=== PATIENT | female | born 1950 | race Caucasian/White ===

== ENCOUNTER 2023-09-02 16:13 | Outpatient (RCR) | payer OTHER, MEDICARE, SELFPAY ==
[2023-09-02 13:39] LABS: Glucose - Point of Care 74 mg/dl (70-99)
[2023-09-02 13:59] LABS: Glucose - Point of Care 83 mg/dl (70-99)
[2023-09-02 14:33] LABS: Glucose - Point of Care 88 mg/dl (70-99)
== END 2023-09-02 23:59 | disposition home or self-care (01) ==
LOC: CRHB 16:13
PROVIDERS: ATTENDING PHYSICIAN Internal Medicine Cardiovascular Disease; FAMILY PHYSICIAN Internal Medicine
DX: Z95.2 Presence of prosthetic heart valve (principal)
CPT/HCPCS: 82962; 93798

== ENCOUNTER → 2023-09-18 10:14 | Outpatient (REF) | payer OTHER, SELFPAY | LOC: DHCBC HW 10:14 | PROVIDERS: ATTENDING PHYSICIAN Nurse Practitioner; FAMILY PHYSICIAN Internal Medicine | DX: I10 Essential (primary) hypertension (principal); Z95.2 Presence of prosthetic heart valve; I48.0 Paroxysmal atrial fibrillation; R60.0 Localized edema | CPT/HCPCS: 93306 ==

== ENCOUNTER 2023-10-02 09:37 | Outpatient (RCR) | payer OTHER, MEDICARE, SELFPAY ==
[2023-09-06 09:22] LABS: Glucose - Point of Care 95 mg/dl (70-99)
[2023-09-06 10:05] LABS: Glucose - Point of Care 111 mg/dl (70-99)
== END 2023-10-02 23:59 | disposition home or self-care (01) ==
LOC: CRHB 09:37
PROVIDERS: ATTENDING PHYSICIAN Internal Medicine Cardiovascular Disease; FAMILY PHYSICIAN Internal Medicine
DX: Z95.2 Presence of prosthetic heart valve (principal); I50.9 Heart failure, unspecified; I34.0 Nonrheumatic mitral (valve) insufficiency
CPT/HCPCS: 82962; 93797; 93798

== ENCOUNTER 2023-10-14 14:40 | Outpatient (RCR) | payer OTHER, MEDICARE, SELFPAY | END 2023-10-14 23:59 | disposition home or self-care (01) | LOC: CRHB 14:40 | PROVIDERS: ATTENDING PHYSICIAN Internal Medicine Cardiovascular Disease; FAMILY PHYSICIAN Internal Medicine | DX: Z95.2 Presence of prosthetic heart valve (principal); I48.91 Unspecified atrial fibrillation; I34.0 Nonrheumatic mitral (valve) insufficiency; I11.0 Hypertensive heart disease with heart failure; I50.9 Heart failure, unspecified; J96.90 Respiratory failure, unspecified, unspecified whether with hypoxia or hypercapnia; J90 Pleural effusion, not elsewhere classified | CPT/HCPCS: 93797; 93798 ==

== ENCOUNTER 2023-11-27 14:17 | Outpatient (RCR) | payer OTHER, MEDICARE, SELFPAY ==
[2023-11-13 13:49] VITALS: BP 117/54
[2023-11-13] MEDS: INJECTAFER 265 MG IV (14:01)
[2023-11-13 15:00] VITALS: BP 109/73
[2023-11-27 14:48] VITALS: BP 132/85
[2023-11-27] MEDS: INJECTAFER 265 MG IV (15:03)
[2023-11-27 16:26] VITALS: BP 111/75
== END 2023-11-28 14:01 | disposition home or self-care (01) ==
LOC: OID 14:17
PROVIDERS: ATTENDING PHYSICIAN Internal Medicine
DX: D64.9 Anemia, unspecified (principal); E61.1 Iron deficiency; R94.5 Abnormal results of liver function studies; Z95.2 Presence of prosthetic heart valve
CPT/HCPCS: 96365; J1439

== ENCOUNTER 2024-03-14 19:12 | Inpatient (IN) | payer OTHER, MEDICARE, SELFPAY ==
[2024-03-14] VITALS (17 sets, daily range): BP systolic 103–124; BP diastolic 63–82; BMI 22.2; BMI 21.8
[2024-03-14] MEDS: PROTONIX IV 40 MG IV (17:37)
[2024-03-14] MEDS: NSS 1000 IV (17:40)
[2024-03-14 18:01] LABS: % Basophils 0.6 % (0-2); % Immature Granulocytes 0.4 % (0-0.5); % Lymphocytes 19.8 % (20.5-51.1); % Monocytes 10.3 % (1.7-9.3); % Neutrophils 66.9 % (42.2-75.2); Absolute Eosinophils 0.1 10^3/uL (0-0.7); Absolute Lymphocytes 1.1 10^3/uL (1.2-3.4); Absolute Monocytes 0.6 10^3/uL (0.1-0.6); Absolute Neutrophils 3.7 10^3/uL (1.4-6.5); Hematocrit 18.2 % (37.0-47.0); Hemoglobin 5.6 g/dL (12.0-16.0); Mean Corp Hgb Conc. 30.8 g/dL (33.0-37.0); Mean Corpuscular Hgb 27.5 pg (27.0-31.0); Mean Corpuscular Volume 89.2 fL (81.0-99.0); Mean Platelet Volume 10.1 fL (7.4-10.4); Nucleated Red Blood Cells % 0 %; Platelet Count 366 10^3/uL (130-400); Red Blood Cell Count 2.04 10^6/uL (4.20-5.40); Red Cell Dist. Width 15.6 % (11.5-14.5); White Blood Cell Count 5.5 10^3/uL (4.8-10.8)
[2024-03-14 18:09] LABS: ALT (SGPT) 25 U/L (0-35); AST (SGOT) 34 U/L (14-36); Albumin 2.4 g/dl (3.5-5.0); Alkaline Phosphatase 147 U/L (38-126); Blood Urea Nitrogen 18 mg/dl (7-17); Calcium 8.6 mg/dl (8.4-10.2); Carbon Dioxide 25 mmol/L (22-30); Chloride 107 mmol/L (98-107); Estimated Creatinine Clearance 46 ml/min; Glucose 120 mg/dl (70-99); Potassium 4.2 mmol/L (3.5-5.1); Sodium 135 mmol/L (135-145); Total Bilirubin < 0.1 mg/dl (0.2-1.3); Total Protein 4.2 g/dl (6.3-8.2); eGFR > 60.00
--- NOTE | 2024-03-14 18:18 | HPS.HSE ---
Family Physician
-
Family Physician:
Chief Complaint
-
bleeding
History of Present Illness
Ms. Lana Ambrocio is a 73 yo woman with hx mitral valve insufficiency with flail mitral valve leaflet s/p urgent bioprosthetic mitral valve replacement 07/22/23, paroxysmal afib, essential HTN, PUD with ulcer resulting in obstruction s/p
gastrojejunostomy bypass 2002, presents to the ER with melena.
Patient states she had some cramping since (2 days ago). She had decreased appetite and this morning noticed black stool. She had two episodes, last one being earlier today. No chest pain. Mild lightheadedness, currently feels okay.
No recent fevers/chills. No JOSEPH. No nausea/vomiting. No LE swelling.
Medical History
Past Medical History
Past Medical History: Reports Other
Additional Past Medical History:
Hypothyroidism
Mitral valve prolapse
DDD (degenerative disc disease), lumbar
Heart murmur
Melena
Vitamin D deficiency
Anastomotic ulcer�
Essential (primary) hypertension
History of colon polyps
H/O bypass gastrojejunostomy �
Past Surgical History: Reports Cardiac (bioprosthetic mitral valve repair 2022)
Additional Past Surgical History:
See above
Social History
Tobacco: Non-smoker
Alcohol: None
Drug: None
Personal:
Living: With Family
Employment: Retired
Family History
Family History: Not pertinent
Allergies / Home Medications
Allergies reflects when Allergies were last updated in [facility].
Home Medications with original date entered in [facility]
Allergy/Medication List:
Allergies
Allergy/AdvReac Type Severity Reaction Status Date / Time
No Known Allergies Allergy Unverified 03/14/24 17:00
Home Medications
levothyroxine 100 mcg tablet 100 mcg PO DAILY Thyroid 10/21/21
acetaminophen 325 mg tablet 650 mg (2 x 325 mg) PO Q4HPRN PRN mild pain,headache,temp >101F #0 tabs 07/28/23
apixaban 5 mg tablet (Eliquis) 5 mg PO BID Blood clot prevention/tx #60 tabs 07/28/23
aspirin 81 mg chewable tablet (Children's Aspirin) 81 mg PO DAILY Blood clot prevention/tx #30 tabs 07/28/23
empagliflozin 10 mg tablet (Jardiance) 10 mg PO DAILY Heart Failure #30 tabs 07/28/23
pantoprazole 40 mg tablet,delayed release 40 mg PO DAILY GI prophylaxis #30 tabs 07/28/23
calcium carbonate 600 mg-vitamin D3 10 mcg (400 unit) tablet (Calcium 600 + D(3)) 2 tab PO DAILY 11/13/23
cetirizine 10 mg tablet (Zyrtec) 10 mg PO DAILY PRN seasonal allergy 11/13/23
cholecalciferol (vitamin D3) 50 mcg (2,000 unit) tablet (Vitamin D3) 3 unit PO DAILY 11/13/23
furosemide 40 mg tablet 20 mg PO Q48H Fluid retention/Swelling 11/13/23
multivitamin 1 cap PO DAILY 11/13/23
albuterol 90 mcg/actuation aerosol inhaler 90 mcg inhalation PRN PRN shortness of breath/wheeze 11/27/23
iron 65 mg PO DAILY 03/14/24
metoprolol tartrate 25 mg tablet 12.5 mg PO Q12 Heart disease/condition 03/14/24
potassium chloride 20 mEq tablet,extended release(part/cryst) 20 meq PO Q48H Electrolyte Repletion 03/14/24
Review of Systems
-
History Source: Patient
A 12 point ROS was completed and negative except as noted: Yes
Physical Exam
Vital Signs
Vital Signs
Temp Pulse Resp BP Pulse Ox
98.1 F 100 17 120/82 99
03/14/24 16:59 03/14/24 17:45 03/14/24 17:45 03/14/24 17:19 03/14/24 17:45
Physical Exam
General: No Apparent Distress
HEENT: PERRLA and Other (pale conjunctiva )
Respiratory: Clear; No Wheezes
GI: Soft and Non Tender
Musculoskeletal: No Edema
Skin: Warm and Dry; No Rash
Neuro: AO x 3
Psych: Calm
Laboratory Results
-
03/14/24 17:42
03/14/24 17:42
Laboratory Results
Total Bilirubin < 0.1 mg/dl (0.2-1.3) L 03/14/24 17:42
AST 34 U/L (14-36) 03/14/24 17:42
ALT 25 U/L (0-35) 03/14/24 17:42
Alkaline Phosphatase 147 U/L (38-126) H 03/14/24 17:42
Data Reviewed
-
Diagnostic Radiology: Report Reviewed by me
Lab Data: Labs Reviewed by me
Impression/Plan
-
Ms. Lana Ambrocio is a 73 yo woman with hx mitral valve insufficiency with flail mitral valve leaflet s/p urgent bioprosthetic mitral valve replacement 07/22/23, paroxysmal afib, essential HTN, PUD with ulcer resulting in obstruction s/p
gastrojejunostomy bypass 2002, presents to the ER with melena.
Triage VS: P 114, BP 120/82, SpO2 100% RA
LABS: WBC 5.5, Hg 5.6, PLT 366, Na 135, K+ 4.2, Cl 107, BUN 18, Cr 0.9, Glucose 120, AST 34, ALT 25, Alk Phos 147
ordered for 2 units PRBC and Protonix gtt,f luids
Melena
Acute Gastrointestinal Bleed
Acute Blood Loss Anemia
Hx Peptic Ulcer Disease resulting in obstruction requiring bypass
-admit to IMU
-IV Protonix gtt
-trend Hg
-hold Eliquis
Hx mitral valve insufficiency with flail mitral valve leaflet s/p urgent bioprosthetic mitral valve replacement 07/22/23
-TTE 09/18/23 - EF 50-55%; normal functioning valve replacement
-patient is on Lasix 20q 48 hours at home and Jardiance daily - hold
-monitor volume status closely
Paroxysmal Atrial Fibrillation
-hold Eliquis
Hypothyroidism
-[employer] Synthroid
DVT PPx SCD
FULL CODE
76 minutes spent on patient interaction
--- NOTE | 2024-03-14 18:29 | ED.GENMED ---
History of Present Illness
General
Chief Complaint: Rectal Bleeding
Source: patient
Exam Limitations: none
Time Seen by Provider: 03/14/24 17:20
Nursing documentation reviewed up to this point in time: agreed with
History of Present Illness
History of Present Illness:
Patient reports upset stomach [place] PM. Describes 'feeling off' this weekend. Today passed black stool and has been feeling weak since. Hx of bleeding gastric ulcer in 2021. She states she feels that the symptoms are the same. Brought to ED by
spouse for eval. On eliquis for valve surgery this past spring. States she has not taken any medcation today. Last eliquis dose was last PM.
Past History
Past History
ED Past Medical History: CHF, HTN, Hypothyroidism and Other (Stomach ulcer)
ED Past Surgical History: Cardiac (mitral valve)
Social History
Tobacco: Non-smoker
Alcohol: None
Drug: None
Personal:
Living: with family
Review of Systems
Review of Systems
Allergies reviewed?: Yes
All Other Systems: ROS reviewed and negative except as documented in HPI and ROS
Constitutional: Reports no symptoms
EENT: Reports no symptoms
Respiratory: Reports no symptoms
Cardiac: Reports no symptoms
ABD/GI: Reports black stools
: Reports no symptoms
Musculoskeletal: Reports no symptoms
Skin: Reports no symptoms
Neurological: Reports weakness
Psychiatric: Reports no symptoms
Phy Exam
General Physical Exam
General Presentation: moderate distress
General age: appears stated age
General Skin: warm and dry
General Habitus: normal
General Mental: alert
Cardiovascular Exam
Cardiovascular Exam: regular rate/rhythm and no edema
Pulmonary Exam
Pulmonary Exam: lungs clear and no respiratory distress
Gastrointestinal Exam
Gastrointestinal Exam: normal bowel sounds, non tender, soft, no organomegaly, non distended and no cva tenderness
Rectal Exam: normal sphincter tone, hemorrhoids and soft stool
Stool: black
Guaiac Status: positive
Musculoskeletal Exam
Musculoskeletal Exam: full ROM and neuro vasc intact
Skin Exam
Skin Exam: normal color, warm/dry and no rash
Psychiatric Exam
Psychiatric Exam: normal mood/affect
Course
Orders/Labs/Results
Orders:
Orders
03/14/24 Lunch
Clear Liquid
At Your Request: Full Participation
03/14/24 17:31
Pantoprazole [Protonix IV] 40 mg IV NOW STA
03/14/24 17:32
0.9% Sodium Chloride 1000 ml [Nss] 1,000 ml IV BOLUS
03/14/24 17:42
Type+Screen Urgent
Complete Blood Count/With Diff Urgent
Comprehensive Metabolic Panel Urgent
03/14/24 18:03
Pantoprazole 80 mg/100 ml Nss [Protonix] 80 mg in 100 ml IV NOW
03/14/24 18:04
* Blood Bank Products Urgent
Blood Bank Products: *Packed RBC Leuko(PRBC's)
Quantity: 2
Transfuse Today: Yes
Reason: Bleeding
03/14/24 18:25
PTT Urgent
Prothrombin Time Urgent
03/14/24 18:36
Consult Gastroenterology [GASTROINTESTINAL CONSULT] Urgent
Consulting Provider: Gris Mendiola
Was physician already notified: Yes
03/14/24 18:50
Admit/Transfer Patient As Directed
Co-Sign Provider:
Level of Care: Inpatient admission
Assign to:: IMU- Intermediate Care
Physician / Group: Halley Almaraz
Diagnosis: Acute GI Bleed
Reason for Hospitalization: Acute GI Bleed
Expected length of stay greater than two midnights?: Yes
ELOS- Estimated Length of Stay in days: 3
I certify the patient meets the requirements for IP care: Yes
PRN Pain Medication Management As Directed
May give lesser potent ordered pain med per pt: Yes
preference::
Protocol:: Medication orders for pain may be administered in a
manner that supports deferring to patient preference
when the pt is:
- Requesting an ordered lesser potent pain medication.
Least to most potent pain medications are defined
as: acetaminophen < NSAID < tramadol < opioids
(morphine, oxycodone, hydromorphone).
- Requesting a lesser dose of the same medication IF
ORDERED.
- Requesting a less intrusive route of administration
if both routes are prescribed by the provider (PO <
IV).
03/14/24 18:51
Code Status As Directed
Resuscitation Status: Full Code
03/14/24 23:20
Acetaminophen [Tylenol] 650 mg PO Q4HPRN PRN
03/14/24 23:20
Activity As Directed
Activity Level: As Tolerated
INT (Intravenous Needle Therapy) As Directed
Comment: Place 2 IV catheters of the largest bore possible until stable
Orthostatic Vital Signs As Directed
Orthostatic VS Frequency: Now
Comment: then every four hours for twenty-four hours
Pneumatic Compression Sleeves As Directed
Type: Knee high
Vital Signs As Directed
Frequency: Per unit guidelines
DX Deep Vein Thrombosis Video Routine
03/14/24 23:25
Albuterol [ProAIR HFA INHALER] 90 puff INH R BIDPRN PRN
03/14/24 23:30
Metoprolol [Lopressor] 12.5 mg PO Q12
03/15/24 00:50
H&H Q6H
03/15/24 04:00
Pantoprazole 80 mg/100 ml Nss [Protonix] 80 mg in 100 ml IV Q10H
03/15/24 05:10
Basic Metabolic Panel IN AM
Complete Blood Count/No Diff IN AM
03/15/24 Breakfast
NPO
Allow oral meds: Yes
Allow clear liquids: No
Levothyroxine [Synthroid] 100 mcg PO DAILY@0600
Abnormal Lab Results
03/14/24 03/14/24
17:42 18:25
RBC 2.04 L 10^6/uL
(4.20-5.40)
Hgb 5.6 L* g/dL
(12.0-16.0)
Hct 18.2 L* %
(37.0-47.0)
MCHC 30.8 L g/dL
(33.0-37.0)
RDW 15.6 H %
(11.5-14.5)
Absolute Lymphs (auto) 1.1 L 10^3/uL
(1.2-3.4)
Lymphocytes % 19.8 L %
(20.5-51.1)
Monocytes % 10.3 H %
(1.7-9.3)
PT 15.3 H Sec
(11.4-14.6)
BUN 18 H mg/dl
(7-17)
Glucose 120 H mg/dl
(70-99)
Total Bilirubin < 0.1 L mg/dl
(0.2-1.3)
Alkaline Phosphatase 147 H U/L
(38-126)
Total Protein 4.2 L g/dl
(6.3-8.2)
Albumin 2.4 L g/dl
(3.5-5.0)
Crossmatch IS Only See Detail
03/14/24 17:42
03/14/24 17:42
Vital Signs
Initial and Last Documented VS:
Initial Vital Signs
Temp Pulse Resp BP Pulse Ox
98.1 F 116 20 123/78 100
03/14/24 16:59 03/14/24 16:59 03/14/24 16:59 03/14/24 16:59 03/14/24 16:59
Last Documented Vital Signs
Temp Pulse Resp BP Pulse Ox
97.9 F 86 16 138/82 96
03/15/24 19:30 03/15/24 20:21 03/15/24 19:30 03/15/24 20:21 03/15/24 19:30
*Critical Care Note
Total Time (30-74mins, 75-104mins- exclusive of procedures): Not Applicable
Update Note
Update Note:
Dr. Mendiola consulted. Hold Kcentra unless further bleeding occurs. Hgb 5.6. 2u PRBC's ordered. VSS
ED Attending Note
-
Portions of this chart may have been created with voice recognition software.� Occasional wrong word or��sound alike� substitutions may have occurred due to the inherent limitations of voice recognition software.
Discharge Plan
Departure
Patient Disposition: Admit
Date of Disposition: 03/14/24
Time of Disposition: 18:27
Presentation/result/management discussed w/ accepting MD/DO: Hospitalist
Condition: Fair
Covid-19: Not Applicable
Discharge Problem:
Acute GI bleeding
Interventions
Interventions:
*Risk Screen - Suicide Last Done: 03/14/24 17:49
*General Assessment Last Done: 03/14/24 17:49
*Neglect/Abuse Screening Last Done: 03/14/24 17:49
ED- Fall Risk Assessment Last Done: 03/14/24 17:49
*ED COVID-19 Vaccine History Last Done: 03/14/24 17:49
*Nursing Disposition Last Done: 03/14/24 23:19
UZ-Cwzuni-Otwcsekdxu Assessment Last Done: 03/14/24 17:50
ED- Cardiac Assessment Last Done: 03/14/24 17:50
ED- Pulmonary Assessment Last Done: 03/14/24 17:50
Discharge Date and Time
Discharge Date/Time: 03/14/24 23:19
[2024-03-14] MEDS: PROTONIX 100 IV (18:33)
[2024-03-14 18:39] LABS: INR 1.23; PT 15.3 Sec (11.4-14.6)
[2024-03-14 18:40] LABS: APTT 27.7 Sec (23.4-35.0)
[2024-03-14] MEDS: LOPRESSOR 12.5 MG PO (23:30)
--- NOTE | 2024-03-14 23:45 | PTCARENOTE ---
Pt received from ED via stretcher to [id number]. With min assist pt amb to bathroom to void. Denies dizziness/lightheadedness. VSS. Afebrile. SR on CM . POX RA 96%. Denies abd pain/discomfort. Skin pale. Protonix gtt infusing as ordered. 2 units PRBC
finished infusing in ED. Pt states she feels much better since infusions. Rest of assessment as documented. Oriented to room and surroundings. Call concepcion remains within reach. Will continue to monitor.
[2024-03-15] VITALS (13 sets, daily range): BP systolic 109–144; BP diastolic 70–83; PULSE 87–95; BMI 21.7
[2024-03-15 01:09] LABS: Hematocrit 26.5 % (37.0-47.0)
[2024-03-15] MEDS: PROTONIX 100 IV ×3 (03:52→23:52)
[2024-03-15] MEDS: SYNTHROID 100 MCG PO (05:04)
[2024-03-15 05:29] LABS: Hematocrit 25.2 % (37.0-47.0); Hemoglobin 8.5 g/dL (12.0-16.0); Mean Corp Hgb Conc. 33.7 g/dL (33.0-37.0); Mean Corpuscular Hgb 28.6 pg (27.0-31.0); Mean Corpuscular Volume 84.8 fL (81.0-99.0); Mean Platelet Volume 9.8 fL (7.4-10.4); Platelet Count 262 10^3/uL (130-400); Red Blood Cell Count 2.97 10^6/uL (4.20-5.40); Red Cell Dist. Width 15.8 % (11.5-14.5); White Blood Cell Count 5.1 10^3/uL (4.8-10.8)
[2024-03-15 05:43] LABS: Blood Urea Nitrogen 18 mg/dl (7-17); Calcium 7.9 mg/dl (8.4-10.2); Carbon Dioxide 26 mmol/L (22-30); Chloride 111 mmol/L (98-107); Estimated Creatinine Clearance 59 ml/min; Glucose 90 mg/dl (70-99); Potassium 4.2 mmol/L (3.5-5.1); Sodium 134 mmol/L (135-145); eGFR > 60.00
--- NOTE | 2024-03-15 08:32 | W.PN.HOSP.TC ---
Today's Communication/Plan
-
OK for transfer to tele
-repeat Hg this evening
Assessment / Plan
Assessment / Plan
Ms. Lana Ambrocio is a 73 yo woman with hx mitral valve insufficiency with flail mitral valve leaflet s/p urgent bioprosthetic mitral valve replacement 07/22/23, paroxysmal afib, essential HTN, PUD with ulcer resulting in obstruction s/p
gastrojejunostomy bypass 2002, presents to the ER with melena.
Melena
Acute Gastrointestinal Bleed
Acute Blood Loss Anemia
Hx Peptic Ulcer Disease resulting in obstruction requiring bypass
-admit to IMU
-IV Protonix gtt
-trend Hg
-hold Eliquis
-appreciate GI, plan for EGD tomorrow
Hx mitral valve insufficiency with flail mitral valve leaflet s/p urgent bioprosthetic mitral valve replacement 07/22/23
-TTE 09/18/23 - EF 50-55%; normal functioning valve replacement
-patient is on Lasix 20q 48 hours at home and Jardiance daily - hold
-monitor volume status closely
Paroxysmal Atrial Fibrillation
-hold Eliquis
Hypothyroidism
-[employer]OR[employer] Synthroid
DVT PPx SCD
FULL CODE
51 minutes spent on patient care
Anticipated Discharge: > 48 hours
Subjective/Interval History
-
Date of Service: March 15, 2024
feeling well
no chest pain or shortness of breath
Objective Data
-
Labs:
Laboratory Results
03/15/24 03/15/24 03/15/24
00:50 05:10 13:00
WBC 5.1
Hgb 9.0 L D 8.5 L Pending
Hct 26.5 L 25.2 L Pending
Plt Count 262 D
Sodium 134 L
Potassium 4.2
Chloride 111 H
Carbon Dioxide 26
BUN 18 H
Creatinine 0.7
Glucose 90
Calcium 7.9 L
03/15/24
19:00
WBC
Hgb Pending
Hct Pending
Plt Count
Sodium
Potassium
Chloride
Carbon Dioxide
BUN
Creatinine
Glucose
Calcium
Vital Signs:
Vital Signs
Temp Pulse Resp BP Pulse Ox
98.3 F 90 22 109/74 96
03/15/24 07:34 03/15/24 06:00 03/15/24 06:00 03/15/24 06:00 03/15/24 00:11
I&O
03/14/24 03/15/24 03/16/24
06:59 06:59 06:59
Intake Total 760 / 760
Balance 760 / 760
Review of Systems
-
History Source: Patient
All other systems: Reviewed and negative
Physical Exam
-
General: No Apparent Distress
HEENT: PERRLA
Respiratory: Clear to Auscultation; Negative Wheezes
Cardiac: Regular Rhythm and S1/S2
GI: Soft and Nontender
Musculoskeletal: No Edema
Skin: Warm and Dry; Negative Rash
Neuro: AO x 3
Psych: Calm
Data Reviewed
-
Diagnostic Radiology: Report Reviewed by me
Labs: Labs Reviewed by me
[2024-03-15] MEDS: LOPRESSOR 12.5 MG PO ×2 (08:57→20:21)
--- NOTE | 2024-03-15 11:09 | CON.GI ---
Consultation
-
Date/Time Consultation Requested: 03/14/24
Date/Time Consultation Performed: 03/15/24
Requesting Provider:
Performing Provider:
Reason for Consultation: GIB, acute blood loss anemia
Medical History
Chief Complaint / HPI
Chief Complaint: melena
History of Present Illness:
This is a 73-year-old female with past medical history of GERD, HTN, Hypothyroidism, complicated PUD (s/p exploratory laparotomy truncal vagotomy, hand sewn gastrojejunostomy, drainage of intra-abdominal abscess, and repair of perforated duodenal
ulcer with Tyson patch in 11/[address] Nascimento), gastroparesis, DDD, Osteoporosis, Hx mitral valve insufficiency with flail mitral valve leaflet s/p urgent bioprosthetic mitral valve replacement 07/22/23, A.fib on Eliquis with prior history of upper
GI bleed in 2021 on NSAIDs and Fosamax she did have 3 attempted endoscopies in October 2021 but unable to complete because of a large amount of food in her stomach and she was told to strictly avoid NSAIDs and was taken off Fosamax at that time.� She
also was noted to have a possible abscess at that time and was treated with antibiotics and had a surgical evaluation. It was thought that the gastroparesis was related to post vagotomy state and patent B2 with no obstruction noted. she was also
started on PPI and told to stay indefinitely she sees Dr. Barajas in the office.� She did have a repeat endoscopy in January 2022 which showed jejunal ulcers at the anastomosis nonbleeding.� She had a colonoscopy in April 2022 which showed colon
polyps and was recommended repeat in 2024.� She now presents with history of melena on Saturday and another episode yesterday and on admission was noted to have a hemoglobin of 5.6 and after she received 2 units of packed red blood cells her repeat is
8.5 and her Eliquis is being held. her hemoglobin on 07/27/2023 was 10.5.� She unfortunately had restarted taking Excedrin for the past couple of months almost daily but she says she has been compliant with her pantoprazole.� She denies any nausea
vomiting symptoms no hematemesis.� She also denies any diarrhea or constipation currently.� No recent weight loss no fevers or chills no chest pain dizziness or syncope
Past Medical History
Past Medical History: Other (GERD, HTN, Hypothyroidism, complicated PUD, gastroparesis, DDD, Osteoporosis, Hx mitral valve insufficiency with flail mitral valve leaflet s/p urgent bioprosthetic mitral valve replacement 07/22/23, Yeison on Eliquis)
Past Surgical History: Other (, complicated PUD s/p exploratory laparotomy truncal vagotomy, hand sewn gastrojejunostomy, drainage of intra-abdominal abscess, and repair of perforated duodenal ulcer with Tyson patch in 11/2002 by
Azam), s/p urgent bioprosthetic mitral valve replacement 07/22/23)
Social History
Tobacco: Non-Smoker
Alcohol: None
Drug: None
Living: With Family
Family History
Family History: Reviewed & Not Pertinent
Allergies / Home Medications
Allergy/AdvReac Type Severity Reaction Status Date / Time
No Known Allergies Allergy Unverified 03/14/24 17:00
�Medication �Instructions �Recorded
levothyroxine 100 mcg tablet 100 mcg PO DAILY Thyroid 10/21/21
acetaminophen 325 mg tablet 650 mg (2 x 325 mg) PO Q4HPRN PRN 07/28/23
mild pain,headache,temp >101F #0
tabs
apixaban 5 mg tablet (Eliquis) 5 mg PO BID Blood clot 07/28/23
prevention/tx #60 tabs
aspirin 81 mg chewable tablet 81 mg PO DAILY Blood clot 07/28/23
(Children's Aspirin) prevention/tx #30 tabs
empagliflozin 10 mg tablet 10 mg PO DAILY Heart Failure #30 07/28/23
(Jardiance) tabs
pantoprazole 40 mg tablet,delayed 40 mg PO DAILY GI prophylaxis #30 07/28/23
release tabs
calcium carbonate 600 mg-vitamin 2 tab PO DAILY Supplement 11/13/23
D3 10 mcg (400 unit) tablet
(Calcium 600 + D(3))
cetirizine 10 mg tablet (Zyrtec) 10 mg PO DAILY PRN seasonal allergy 11/13/23
cholecalciferol (vitamin D3) 50 3 unit PO DAILY Supplement 11/13/23
mcg (2,000 unit) tablet (Vitamin
D3)
furosemide 40 mg tablet 20 mg PO Q48H Fluid 11/13/23
retention/Swelling
multivitamin 1 cap PO DAILY Supplement 11/13/23
albuterol 90 mcg/actuation aerosol 90 mcg inhalation PRN PRN 11/27/23
inhaler shortness of breath/wheeze
iron 65 mg PO DAILY Supplement 03/14/24
metoprolol tartrate 25 mg tablet 12.5 mg PO Q12 Heart 03/14/24
disease/condition
potassium chloride 20 mEq 20 meq PO Q48H Electrolyte 03/14/24
tablet,extended release(part/cryst) Repletion
Review of Systems
-
All other systems: A 12 pt ROS was Negative except as stated above in HPI
Vital Signs
Temp Pulse Resp BP Pulse Ox
98.0 F 96 12 118/75 99
03/15/24 11:08 03/15/24 08:59 03/15/24 08:59 03/15/24 08:59 03/15/24 09:06
Physical Exam
Exam
General: No Apparent Distress
HEENT: Normocephalic
Respiratory: Clear
Cardiac: S1/S2
GI: Soft, Non Tender, Non Distended and Normal Bowel Sounds
Musculoskeletal: No Clubbing
Skin: Warm
Neuro: Awake, Alert and Oriented
Psych: Calm
Results
WBC 5.1 10^3/uL (4.8-10.8) 03/15/24 05:10
Hgb Cancelled 03/15/24 19:00
Hct Cancelled 03/15/24 19:00
MCV 84.8 fL (81.0-99.0) 03/15/24 05:10
Plt Count 262 10^3/uL (130-400) D 03/15/24 05:10
Absolute Neuts (auto) 3.7 10^3/uL (1.4-6.5) 03/14/24 17:42
PT 15.3 Sec (11.4-14.6) H 03/14/24 18:25
INR 1.23 03/14/24 18:25
APTT 27.7 Sec (23.4-35.0) 03/14/24 18:25
Sodium 134 mmol/L (135-145) L 03/15/24 05:10
Potassium 4.2 mmol/L (3.5-5.1) 03/15/24 05:10
Chloride 111 mmol/L (98-107) H 03/15/24 05:10
Carbon Dioxide 26 mmol/L (22-30) 03/15/24 05:10
BUN 18 mg/dl (7-17) H 03/15/24 05:10
Creatinine 0.7 mg/dL (0.6-1.0) 03/15/24 05:10
Calcium 7.9 mg/dl (8.4-10.2) L 03/15/24 05:10
Total Bilirubin < 0.1 mg/dl (0.2-1.3) L 03/14/24 17:42
AST 34 U/L (14-36) 03/14/24 17:42
ALT 25 U/L (0-35) 03/14/24 17:42
Alkaline Phosphatase 147 U/L (38-126) H 03/14/24 17:42
Diagnostic Image Results:
Prior GI Procedures:
04/20/2022 colonoscopy diverticulosis and multiple colon polyps and recommended repeat in 3 years
01/19/2022 EGD normal esophagus, moderate erythema stomach, medium amount of food in the stomach, few nonbleeding superficial ulcers in the jejunum at the anastomosis largest 2 mm in size. Jejunum more distal was normal. Exam limited due to food in
the stomach unable to do a full inspection. �
10/23/2021 EGD: Normal esophagus. A large amount of food (residue) in the stomach. No specimens collected.
10/22/21 EGD done. Aborted again in stomach due to food, green in color. Does not appear to be blood
10/21/2021 EGD done. Distal esophagitis. Large amount of food, dark green in color. No overt blood, but color of food bezoar was coffee/green. Aborted procedure in stomach
Assessment / Plan
-
1. Acute blood loss anemia with melena 2 episodes 1 on Saturday and one Saturday with hemoglobin of 5.6 which responded to 2 units of packed red blood cells repeat hemoglobin is 8.5 with no further active bleeding. Eliquis on hold last dose was 8/10
a.m. Most likely etiology is recurrent peptic ulcer disease from NSAIDs she does have prior history of complicated obstructing PUD in 2002 as described above is status post B2 and vagotomy and Tyson patch for perforated DU and also had recurrent
upper GI bleed secondary to NSAID use in 2021 and was noted to have anastomotic ulcers. Continue Protonix drip will schedule for endoscopy tomorrow told her to strictly avoid NSAIDs indefinitely and to stay on PPI indefinitely. She says she came
off of NSAIDs after the upper GI bleed in 2021 but restarted again a couple of months ago
2 as described above she had 3 aborted endoscopies in October 2021 for retained food in stomach when she presented with the upper GI bleed and finally was able to complete EGD in January 2022 as outpatient. Most likely has gastroparesis from post
vagotomy state but she has been tolerating meals without any symptoms of nausea vomiting or early satiety encouraged her to eat small frequent, low-fat, low residue meals.
3. History of multiple colon polyps due for repeat colonoscopy in 2024
Data Reviewed
-
Radiology: Report Reviewed by me
-
-
Thank you for consultation and allowing me to participate in the patient's care. Please call the nutrition aides teacher GI physician during the after hours with any questions or concerns.
--- NOTE | 2024-03-15 12:03 | TRANSFER ---
Pt was rec'd this am from operation shift supervisor, AOx3, feeling better. Orthos neg for tilt. +1 black BM this am-pt reported to MD. MONTERO, plan discussed with care team, pt stable to be downgraded to tele. Per Dr. Almaraz, next Hgb draw due at 16:00, please TT
result to her.
Report called to [facility], pt transported via stretcher with volunteer.
[2024-03-15 15:48] LABS: Hemoglobin 9.7 g/dL (12.0-16.0)
[2024-03-15] MEDS: TYLENOL 650 MG PO (20:23)
[2024-03-16] VITALS (7 sets, daily range): BP systolic 107–131; BP diastolic 1–85; PULSE 95–104
[2024-03-16] MEDS: SYNTHROID 100 MCG PO (05:13)
[2024-03-16] MEDS: LOPRESSOR 12.5 MG PO (08:20)
[2024-03-16] MEDS: TYLENOL 650 MG PO (08:28)
[2024-03-16 08:55] LABS: Hematocrit 26.5 % (37.0-47.0); Hemoglobin 8.8 g/dL (12.0-16.0); Mean Corp Hgb Conc. 33.2 g/dL (33.0-37.0); Mean Corpuscular Hgb 28.9 pg (27.0-31.0); Mean Corpuscular Volume 86.9 fL (81.0-99.0); Mean Platelet Volume 9.7 fL (7.4-10.4); Platelet Count 271 10^3/uL (130-400); Red Blood Cell Count 3.05 10^6/uL (4.20-5.40); Red Cell Dist. Width 15.9 % (11.5-14.5); White Blood Cell Count 4.2 10^3/uL (4.8-10.8)
[2024-03-16] MEDS: PROTONIX 100 IV ×2 (08:59→13:15)
[2024-03-16 09:41] LABS: Blood Urea Nitrogen 9 mg/dl (7-17); Calcium 7.7 mg/dl (8.4-10.2); Carbon Dioxide 23 mmol/L (22-30); Chloride 110 mmol/L (98-107); Estimated Creatinine Clearance 69 ml/min; Glucose 94 mg/dl (70-99); Potassium 3.8 mmol/L (3.5-5.1); Sodium 135 mmol/L (135-145); eGFR > 60.00
--- NOTE | 2024-03-16 12:33 | W.PN.HOSP.TC ---
Addendum entered and electronically signed by Tacos Thornton MD 03/16/24 18:09:
Acute gastrointestinal bleeding likely exacerbated with the use of NSAIDs and an aspirin Eliquis
Discussed with gastroenterology. Okay for discharge. Hold aspirin and Eliquis for 2 days.
Postprocedure patient tolerated diet.
More than 30 minutes spent in discharge including
Final examination of the patient
Summarizing hospital stay
Instructions for continuing care to all relevant caregivers
Preparation of discharge records, prescriptions, and referral forms
Total time spent (in minutes): 55
Original Note:
Today's Communication/Plan
-
await EGD
GI recs
restart eliquis pending Gi procedures/recs
Assessment / Plan
Assessment / Plan
Ms. Lana Ambrocio is a 73 yo woman with hx mitral valve insufficiency with flail mitral valve leaflet s/p urgent bioprosthetic mitral valve replacement 07/22/23, paroxysmal afib, essential HTN, PUD with ulcer resulting in obstruction s/p
gastrojejunostomy bypass 2002, presents to the ER with melena.
Melena
Acute Gastrointestinal Bleed
Acute Blood Loss Anemia
Hx Peptic Ulcer Disease resulting in obstruction requiring bypass
-IV Protonix gtt
-trend Hg. Hgb 8.8
-hold Eliquis
-appreciate GI, plan for EGD today
Hx mitral valve insufficiency with flail mitral valve leaflet s/p urgent bioprosthetic mitral valve replacement 07/22/23
-TTE 09/18/23 - EF 50-55%; normal functioning valve replacement
-patient is on Lasix 20q 48 hours at home and Jardiance daily - hold
-monitor volume status closely
Paroxysmal Atrial Fibrillation
-hold Eliquis
Hypothyroidism
-GLASS CURVATURE GAUGER Synthroid
DVT PPx SCD
FULL CODE
Anticipated Discharge: Within 24 hours
Subjective/Interval History
-
Date of Service: March 16, 2024
Abdominal pain nausea vomiting
Awaiting for EGD
Objective Data
-
Labs:
Laboratory Results
03/16/24
08:27
WBC 4.2 L
Hgb 8.8 L
Hct 26.5 L
Plt Count 271
Sodium 135
Potassium 3.8
Chloride 110 H
Carbon Dioxide 23
BUN 9
Creatinine 0.5 L
Glucose 94
Calcium 7.7 L
Vital Signs:
Vital Signs
Temp Pulse Resp BP Pulse Ox
97.9 F 91 14 117/73 98
03/16/24 11:00 03/16/24 11:00 03/16/24 11:00 03/16/24 11:00 03/16/24 11:00
I&O
03/15/24 03/16/24 03/17/24
06:59 06:59 06:59
Intake Total 760 / 760 960 / 960
Balance 760 / 760 960 / 960
Physical Exam
-
General: No Apparent Distress
HEENT: Normocephalic, Atraumatic and Moist Mucous Membranes
Respiratory: Clear to Auscultation; Negative Wheezes
Cardiac: Regular Rhythm and S1/S2
GI: Soft and Nontender
Musculoskeletal: No Edema
Skin: Warm and Dry; Negative Rash
Neuro: AO x 3
Psych: Calm
--- NOTE | 2024-03-16 14:21 | CM ---
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
Pharmacy: [facility]
PCP: Dr. Lara
--- NOTE | 2024-03-16 14:39 | PN.CDI ---
CDI
- -
CDI:
Physician Documentation Request
Admit Date: 03/14/24 19:12
Dear Doctor Norberto,
Patient admitted with melena.
03/16 PN, 'Acute Gastrointestinal Bleed...Acute Blood Loss Anemia...hold Eliquis.'
Please clarify the likely relationship between these conditions:
Yes, acute gastrointestinal bleed/ ABLA is associated with/ enhanced by Eliquis.
No, acute gastrointestinal bleed/ ABLA is not associated/ enhanced by Eliquis___ but it is due to ___. (Please specify)
Unable to determine
Use of terms such as suspected, likely, concern for, or probable (associated with a specific diagnosis that is being evaluated, monitored, or treated as if it exists) are acceptable and can be coded in the inpatient setting, when documented at the
time of discharge.
Thank you,
Moraima REED,RN,CCDS
CDI Specialist
Available via tiger text
Please use your independent medical judgment in providing your response.
--- NOTE | 2024-03-16 17:04 | W.DCSUMMARY ---
Discharge Summary
Discharge Data
Date of Admission: 03/14/24
Date of Discharge: 03/16/24
-
Pending Results: No
Hospital Course
73 yo woman with hx mitral valve insufficiency with flail mitral valve leaflet s/p urgent bioprosthetic mitral valve replacement 07/22/23, paroxysmal afib, essential HTN, PUD with ulcer resulting in obstruction s/p gastrojejunostomy bypass 2002,
presents to the ER with melena. Patient hemoglobin was trended with significant drop noted. Patient received units of PRBC. Patient was started on Protonix infusion. Patient was seen and evaluated by gastroenterology. Patient underwent
endoscopy which showed normal esophagus. Patent Billroth II gastrojejunostomy was found, characterized by erythema and ulceration. A medium amount of food (residue) in the stomach. Non-bleeding jejunal ulcers with no stigmata of bleeding. No
specimens collected. Postprocedure discussed with gastroenterology recommended to hold aspirin and Eliquis for 48 hours postprocedure. Patient tolerated diet postprocedure and will be discharged home with recommendation to follow-up outpatient
with primary doctor for repeat blood work. Also recommend to follow-up with the primary art dealer.
Discharge Plan
-
Patient Disposition: Home (Routine Discharge)
Discharge Diagnosis/Procedures: Acute gastrointestinal bleed likely exacerbated due to NSAID usage status post endoscopy
Anemia status post blood transfusion
Condition: Fair
Diet: As tolerated
Activity: With assistance and As tolerated
Driving Restrictions: No driving for 24 hours
Blood Work: CBC IN 1 WEEK with primary doctor.
Activity Restrictions/Additional Instructions:
- No ibuprofen, naproxen, or other non-steroidal anti-inflammatory drugs INDEFINITELY.
Referrals:
Cydney Barajas MD [Active] - None
Gordon Lara MD [Family Provider] -
Prescriptions:
Continued
levothyroxine 100 MCG tablet
100 mcg PO DAILY
Jardiance 10 mg Tablet
10 mg PO DAILY Qty: 30 3RF
acetaminophen 325 mg Tablet
650 mg PO Q4HPRN PRN (Reason: mild pain,headache,temp >101F ) Qty: 0 0RF
cetirizine [Zyrtec] 10 mg Tablet
10 mg PO DAILY PRN (Reason: seasonal allergy)
multivitamin Capsule
1 cap PO DAILY
calcium carbonate-vitamin D3 [Calcium 600 + D(3)] 600 mg-10 mcg (400 unit) Tablet
2 tab PO DAILY
cholecalciferol (vitamin D3) [Vitamin D3] 50 mcg (2,000 unit) Tablet
3 unit PO DAILY
furosemide 40 mg tablet
20 mg PO Q48H
albuterol 90 mcg/actuation Aerosol
90 mcg INHALATION PRN PRN (Reason: shortness of breath/wheeze)
iron
65 mg PO DAILY
potassium chloride 20 mEq tablet,ER particles/crystals
20 meq PO Q48H
metoprolol tartrate 25 mg tablet
12.5 mg PO Q12
Changed
pantoprazole 40 mg Tablet,Delayed Release (Dr/Ec)
40 mg PO BID Qty: 60 0RF
Held
Eliquis 5 mg Tablet
5 mg PO BID Qty: 60 3RF
Hold Instructions: Resume on 03/19/24.
aspirin [Children's Aspirin] 81 mg Tablet,Chewable
81 mg PO DAILY Qty: 30 2RF
Hold Instructions: Resume on 03/19/24.
Discharge Orders:
Discharge Patient (As Directed); Ordered 03/16/24
Ordered By: Tacos Thornton
Discharge Date and Time
Print Language: ALBANIAN
== END 2024-03-16 17:49 | disposition home or self-care (01) | DRG 813 ==
LOC: 4 WEST ACU 19:12
PROVIDERS: Nurse Practitioner; ADMITTING PHYSICIAN Student in an Organized Health Care Education/Training Program; ATTENDING PHYSICIAN Hospitalist; CONSULT PHYSICIAN Internal Medicine Gastroenterology; EMERGENCY PHYSICIAN Emergency Medicine; FAMILY PHYSICIAN Internal Medicine
PROC: 30233N1 Transfusion of Nonautologous Red Blood Cells into Peripheral Vein, Percutaneous Approach (ICD-10-PCS; 2024-03-14)
PROC: 0DJ08ZZ Inspection of Upper Intestinal Tract, Via Natural or Artificial Opening Endoscopic (ICD-10-PCS; 2024-03-16)
DX: D68.32 Hemorrhagic disorder due to extrinsic circulating anticoagulants (principal); K92.1 Melena; D62 Acute posthemorrhagic anemia; I11.0 Hypertensive heart disease with heart failure; I50.9 Heart failure, unspecified; E03.9 Hypothyroidism, unspecified; Z95.3 Presence of xenogenic heart valve; K28.9 Gastrojejunal ulcer, unspecified as acute or chronic, without hemorrhage or perforation; I48.0 Paroxysmal atrial fibrillation; T45.515A Adverse effect of anticoagulants, initial encounter; T39.015A Adverse effect of aspirin, initial encounter; T39.395A Adverse effect of other nonsteroidal anti-inflammatory drugs [NSAID], initial encounter; K21.9 Gastro-esophageal reflux disease without esophagitis; E55.9 Vitamin D deficiency, unspecified; M51.36 Other intervertebral disc degeneration, lumbar region; M81.0 Age-related osteoporosis without current pathological fracture; J30.2 Other seasonal allergic rhinitis; R06.02 Shortness of breath; R06.2 Wheezing; Z79.01 Long term (current) use of anticoagulants; Z79.82 Long term (current) use of aspirin; Z79.84 Long term (current) use of oral hypoglycemic drugs; Z79.890 Hormone replacement therapy; Z79.899 Other long term (current) drug therapy; Z98.0 Intestinal bypass and anastomosis status; Z87.11 Personal history of peptic ulcer disease; Z86.79 Personal history of other diseases of the circulatory system; Z87.19 Personal history of other diseases of the digestive system; Z86.010 Personal history of colon polyps
CPT/HCPCS: 36430; 80048; 80053; 85014; 85018; 85025; 85027; 85610; 85730; 86850; 86900; 86901; 86920; 96361; 96365; 96366; 99285; P9016

== ENCOUNTER → 2024-03-31 09:03 | Outpatient (REF) | payer OTHER, SELFPAY | LOC: HWRCS 09:03 | PROVIDERS: ATTENDING PHYSICIAN Thoracic Surgery (Cardiothoracic Vascular Surgery); FAMILY PHYSICIAN Internal Medicine | DX: Z98.890 Other specified postprocedural states (principal); Z95.2 Presence of prosthetic heart valve | CPT/HCPCS: 93306 ==

== ENCOUNTER → 2024-05-06 16:30 | Outpatient (REF) | payer OTHER, MEDICARE, SELFPAY | LOC: HWRAD 16:30 | PROVIDERS: ATTENDING PHYSICIAN Internal Medicine | DX: J18.9 Pneumonia, unspecified organism (principal) | CPT/HCPCS: 71046 ==

== ENCOUNTER → 2024-11-05 12:10 | Outpatient (REF) | payer OTHER, SELFPAY | LOC: RAD 12:10 | PROVIDERS: ATTENDING PHYSICIAN Physician Assistant | DX: R10.31 Right lower quadrant pain (principal) | CPT/HCPCS: 74177; Q9967 ==

== ENCOUNTER 2024-11-30 15:52 | Inpatient (IN) | payer OTHER, SELFPAY ==
[2024-11-30] VITALS (24 sets, daily range): BP systolic 88–118; BP diastolic 48–100; BMI 23.4; BMI 23.2
--- NOTE | 2024-11-30 11:37 | ED.GENMED ---
History of Present Illness
General
Chief Complaint: Breathing Problem
Time Seen by Provider: 11/30/24 11:37
History of Present Illness
History of Present Illness:
TIME OF INITIAL ENCOUNTER: 11:40 AM
HPI: The patient presents with onset of palpitations this morning. She has a history of atrial fibrillation. She normally does not sense the atrial fibrillation. She has been taking the Eliquis and did not miss any doses except did not take this
morning's dose of Eliquis yet. She was found to be in rapid A-fib with rates in the 170s to 210s upon arrival.
EXAM:
GENERAL: Well appearing in no distress
HEENT: Moist oral mucosa
CARDIOVASCULAR: No murmurs, tachycardic heart rate, irregular rhythm, No chest wall tenderness
PULMONARY: No respiratory distress, breath sounds are clear and equal
ABDOMEN: Soft with no peritoneal signs, no tenderness
NEUROLOGIC: Excellent strength all extremities, no coordination deficits
PSYCHIATRIC: Appropriate mental status, normal insight and judgement
EXTREMITIES: Nontender, no edema, moves all extremities equally
SKIN: No rash, no lesions
NUMBER AND COMPLEXITY OF PROBLEMS ADDRESSED AT THE ENCOUNTER
Pertinent past medical history: PUD with obstruction in the past status post GJ bypass in 2002, paroxysmal A-fib, flail mitral valve leaflet with bioprosthetic replacement in 2022
� Acute Exacerbation and/or Progression of Chronic Illness: This is an acute problem
� Differential Diagnosis includes: Rapid atrial fibrillation, electrolyte abnormality, thyroid disease, dehydration
AMOUNT AND/OR COMPLEXITY OF DATA TO BE REVIEWED AND ANALYZED
� I performed an independent evaluation of and my interpretation is:
EKG: A-fib, ventricular rate 178
CT:
X-rays: No consolidation on chest x-ray
Laboratory Studies: Chemistries unremarkable however BUN is high at 27, free T4 is normal
Other:
� Review of other/old records: The patient had bioprosthetic mitral valve replacement due to flail mitral valve leaflet in 2022
� Clinical information was obtained by an independent historian: Spoke to at bedside
� Prescriptions/Medications Considered but not given:
� Further testing considered but not performed:
RISK OF COMPLICATIONS AND/OR MORBIDITY OR MORTALITY OF PATIENT MANAGEMENT
� Social determinants of health affecting care: Lives at home spoke to white count 14.7, hemoglobin normal,
� Discussion with other providers:Discussed with Dr. Thacker, discussed with Dr. Dukes for admission
� Escalation of care including admission/observation vs risk of discharge considered: The patient presented with palpitations. Considered electrocardioversion. I also discussed with Dr. Thacker. The patient thinks that is
possible that she missed a dose of Eliquis in the past 2 to 3 weeks therefore may not be safe to cardiovert her urgently now. Her heart rate is improved while on Cardizem but her blood pressure dropped. She is responding to IV fluids. Overall she
feels better.
ANY OTHER UPDATES:
Past History
Past History
ED Past Medical History: CHF, HTN, Hypothyroidism and Other (Stomach ulcer)
ED Past Surgical History: Cardiac (mitral valve)
Social History
Tobacco: Non-smoker
Alcohol: None
Drug: None
Personal:
Living: with family
Phy Exam
Physical Exam
Physical Exam:
See HPI
Scores
Heart Failure Risk
Heart Failure Risk Score: Not Applicable
Course
Orders/Labs/Results
Orders:
Orders
11/30/24 11:23
Electrocardiogram (*1) Urgent
Reason for Study: Shortness of Breath
11/30/24 11:24
EKG- Treatment ONCE
11/30/24 11:44
Apixaban [Eliquis] 5 mg PO NOW STA
Diltiazem HCl [Cardizem] 10 mg IV NOW STA
Diltiazem HCl [Cardizem] 25 mg .ROUTE .[facility]
11/30/24 11:45
Complete Blood Count/With Diff Urgent
Comprehensive Metabolic Panel Urgent
Manual Differential Urgent
Troponin I Urgent
11/30/24 11:47
Free T4 Urgent
PT/INR [Prothrombin Time] Urgent
Is patient on Coumadin/Warfarin?: No
Comment: [email or web address]
PTT Urgent
TSH Reflex To Free T4 Urgent
11/30/24 12:00
Diltiazem 125 mg/125 ml Nss [Cardizem] 125 mg in 125 ml IV PER PROTOCOL
Initial dose in mg/hr, then titrate:: 5
Titrate to keep:: Heart rate 80-100 bpm
Titrate by mg/hr:: 5 mg/hr
Frequency of titrations (minutes):: 15
Maximum dose in mg/hr:: 15
11/30/24 12:06
0.9% Sodium Chloride 500 ml [Nss] 500 ml IV BOLUS
11/30/24 13:38
CR Chest Portable - 1 View Urgent
Comment:
Reason For Exam: hypoxia
Reason Study Needs to be Portable: Patient Unstable
11/30/24 14:27
Admit/Transfer Patient As Directed
Co-Sign Provider:
Level of Care: Inpatient admission
Assign to:: IVU
Physician / Group: Ernst, Maximiliano
Diagnosis: atrial fibrillation RVR
Reason for Hospitalization: atrial fibrillation RVR
Expected length of stay greater than two midnights?: Yes
ELOS- Estimated Length of Stay in days: 3
I certify the patient meets the requirements for IP care: Yes
11/30/24 14:28
PRN Pain Medication Management As Directed
May give lesser potent ordered pain med per pt: Yes
preference::
Protocol:: Medication orders for pain may be administered in a
manner that supports deferring to patient preference
when the pt is:
- Requesting an ordered lesser potent pain medication.
Least to most potent pain medications are defined
as: acetaminophen < NSAID < tramadol < opioids
(morphine, oxycodone, hydromorphone).
- Requesting a lesser dose of the same medication IF
ORDERED.
- Requesting a less intrusive route of administration
if both routes are prescribed by the provider (PO <
IV).
11/30/24 14:29
Code Status As Directed
Resuscitation Status: Full Code
Abnormal Lab Results
11/30/24 11/30/24
11:45 11:47
WBC 14.7 H 10^3/uL
(4.8-10.8)
Abs Neuts (Manual) 12.3 H 10^3/uL
(1.4-6.5)
Band Neutrophils 10 H %
(0-3)
Lymphocytes (Manual) 7 L %
(20-51)
PT 18.8 H Sec
(11.4-14.6)
APTT 38.5 H Sec
(23.4-35.0)
Carbon Dioxide 20 L mmol/L
(22-30)
BUN 27 H mg/dl
(7-17)
AST 40 H U/L
(14-36)
Total Protein 5.9 L g/dl
(6.3-8.2)
TSH (Reflex) 62.80 H uIU/ml
(0.47-4.68)
11/30/24 11:45
11/30/24 11:45
Vital Signs
Initial and Last Documented VS:
Initial Vital Signs
Pulse Resp BP Pulse Ox
75 18 112/88 54
11/30/24 11:20 11/30/24 11:20 11/30/24 11:20 11/30/24 11:20
Last Documented Vital Signs
Pulse Resp BP Pulse Ox
109 16 98/56 94
11/30/24 14:00 11/30/24 14:06 11/30/24 14:00 11/30/24 14:00
*Critical Care Note
Total Time (30-74mins, 75-104mins- exclusive of procedures): 60 minutes
comment:
The patient's heart rate was high as 210. Consider electrocardioversion. Blood pressure started to drop. However she feels better and is mentating well. She was placed on Cardizem bolus and drip and her vital signs were very closely monitored.
ED Attending Note
-
Portions of this chart may have been created with voice recognition software.� Occasional wrong word or��sound alike� substitutions may have occurred due to the inherent limitations of voice recognition software.
Discharge Plan
Departure
Patient Disposition: Admit
Date of Disposition: 11/30/24
Time of Disposition: 13:35
Presentation/result/management discussed w/ accepting MD/DO: Hospitalist
Patient with high blood pressure during this ER visit?: Yes
Discharge Problem:
Atrial fibrillation with RVR
Prescriptions:
No Action
levothyroxine 100 MCG tablet
100 mcg PO DAILY
Jardiance 10 mg Tablet
10 mg PO DAILY Qty: 30 3RF
cetirizine [Zyrtec] 10 mg Tablet
10 mg PO DAILYPRN PRN (Reason: seasonal allergy)
cholecalciferol (vitamin D3) [Vitamin D3] 50 mcg (2,000 unit) Tablet
3 unit PO DAILY
potassium chloride 20 mEq tablet,ER particles/crystals
20 meq PO Q48H@1900
metoprolol tartrate 25 mg tablet
25 mg PO DAILY@1200
pantoprazole 40 mg tablet,delayed release (DR/EC)
40 mg PO DAILY
loperamide 2 mg Tablet
2 mg PO TIDPRN PRN (Reason: diarrhea)
acetaminophen [Tylenol 8 Hour] 650 mg Tablet Extended Release
1,300 mg PO TIDPRN PRN (Reason: mild pain)
calcium carbonate [Calcium 500] 500 mg calcium (1,250 mg) Tablet
500 mg PO DAILY
diphenhydramine HCl [Benadryl] 25 mg Capsule
25 mg PO HSPRN PRN (Reason: allergies/sleep)
furosemide [Lasix] 20 mg Tablet
20 mg PO Q48H
simethicone [Gas-X] 80 mg Tablet,Chewable
80 mg PO TIDPRN PRN (Reason: gas pains)
Eliquis 5 mg Tablet
5 mg PO BID@1200,2200
Referrals:
Gordon Lara MD [Family Provider] -
Interventions
Interventions:
*Risk Screen - Suicide Last Done: 11/30/24 11:24
*General Assessment Last Done: 11/30/24 11:24
*Neglect/Abuse Screening Last Done: 11/30/24 11:24
*ED- Fall Risk Assessment Last Done: 11/30/24 11:48
*ED COVID-19 Vaccine History Last Done: 11/30/24 11:24
ED- Cardiac Assessment Last Done: 11/30/24 11:48
ED- Pulmonary Assessment Last Done: 11/30/24 11:48
Discharge Date and Time
Print Language: ARABIC
[2024-11-30] MEDS: CARDIZEM 10 MG IV (11:47)
[2024-11-30] MEDS: ELIQUIS 5 MG PO ×2 (11:50→21:04)
[2024-11-30] MEDS: CARDIZEM 125 IV ×2 (12:04→20:06)
[2024-11-30] MEDS: NSS 500 IV (12:07)
[2024-11-30 12:18] LABS: Hemoglobin 14.4 g/dL (12.0-16.0); Mean Corp Hgb Conc. 33.5 g/dL (33.0-37.0); Mean Corpuscular Hgb 30.7 pg (27.0-31.0); Mean Corpuscular Volume 91.7 fL (81.0-99.0); Mean Platelet Volume 10.3 fL (7.4-10.4); Platelet Count 241 10^3/uL (130-400); Red Blood Cell Count 4.69 10^6/uL (4.20-5.40); Red Cell Dist. Width 13.9 % (11.5-14.5); White Blood Cell Count 14.7 10^3/uL (4.8-10.8)
[2024-11-30 12:23] LABS: INR 1.55; PT 18.8 Sec (11.4-14.6)
[2024-11-30 12:24] LABS: APTT 38.5 Sec (23.4-35.0)
[2024-11-30 12:25] LABS: AST (SGOT) 40 U/L (14-36); Albumin 3.5 g/dl (3.5-5.0); Alkaline Phosphatase 89 U/L (38-126); Blood Urea Nitrogen 27 mg/dl (7-17); Calcium 9.2 mg/dl (8.4-10.2); Carbon Dioxide 20 mmol/L (22-30); Chloride 103 mmol/L (98-107); Estimated Creatinine Clearance 41 ml/min; Glucose 96 mg/dl (70-99); Potassium 3.6 mmol/L (3.5-5.1); Sodium 138 mmol/L (135-145); Total Bilirubin 0.8 mg/dl (0.2-1.3); Total Protein 5.9 g/dl (6.3-8.2); eGFR 59.12
[2024-11-30 12:33] LABS: Troponin I < 0.012 ng/ml
[2024-11-30 12:47] LABS: ALT (SGPT) 33 U/L (0-35)
[2024-11-30 13:04] LABS: Band Neutrophils 10 % (0-3)
[2024-11-30 13:05] LABS: Absolute Neutrophils -Man Diff 12.3 10^3/uL (1.4-6.5); Lymphocytes 7 % (20-51); Monocytes 9 % (2-9); Normal RBC Morphology Yes; Platelets Checked Yes; Segmented Neutrophils 74 % (42-75); Total Cells Counted 100; Toxic Granulation 1+
[2024-11-30 13:33] LABS: Free T4 0.89 ng/dl (0.78-2.19)
--- NOTE | 2024-11-30 13:49 | HPS.HSE ---
Addendum entered and electronically signed by Maximiliano Dukes MD 11/30/24 14:49:
I saw and examined the patient.
The PARKING ASSISTANT or PA's note was reviewed and I agree with the note.
Comment:
74F HX Prx AF on Eliquis pw SoB and palpitation. She received morning dode of Elquis by ER. However, she thinks it is possible that she missed a dose of Eliquis in past 2-3 weeks. Per ER, case DW Dr Thacker about CV but due to possible missed dosese
of Eliquis, not cardioverted.
VS:
AF with RVR 21O and HR coming down to 11o- 140s on dilatiazem gtt.
Hypotensive on Diltiazem gtt
ASSESSMENT & PLAN
Fast paroxysmal AF - improved rate control on Diltiazem gt but hypotensive '
Chr Eliquis and BB for rate control o chr eliquis
HX MVR
HX Chr HFrEF 2023 TTE : LVEF 40s
- IV NS 500 cc at ER
- c/ Eliquis
- c/w Diltiazem gtt
- Hold metoprolol to give room gpt BP while on Diltiazem gtt
- c/w Lasix 20mg q48H
- c/w Jardiance
- CBC card consulted
Chr Condition:
Hypothyroid on LT4
HX Chr HFrEF on lasix, KCL, BB and Jardiance
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
Code: Full
IVU
Original Note:
Family Physician
-
Family Physician: Gordon Lara
Chief Complaint
-
palpitations
History of Present Illness
Patient is a 74-year-old female with past medical history significant for hypothyroidism, essential hypertension, paroxysmal atrial fibrillation, and anemia who presented to [facility] ED for evaluation of palpitations. Patient reports that Saturday
afternoon she starting not feeling well, described as a little woozy and dry cough, that continued throughout yesterday. She reports not being able to sleep last night and this morning heart was racing with some lightheadedness so she decided to
come for evaluation. Patient denies any recent fever, chills, shortness of breath, chest pain, nausea, vomiting, constipation, diarrhea or urinary symptoms.
Medical History
Past Medical History
Past Medical History: Reports Other
Additional Past Medical History:
hypothyroidism
essential hypertension
paroxysmal atrial fibrillation
iron deficiency anemia
Mitral valve prolapse
Mitral chordae rupture
Duodenal Ulcer /w outlet obstruction surgery, needs PPI therapy indefinitely
Osteopenia by DEXA-evist x 5 yrs, HRT x5 yrs for premature menopause
DDD lumbosacral and cervical (Sees chiropractor regularly)
Echo: 55-60% EF, mod TR, PAP 15-20, MV mean 1, no MT (07/23/23)
Past Surgical History: Reports Other
Additional Past Surgical History:
surgery for duodenal ulcer with stricture
mitral valve replacement
tricuspid valve repair
Social History
Tobacco: Non-smoker
Alcohol: None
Drug: None
Personal:
Living: With Family
Family History
Family History: Other (Father: AAA; Sister: at 38 with Breast cancer )
Allergies / Home Medications
Allergies reflects when Allergies were last updated in [employer].
Home Medications with original date entered in [employer]
Allergy/Medication List:
Allergies
Allergy/AdvReac Type Severity Reaction Status Date / Time
No Known Allergies Allergy Unverified 03/14/24 17:00
Home Medications
levothyroxine 100 mcg tablet 100 mcg PO DAILY Thyroid 10/21/21
empagliflozin 10 mg tablet (Jardiance) 10 mg PO DAILY Heart Failure #30 tabs 07/28/23
cetirizine 10 mg tablet (Zyrtec) 10 mg PO DAILYPRN PRN seasonal allergy 11/13/23
cholecalciferol (vitamin D3) 50 mcg (2,000 unit) tablet (Vitamin D3) 3 unit PO DAILY Supplement 11/13/23
metoprolol tartrate 25 mg tablet 25 mg PO DAILY@1200 Heart disease/condition 03/14/24
potassium chloride 20 mEq tablet,extended release(part/cryst) 20 meq PO Q48H@1900 Electrolyte Repletion 03/14/24
acetaminophen 650 mg tablet,extended release (Tylenol 8 Hour) 1,300 mg PO TIDPRN PRN mild pain 11/30/24
apixaban 5 mg tablet (Eliquis) 5 mg PO BID@1200,2200 11/30/24
calcium carbonate 500 mg PO DAILY 11/30/24
diphenhydramine HCl 25 mg capsule (Benadryl) 25 mg PO HSPRN PRN allergies/sleep 11/30/24
furosemide 20 mg tablet (Lasix) 20 mg PO Q48H 11/30/24
loperamide 2 mg tablet 2 mg PO TIDPRN PRN diarrhea 11/30/24
pantoprazole 40 mg tablet,delayed release 40 mg PO DAILY GI prophylaxis 11/30/24
simethicone 80 mg chewable tablet 80 mg PO TIDPRN PRN gas pains 11/30/24
Review of Systems
-
History Source: Patient
Constitutional: Reports Sleep Disturbance
EENT: Reports No Symptoms
Respiratory: Reports Cough (dry cough)
Cardiac: Reports Palpitations
Abdomen/GI: Reports No Symptoms
: Reports No Symptoms
Musculoskeletal: Reports No Symptoms
Skin: Reports No Symptoms
Neurological: Reports No Symptoms
Endocrine: Reports No Symptoms
Hematologic/Lymphatic: Reports No Symptoms
Psych: Reports No Symptoms
Physical Exam
Vital Signs
Vital Signs
Pulse Resp BP Pulse Ox
102 38 93/70 93
11/30/24 13:42 11/30/24 13:42 11/30/24 13:42 11/30/24 13:42
Physical Exam
General: Well Developed, Well Nourished, No Apparent Distress, Comfortable and Conversant
HEENT: NormoCephalic, Moist mucous membranes, Atraumatic, Presho Conjunctivae, Nose Appears Normal and Ears Appear Normal
Respiratory: Clear
Cardiac: S1/S2, Irregular Rhythm and Tachycardia
GI: Soft, Non Tender, Non Distended and Normal Bowel Sounds; No Organomegaly
Rectal: Deferred by Provider
Genito-urinary: Deferred by me
Musculoskeletal: No Clubbing, No Cyanosis and No Edema
Skin: Warm and IV/Catheter Site
Neuro: Awake, Alert, AO x 3 and Nonfocal/grossly intact
Psych: Calm and Intact Judgment/Insight
Laboratory Results
-
11/30/24 11:45
11/30/24 11:45
Laboratory Results
PT 18.8 Sec (11.4-14.6) H 11/30/24 11:47
INR 1.55 11/30/24 11:47
APTT 38.5 Sec (23.4-35.0) H 11/30/24 11:47
Total Bilirubin 0.8 mg/dl (0.2-1.3) 11/30/24 11:45
AST 40 U/L (14-36) H 11/30/24 11:45
ALT 33 U/L (0-35) 11/30/24 11:45
Alkaline Phosphatase 89 U/L (38-126) 11/30/24 11:45
Troponin I < 0.012 ng/ml 11/30/24 11:45
Data Reviewed
-
Medical Tests (Nuc Med, Echo, EKG etc): Report Reviewed by me (EKG: Critical Test Result: High HR ATRIAL FIBRILLATION WITH RAPID VENTRICULAR RESPONSE ST and T WAVE ABNORMALITY, CONSIDER INFERIOR ISCHEMIA ST and T WAVE ABNORMALITY, CONSIDER
ANTEROLATERAL ISCHEMIA)
Lab Data: Labs Reviewed by me (WBC 14.7, BUN 27, Creat 1.0, eGFR 59.12)
Impression/Plan
-
IMPRESSION/PLAN:
#paroxysmal atrial fibrillation
EKG: Critical Test Result: High HR
ATRIAL FIBRILLATION WITH RAPID VENTRICULAR RESPONSE
ST and T WAVE ABNORMALITY, CONSIDER INFERIOR ISCHEMIA
ST and T WAVE ABNORMALITY, CONSIDER ANTEROLATERAL ISCHEMIA
- Admit to IVU
- Consult Cardiology
- Diltiazem gtt
- continue Eliquis
- hold metoprolol
#hypothyroidism
- TSH pending
- continue levothyroxine
#essential hypertension
- hold metoprolol
#iron deficiency anemia
hgb 14.4, Hct 43.0
- stable
- monitor H/H
#Mitral valve prolapse
#Mitral chordae rupture
s/p mitral valve replacement, tricuspid valve repair
- continue furosemide and Jardiance
#Duodenal Ulcer
s/p outlet obstruction surgery
- continue calcium carbonate, pantoprazole and PRN simethicone
Code status: full code
DVT Prophylaxis: Eliquis
[2024-11-30] MEDS: LASIX 20 MG PO (16:50)
--- NOTE | 2024-11-30 17:03 | PTCARENOTE ---
Rec'd pt from ED. Tele- Afib. Almam gtt infusing at 15 ml/hr. BP 105/61. Pt has no complaints at this time. Pt able to ambulate from stretcher to bed w/ steady gait. Oriented pt to room. Plan of care reviewed w/ pt and verbalizes understanding.
Currently in bed; call jamey w/in reach.
[2024-11-30] MEDS: KCL 20 MEQ PO (17:56)
[2024-11-30] MEDS: TYLENOL 650 MG PO (21:04)
[2024-12-01] VITALS (9 sets, daily range): BP systolic 103–145; BP diastolic 58–82; BMI 23.2; BMI 23.3
--- NOTE | 2024-12-01 03:47 | PTCARENOTE ---
Pt Afib on monitor with HR 90-110 at rest. pt had a few episodes when HR went up to 150 BPM but pt denies any symptoms or palpitation. Pt on Cardizem gtt. Pt independent in the room. Call concepcion in place
[2024-12-01] MEDS: SYNTHROID 100 MCG PO (04:29)
[2024-12-01 04:33] LABS: Blood Urea Nitrogen 21 mg/dl (7-17); Calcium 8.3 mg/dl (8.4-10.2); Carbon Dioxide 19 mmol/L (22-30); Chloride 106 mmol/L (98-107); Estimated Creatinine Clearance 51 ml/min; Glucose 78 mg/dl (70-99); HDL Cholesterol 22 mg/dl; LDL Cholesterol, Calculated 42 mg/dl; Magnesium 2.1 mg/dl (1.6-2.3); Potassium 3.5 mmol/L (3.5-5.1); Sodium 138 mmol/L (135-145); Total Cholesterol 83 mg/dl (50-199); Triglyceride 95 mg/dl (10-149); Very Low Density Lipoprotein 19 mg/dl (0-30); eGFR > 60.00
[2024-12-01] MEDS: CARDIZEM 125 IV (05:08)
--- NOTE | 2024-12-01 07:46 | W.PN.HOSP.TC ---
Today's Communication/Plan
-
-Follow cardio recc-TTE ordered
-Follow vitals and monitor telemetry
-Follow BMP, CBC, blood culture
Assessment / Plan
Assessment / Plan
ASSESSMENT & PLAN
#Paroxysmal AF with RVR
-Hx of Paroxysmal A Fib (On Eliquis and metoprolol 25 mg)
-Not cardioverted due a possibility missing a dose of Eliquis in last weeks after discussion with cardiology
-Cardiology was consulted and admitted to IVU --echo ordered
-Improved rate control on Diltiazem gt but hypotensive
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
-Hx of CHF (HFrEF 2023 TTE : LVEF 40s)
- IV NS 500 cc at ER
- Continue Eliquis
- c/w Diltiazem gtt
- Hold metoprolol to give room for Diltiazem gtt given BP on lower side
- c/w Lasix 20mg q48H
- c/w Jardiance
#Leucocytosis with bandemia with unclear source
-No fever, no chills, denies any sick contacts
-No dental procedures/no joint injection/ no procedures recently
-Reports dry cough for last 2 days-has also hx of allergies
-Cxr: unremarkable
-Echo (TTE) given history of MV repair -May need ANGEL for a differential diagnosis of endocarditis
-Blood culture ordered
#Hypokalemia
-c/w KCI 20 meq Q48 H/Follow BMP
#essential HTN
#PUD
-Hx of GI bleeding (PUD with ulcer resulting in obstruction s/p gastrojejunostomy bypass 2002)
-Hx of melena in 03/2024 underwent EGD (Two non-bleeding superficial ulcers with no stigmata of bleeding were found distal to the gastrojejunal anastomosis in the jejunum)
-Continue PPI
#Hypothyroidism
-Continue levothyroxine
#Abdominal pain due gas
-simethicone PRN
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
Code: Full
Anticipated Discharge: 24 - 48 hours
Subjective/Interval History
-
Date of Service: December 01, 2024
The patient denies dizziness, shortness of breath , chest pain, fever, chills.
Objective Data
-
Labs:
Laboratory Results
12/01/24
03:40
Sodium 138
Potassium 3.5
Chloride 106
Carbon Dioxide 19 L
BUN 21 H
Creatinine 0.8
Glucose 78
Calcium 8.3 L
Vital Signs:
Vital Signs
Temp Pulse Resp BP Pulse Ox
98.9 F 105 16 115/63 95
12/01/24 03:33 12/01/24 07:17 12/01/24 03:33 12/01/24 07:17 12/01/24 07:17
I&O
11/30/24 12/01/24 12/02/24
06:59 06:59 06:59
Intake Total 1060 / 1060
Output Total 725 / 725
Balance 335 / 335
Review of Systems
-
All other systems: Reviewed and negative
Physical Exam
-
General: Well Developed and Well Nourished
HEENT: Normocephalic and Atraumatic
Respiratory: Clear to Auscultation
Cardiac: Regular Rhythm, S1/S2 and Tachycardic
GI: Soft, Nontender and Nondistended
Musculoskeletal: No Clubbing, No Cyanosis and No Edema
Skin: Warm
Neuro: Awake, Alert, Oriented, AO x 3 and Nonfocal/Grossly Intact
Psych: Calm
[2024-12-01] MEDS: FARXIGA 10 MG PO (08:15)
[2024-12-01] MEDS: PROTONIX 40 MG PO (08:15)
[2024-12-01] MEDS: OSCAL CAL 500 500 MG PO (08:15)
--- NOTE | 2024-12-01 08:18 | CON.CAR ---
Consultation
Consultation Request
Date/Time Consultation Requested: 12/01/24
Date/Time Consultation Performed: 12/01/24
Requesting Provider:
Performing Provider: Dr Ram
Reason for Consultation: afib
Medical History
-
Chief Complaint: palpitations
History of Present Illness:
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
Gastrojejunostomy 20 years ago, hypertension, hypothyroidism who presented with palpitatoins, dry cough for 2 days. She also endorses poor appetite Saturday. She denies orthpbnea, pnd or le edema. She did miss a dose of Eliquis.
On arrival she had af with rvr, and started on dilt gtt. Now in sinus tachycardia with pvcs.
Past Medical History
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
Social History
Tobacco: Non-Smoker
Family History
Family History: Reviewed & Not Pertinent
Allergies / Home Medications
Allergy/AdvReac Type Severity Reaction Status Date / Time
No Known Allergies Allergy Unverified 03/14/24 17:00
�Medication �Instructions �Recorded �Confirmed �Type
levothyroxine 100 mcg tablet 100 mcg PO DAILY Thyroid 10/21/21 11/30/24 History
empagliflozin 10 mg tablet 10 mg PO DAILY Heart Failure #30 07/28/23 11/30/24 Rx
(Jardiance) tabs
cetirizine 10 mg tablet (Zyrtec) 10 mg PO DAILYPRN PRN seasonal 11/13/23 11/30/24 History
allergy
cholecalciferol (vitamin D3) 50 3 unit PO DAILY Supplement 11/13/23 11/30/24 History
mcg (2,000 unit) tablet (Vitamin
D3)
metoprolol tartrate 25 mg tablet 25 mg PO DAILY@1200 Heart 03/14/24 11/30/24 History
disease/condition
potassium chloride 20 mEq 20 meq PO Q48H@1900 Electrolyte 03/14/24 11/30/24 History
tablet,extended release(part/cryst) Repletion
acetaminophen 650 mg 1,300 mg PO TIDPRN PRN mild pain 11/30/24 11/30/24 History
tablet,extended release (Tylenol 8
Hour)
apixaban 5 mg tablet (Eliquis) 5 mg PO BID@1200,2200 11/30/24 11/30/24 History
calcium carbonate 500 mg PO DAILY 11/30/24 11/30/24 History
diphenhydramine HCl 25 mg capsule 25 mg PO HSPRN PRN allergies/sleep 11/30/24 11/30/24 History
(Benadryl)
furosemide 20 mg tablet (Lasix) 20 mg PO Q48H 11/30/24 11/30/24 History
loperamide 2 mg tablet 2 mg PO TIDPRN PRN diarrhea 11/30/24 11/30/24 History
pantoprazole 40 mg tablet,delayed 40 mg PO DAILY GI prophylaxis 11/30/24 11/30/24 History
release
simethicone 80 mg chewable tablet 80 mg PO TIDPRN PRN gas pains 11/30/24 11/30/24 History
Review of Systems
-
All other systems: Negative unless noted
Physical Exam
Vital Signs
Temp Pulse Resp BP Pulse Ox
98.9 F 105 16 115/63 95
12/01/24 03:33 12/01/24 07:17 12/01/24 03:33 12/01/24 07:17 12/01/24 07:17
Lab Results
11/30/24 11:45
12/01/24 03:40
Troponin I < 0.012 ng/ml 11/30/24 11:45
Physical Exam
General: Well Developed
HEENT: Normocephalic
Respiratory: Clear; Negative Wheezes, Crackles or Rhonchi
Cardiac: S1/S2 and Regular Rhythm; Negative Murmur, Rub or Peripheral Edema
GI: Non Tender and Non Distended
Neuro: AO x 3
Impression / Plan
-
74 y/o pt with history of MR--acute flaile P2 and CHF s/p MVR��31mm Mitris bio-prosthesis, Moderate TR s/p TV repair(28mm Tri Ad band)�,HTN, PSVT and PAF.��
PAF: initially RVR now Sinus Tachycardia
-will transition IV Diltiazem gtt to po metoprolol
-continue Eliquis
-update echo
SIRS:
-sinus tachycardia
-Bandemia
-unclear source, will check blood cultures given h/o MVReplacment and TR repair
-checking echo
MV replacement: updating echo
TV repair: updating echo
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
-not in CHF
Will follow, d/w Dr Talamantes.
Data Reviewed:
-
Echocardiogram 03/31/2024 shows normal LV cavity size and thickness with mildly reduced LVEF at 48.5% by Quezada's biplane. Abnormal paradoxical septal motion consistent with postoperative status. Well-seated number 31 mm mitral is bioprosthetic
mitral valve replacement with mean gradient 4 mmHg, status post #28 triad band tricuspid valve repair with trace regurgitation, aortic sclerosis without stenosis. Visually unchanged from 09/18/2023.
-
[facility] 07/22/2022 codominant circulation with no CAD. Moderate to severely elevated filling pressures severe pulmonary hypertension
Data Reviewed
-
EKG: Tracing Personally Visualized and interpreted (11/30/24 afiwth rvr at 178, NS ST wave abnormality)
Radiology: Image Personally Visualized and interpreted (no chf/consolidation)
--- NOTE | 2024-12-01 08:28 | W.PN.UPDATE ---
Update Note
Progress Note Update
I saw and evaluated the patient. I reviewed the resident�s note and agree with findings and plan as documented in the resident�s note.
Denies CP/SOB.
Gen: NAD, AAOx3.
Eyes: EOMI, PERRLA, no scleral icterus.
Neck: supple.
CV: tachy, reg rhythm with frequent premature beats, +S1/S2, no m/r/g.
Resp: CTAB, no rales, wheezes, or rhonchi.
Abd: +BS, soft, NT, ND
Skin: No rashes.
MSK: TTP is L thoracic paraspinal musculature
Neuro: CN 2-12 intact, non-focal.
Psych: Normal mood and affect.
Afib with RVR:
-Patient possibly missed a dose of Eliquis in the last 2 to 3 weeks and therefore no cardioversion in the ER
-converted to SR/ST
-stop cardizem gtt, resume BB
-cont Eliquis
-cards following, discussed with Dr. Ram
-check echo (start with TTE)
Leukocytosis with bandemia:
-pt reports fatigue, anorexia, dry cough
-CXR: Hypoaerated lungs without consolidation.
-top on differential is endocarditis (h/o MVR). Check BCxs. Start with TTE, may need ANGEL.
Other problems:
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
h/o SVT
Severe PUD resulting in Gastrojejunostomy 20 years ago: cont PPI
Essential hypertension: resume BB
Hypothyroidism: cont Levoxyl
FULL/Eliquis
Total time spent on today's encounter was 50 minutes which included time spent in counseling the patient/family regarding diagnosis and treatment plan as listed above, goals of care, and symptom management. Case was discussed with nursing staff,
specialists, and care coordinators/case management. All labs and imaging personally reviewed by me. Remainder the time spent in detailed review of previous records, lab data, imaging, and other medical provider documentation.
[2024-12-01] MEDS: KCL 40 MEQ PO (09:23)
[2024-12-01] MEDS: LOPRESSOR 25 MG PO ×3 (12:47→22:53)
[2024-12-01] MEDS: ELIQUIS 5 MG PO ×2 (12:48→22:54)
[2024-12-01 12:53] LABS: COVID-19 Antigen Negative (Negative)
--- NOTE | 2024-12-01 13:25 | CM ---
Chart reviewed. 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 Plan is for the patient to return home. CM to follow
[2024-12-01] MEDS: TYLENOL 650 MG PO (17:50)
--- NOTE | 2024-12-01 20:37 | PTCARENOTE ---
Received pt @ change of shift. AAOx3. VSS. Denies palpitations @ this time. Pt does not feel her rate increase with activity @ this time. Discussed plan of care for evening. Pt verbalizes understanding. Call concepcion within reach.
[2024-12-02] VITALS (28 sets, daily range): BP systolic 94–148; BP diastolic 52–89; BMI 23.3
[2024-12-02] MEDS: TYLENOL 650 MG PO ×4 (01:55→20:17)
[2024-12-02] MEDS: CARDIZEM 125 IV (01:59)
--- NOTE | 2024-12-02 02:19 | PTCARENOTE ---
Pt HR continued to alarm with an irregular beat. EKG ordered and completed-- pt in Afib RVR. Latrice Smalls, OB GYN PHYSICIAN ASSISTANT, ordered cardizem gtt restarted @ 5mL/hr titratable-- see OCT. Pt c/o constipation as well-- order placed for collace BID.
[2024-12-02 02:49] LABS: ALT (SGPT) 26 U/L (0-35); AST (SGOT) 34 U/L (14-36); Albumin 2.9 g/dl (3.5-5.0); Alkaline Phosphatase 118 U/L (38-126); Blood Urea Nitrogen 16 mg/dl (7-17); Calcium 8.6 mg/dl (8.4-10.2); Carbon Dioxide 16 mmol/L (22-30); Chloride 107 mmol/L (98-107); Estimated Creatinine Clearance 68 ml/min; Glucose 79 mg/dl (70-99); Potassium 3.7 mmol/L (3.5-5.1); Sodium 138 mmol/L (135-145); Total Bilirubin 0.7 mg/dl (0.2-1.3); Total Protein 5.2 g/dl (6.3-8.2); eGFR > 60.00
[2024-12-02 02:51] LABS: Hemoglobin 12.7 g/dL (12.0-16.0); Mean Corp Hgb Conc. 34.3 g/dL (33.0-37.0); Mean Corpuscular Hgb 30.8 pg (27.0-31.0); Mean Corpuscular Volume 89.8 fL (81.0-99.0); Mean Platelet Volume 9.8 fL (7.4-10.4); Platelet Count 238 10^3/uL (130-400); Red Blood Cell Count 4.12 10^6/uL (4.20-5.40); Red Cell Dist. Width 14.2 % (11.5-14.5); White Blood Cell Count 16.6 10^3/uL (4.8-10.8)
--- NOTE | 2024-12-02 03:17 | W.PN.UPDATE ---
Update Note
Progress Note Update
~ 1 am, patient's HR getting into the 150's, repeat EKG showed patient had converted back to Afib w/RVR. Restarted Cardizem gtt.
[2024-12-02] MEDS: LOPRESSOR 25 MG PO ×4 (05:53→23:23)
[2024-12-02] MEDS: SYNTHROID 100 MCG PO (05:54)
[2024-12-02 07:02] LABS: Absolute Neutrophils -Man Diff 14.2 10^3/uL (1.4-6.5); Band Neutrophils 14 % (0-3); Lymphocytes 5 % (20-51); Monocytes 9 % (2-9); Normal RBC Morphology Yes; Segmented Neutrophils 72 % (42-75); Total Cells Counted 100; Toxic Granulation 1+
[2024-12-02 07:03] LABS: Platelets Checked Yes
--- NOTE | 2024-12-02 07:46 | W.PN.HOSP.TC ---
Today's Communication/Plan
-
-Started on ceftriaxone and doxycycline
-Chest CT ordered
-Follow pneumococcal and Legionella urinary antigens
-Follow WBC and temperature curve
-Monitor telemetry
-Started on amiodarone loading
-continue metoprolol
Assessment / Plan
Assessment / Plan
ASSESSMENT & PLAN
#Paroxysmal AF with RVR
-Hx of Paroxysmal A Fib (On Eliquis and metoprolol 25 mg)
-Not cardioverted at ER after discussion with cardiology due a possibility missing a dose of Eliquis in last weeks
-Cardiology on board
-Converted to SR/ST with Cardizem gtt at admission and continued with Cardizem gtt- but became hypotensive The patient retuned to Afib following trail of dc of diltiazem gtt on 12/02 am and continued on Cardizem again -cardio switched Cardizem gtt
to amiodarone on 12/02 morning
-Continue metoprolol for now while loading amio
-Continue Eliquis
-Echo 12/01: Normal biventricular size and systolic function without regional wall motion abnormality. LVEF 55-60%. #31 mm Mitris bioprosthesis mitral valve replacement with mean gradient of 5
mmHg. No mitral regurgitation. #28 Tri Ad band tricuspid valve repair with mean gradient of 2 mmHg. Trace tricuspid regurgitation. Compared to prior echocardiogram in March 2024, LVEF has improved from 48% to 55-60%. Echocardiogram is
otherwise unchanged.
#Leucocytosis with bandemia possibly secondary to pneumonia
-ID on board -started on ceftriaxone and doxycycline in the treatment of a possible CAP
-No fever, no chills, no sick contacts
-Cxr: unremarkable/ covid neg/flu ne
-Echo: not remarkable for IE
-Blood culture: pending
-Follow pneumococcal and Legionella urinary antigens
-Chest CT ordered
#Hypokalemia
-K 3.7 on 12/02
-c/w KCI 20 meq Q48 H/Follow BMP
#Hx of CHF (HFrEF 2023 TTE : LVEF 40s)
- c/w Lasix 20mg q48H
- c/w Jardiance
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
#essential HTN
#PUD
-Hx of GI bleeding (PUD with ulcer resulting in obstruction s/p gastrojejunostomy bypass 2002)
-Hx of melena in 03/2024 underwent EGD (Two non-bleeding superficial ulcers with no stigmata of bleeding were found distal to the gastrojejunal anastomosis in the jejunum)
-Continue PPI
#Hypothyroidism
-Continue levothyroxine
#Abdominal pain due gas
-simethicone PRN
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
Code: Full
Anticipated Discharge: 24 - 48 hours
Subjective/Interval History
-
Date of Service: December 02, 2024
Patient reported having another episode of A-fib which was observed on monitor last night. She denies any palpitations, chest pain or shortness of breath at that time.
Objective Data
-
Labs:
Laboratory Results
12/02/24
02:13
WBC 16.6 H
Hgb 12.7
Hct 37.0
Plt Count 238
Sodium 138
Potassium 3.7
Chloride 107
Carbon Dioxide 16 L
BUN 16
Creatinine 0.6
Glucose 79
Calcium 8.6
Total Bilirubin 0.7
AST 34
ALT 26
Alkaline Phosphatase 118
Vital Signs:
Vital Signs
Temp Pulse Resp BP Pulse Ox
97.8 F 109 20 112/74 90
12/02/24 07:36 12/02/24 05:53 12/02/24 07:36 12/02/24 05:53 04/30/25 07:36
I&O
12/01/24 12/02/24 12/03/24
06:59 06:59 06:59
Intake Total 1060 / 1060 480 / 480
Output Total 725 / 725 1275 / 1275
Balance 335 / 335 -795 / -795
Review of Systems
-
History Source: Patient
Constitutional: Reports No Symptoms
EENT: Reports No Symptoms Reported
Respiratory: Reports Cough (Reports dry cough )
Cardiac: Reports No Symptoms
Abdomen/GI: Reports No Symptoms
Genitourinary: Reports No Symptoms
Musculoskeletal: Reports No Symptoms
Skin: Reports No Symptoms
Neuro: Reports No Symptoms
Endocrine: Reports No Symptoms
Physical Exam
-
General: Well Developed, Well Nourished and No Apparent Distress
HEENT: Normocephalic and Atraumatic
Respiratory: Clear to Auscultation
Cardiac: S1/S2, Irregular Rhythm and Tachycardic
GI: Soft, Nontender and Nondistended
Musculoskeletal: No Clubbing, No Cyanosis and No Edema
Skin: Warm
Neuro: Awake, Alert, Oriented and AO x 3
Psych: Calm
[2024-12-02] MEDS: OSCAL CAL 500 500 MG PO (08:13)
[2024-12-02] MEDS: LASIX 20 MG PO (08:13)
[2024-12-02] MEDS: PROTONIX 40 MG PO (08:13)
[2024-12-02] MEDS: FARXIGA 10 MG PO (08:13)
[2024-12-02] MEDS: COLACE 100 MG PO ×2 (08:13→20:17)
--- NOTE | 2024-12-02 08:56 | W.PN.CD ---
Today's Communication / Plan
-
Stop IV dilt gtt
Start IV amiodarone-continue intensive monitoring
repeat bld cx
consider ct chest to evaluate cough and bandemia
Impression / Plan
-
74 y/o pt with history of MR--acute flaile P2 and CHF s/p MVR��31mm Mitris bio-prosthesis, Moderate TR s/p TV repair(28mm Tri Ad band)�,HTN, PSVT and PAF.��
PAF: initially RVR now Sinus Tachycardia
-recurrent episode of rvr overnight, dilt gtt started
-felt unwell
-given QTC will start IV amiodarone gtt and stop dilt
-continue metoprolol for now while loading
SIRS:
-sinus tachycardia
-Bandemia, continues to rise
-unclear source, will check another set of blood cultures given h/o MVReplacment and TR repair
-first set NGTD
-echo without concern
-Consider CT chest given only complaint is cough
MV replacement:no abnormal flow
TV repair: no abnormal flow
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
-not in CHF
-EF normalized
Will follow, d/w Dr Talamantes.
Subjective;
no cp or sob, no palpitations, with rvr overnight, felt 'awful' in general. Still only with a dry cough.
Data Reviewed:
-
TTE 12/02/24 CONCLUSIONS
Normal biventricular size and systolic function without regional wall motion
abnormality. LVEF 55-60%.
#31 mm Mitris bioprosthesis mitral valve replacement with mean gradient of 5
mmHg. No mitral regurgitation.
#28 Tri Ad band tricuspid valve repair with mean gradient of 2 mmHg. Trace
tricuspid regurgitation.
Compared to prior echocardiogram in March 2024, LVEF has improved from 48% to
55-60%. Echocardiogram is otherwise unchanged.
-
Echocardiogram 03/31/2024 shows normal LV cavity size and thickness with mildly reduced LVEF at 48.5% by Quezada's biplane. Abnormal paradoxical septal motion consistent with postoperative status. Well-seated number 31 mm mitral is bioprosthetic
mitral valve replacement with mean gradient 4 mmHg, status post #28 triad band tricuspid valve repair with trace regurgitation, aortic sclerosis without stenosis. Visually unchanged from 09/18/2023.
-
[facility] 07/22/2022 codominant circulation with no CAD. Moderate to severely elevated filling pressures severe pulmonary hypertension
Physical Exam
Vital Signs/Labs
Vital Signs
Temp Pulse Resp BP Pulse Ox
97.8 F 98 20 114/61 88
12/02/24 07:36 12/02/24 08:45 12/02/24 07:36 12/02/24 07:36 12/02/24 07:36
12/01/24 12/02/24 12/03/24
06:59 06:59 06:59
Actual Weight 131 lb 9.855 oz 131 lb 6.328 oz
12/02/24 02:13
12/02/24 02:13
PT 18.8 Sec (11.4-14.6) H 11/30/24 11:47
INR 1.55 11/30/24 11:47
APTT 38.5 Sec (23.4-35.0) H 11/30/24 11:47
Magnesium 2.1 mg/dl (1.6-2.3) 12/01/24 03:40
Triglycerides 95 mg/dl (10-149) 12/01/24 03:40
LDL Cholesterol, Calc 42 mg/dl 12/01/24 03:40
VLDL Cholesterol, Calc 19 mg/dl (0-30) 12/01/24 03:40
HDL Cholesterol 22 mg/dl 12/01/24 03:40
Free T4 0.89 ng/dl (0.78-2.19) 11/30/24 11:47
LAB Results
11/30/24
11:45
Troponin I < 0.012
Physical Exam
Constitutional: No acute distress
Cardiovascular: Rhythm & rate is regular, Pedal edema is absent, JVD pressure is normal, Systolic murmur absent, Diastolic murmur absent and Rhythm/rate is irregular
Respiratory: Respiratory effort normal, Lungs clear to auscul., Wheeze Absent, Crackles Absent and Rhonchi Absent
Neuro/Psych: AO x 3
Data Reviewed
-
Date of Service: December 02, 2024
Medical Decision Making: Review of Case with other Provider (Dr Talamantes and resident, repeat bld cx before empiric abx, starting iv amiodarone stopping dilt gtt)
--- NOTE | 2024-12-02 09:19 | W.PN.UPDATE ---
Update Note
Progress Note Update
I saw and evaluated the patient. I reviewed the resident�s note and agree with findings and plan as documented in the resident�s note.
Denies CP/SOB. O/N pt with afib with RVR which made her feel fatigued.
Gen: NAD, AAOx3.
Eyes: EOMI, PERRLA, no scleral icterus.
Neck: supple.
CV: irreg/irreg +S1/S2, no m/r/g.
Resp: CTAB anteriorly, no rales, wheezes, or rhonchi.
Abd: +BS, soft, NT, ND
Skin: No rashes.
Neuro: remains CN 2-12 intact, non-focal.
Psych: Normal mood and affect.
Echo: Normal biventricular size and systolic function without regional wall motion
abnormality. LVEF 55-60%.
#31 mm Mitris bioprosthesis mitral valve replacement with mean gradient of 5
mmHg. No mitral regurgitation.
#28 Tri Ad band tricuspid valve repair with mean gradient of 2 mmHg. Trace
tricuspid regurgitation.
Compared to prior echocardiogram in March 2024, LVEF has improved from 48% to
55-60%. Echocardiogram is otherwise unchanged.
Afib with RVR:
-Patient possibly missed a dose of Eliquis in the last 2 to 3 weeks and therefore no cardioversion in the ER
-initially was on cardizem gtt. She converted to SR/ST and cardizem gtt was stopped.
-12/02/24AM pt converted back to afib with RVR. BP dropping. Stop cardizem gtt and start Amio gtt.
-cont Eliquis
-cards following, discussed with Dr. Ram
-echo above
Leukocytosis with bandemia:
-pt reports fatigue, anorexia, dry cough
-CXR: Hypoaerated lungs without consolidation.
-follow initial BCxs, repeat BCxs today
-start Vanco/Zosyn
-c/s ID
-CT chest
Other problems:
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
h/o SVT
Severe PUD resulting in Gastrojejunostomy 20 years ago: cont PPI
Essential hypertension: resume BB
Hypothyroidism: cont Levoxyl
FULL/Eliquis
Total time spent on today's encounter was 51 minutes which included time spent in counseling the patient/family regarding diagnosis and treatment plan as listed above, goals of care, and symptom management. Case was discussed with nursing staff,
specialists, and care coordinators/case management. All labs and imaging personally reviewed by me. Remainder the time spent in detailed review of previous records, lab data, imaging, and other medical provider documentation.
--- NOTE | 2024-12-02 10:34 | CON.ID ---
Consultation
-
Date/Time Consultation Requested: 12/02/2024 0902
Date/Time Consultation Performed: 12/02/2024 0953
Requesting Provider: Dr. Talamantes
Performing Provider: Dr. Soto
Reason for Consultation: Leukocytosis
Chief Complaint / Past History
History of Present Illness
Lana Ambrocio is a 74-year-old female being evaluated the request of Dr. Talamantes regarding leukocytosis. History is obtained from chart review, along with patient interview.
The patient has a significant past medical history of paroxysmal atrial fibrillation maintained on Eliquis and reports she was in her usual state of health until this past weekend. She notes that approximately 5 days ago she did not feel well and
had several episodes of diarrhea which were self-limited. The next day she felt somewhat improved but 3 days ago she developed increased fatigue. 2 days ago she developed significant palpitations and presented to the hospital for further
evaluation where she was found to have A-fib with RVR in the . She was started on Cardizem drip, with improved rate control. During this period of time she denies any recent fevers or chills. She admits to a dry cough, without sputum
production. She denies any chest pain. She denies any abdominal pain. There have been no further episodes of diarrhea. She denies any dysuria. She admits that approximately 1 month ago she had some self-limited right lower quadrant discomfort,
and CT imaging failed to reveal any issues.
Past History
Additional Past Medical History:
P A-fib (on Eliquis)
HFrEF
Hypothyroidism
HTN
Hx MV prolapse
Additional Past Surgical History:
MVR (bioprosthetic; 2022)
Tricuspid repair (2022)
Duodenal surgery for ulcer disease
Allergy History:
No Known Allergies Allergy (Unverified 03/14/24 17:00)
Medications Reviewed: Yes
Current Antibiotics:
Vancomycin (not given yet)
Zosyn (not given yet)
Social History
Tobacco: Non-Smoker
Alcohol: None
Drug: None
Personal:
Living: With Family
Employment: Employed
Family History
Family History: Not Pertinent
Review of Systems
Vital Signs
Temp Pulse Resp BP Pulse Ox
97.8 F 98 20 114/61 88
12/02/24 07:36 12/02/24 08:45 12/02/24 07:36 12/02/24 07:36 12/02/24 07:36
Physical Exam
Physical Exam
Constitutional: No Acute Distress, Comfortable and Non-toxic
Eyes: No Conjunctival Hemorrhage and Sclera Anicteric
Oral: No Thrush and No Ulcers
Cardiovascular: Irregular Rate, S1/S2 and Murmur; Negative S3/S4
Pulmonary: Clear; Negative Wheezes, Rales or Rhonchi
Gastrointestinal: Soft, Non Tender, Non Distended and Normal Bowel Sounds
Extremities: Negative Edema, Cyanosis or Erythema
Skin: Warm and Dry; Negative Rash or Jaundice
Neurological: Awake and Alert
Psychological: Calm
.
Lab / Diagnostic Study Results
12/02/24 02:13
12/02/24 02:13
Total Counted 100 12/02/24 02:13
Abs Neuts (Manual) 14.2 10^3/uL (1.4-6.5) H 12/02/24 02:13
Segmented Neutrophils 72 % (42-75) 12/02/24 02:13
Band Neutrophils 14 % (0-3) H 12/02/24 02:13
Lymphocytes (Manual) 5 % (20-51) L 12/02/24 02:13
PT 18.8 Sec (11.4-14.6) H 11/30/24 11:47
INR 1.55 11/30/24 11:47
Microbiology Results
Micro:
12/01/24 09:40 Blood Culture - Preliminary
Blood/Venous No Growth in 24 hours- Final report to follow
12/01/24 12:10 Influenza Types A & B ([facility]) - Final
Nasal Swab Negative for Influenza A & B, NAAT
Negative results must be combined with clinical observations
and patient history.
Nucleic Acid Amplification test (NAAT)performed on the
[employer] platform.
12/01/24 10:29 Blood Culture - Pending
Blood/Venous
Imaging:
12/02/24 CT chest: Official report pending, but right lower lobe dense consolidation noted on personal review.
11/30/2024 CXR (portable): Mild elevation of the right hemidiaphragm compared with left. Hazy opacity over the right lower lung. No dense airspace consolidation noted. No effusion. No pneumothorax. Please see full dictation for additional detail.
Assessment / Plan
Leukocytosis
Right lower lobe pneumonia
Paroxysmal A-fib with RVR
HFrEF
Hypothyroidism
HTN
Hx MVR with tricuspid repair
Recommendations:
Discontinue further vancomycin and Zosyn.
Check pneumococcal and Legionella urinary antigens.
Blood cultures have been ordered..
Will begin ceftriaxone and doxycycline in the treatment of CAP
Follow white count and temperature curve.
[2024-12-02] MEDS: CORDARONE 103 MG IV (10:43)
[2024-12-02] MEDS: CORDARONE 518 MG IV (11:22)
--- NOTE | 2024-12-02 11:54 | CM ---
Chart reviewed. Patient is independent of ADLS, still works, lives with her in a [address], [place], [place] [address]. Plan is for the patient to return home. CM to follow
[2024-12-02] MEDS: VIBRAMYCIN 100 MG PO ×2 (12:34→20:17)
[2024-12-02] MEDS: ROCEPHIN 1000 MG IV (12:34)
[2024-12-02] MEDS: ELIQUIS 5 MG PO ×2 (12:34→23:23)
[2024-12-02] MEDS: STERILE WATER FOR INJECTION 10 ML IV (12:34)
[2024-12-02] MEDS: REGLAN 10 MG PO (15:35)
[2024-12-02 16:43] LABS: B.E. -9.1 mmol/L; O2 Saturation % 93.1 % (94-98); PCO2 27 mmHg (32-35); PO2 64 mmHg (83-108); pH 7.35 (7.35-7.45)
--- NOTE | 2024-12-02 16:44 | CON.PUL ---
Consultation
Consultation Request
Date/Time Consultation Requested: 12/02/2024 - 1617
Date/Time Consultation Performed: 12/02/2024 - 1624
Requesting Provider: Dr. Meléndez
Performing Provider: Dr. Mccarty
Reason for Consultation: Hypoxia/Pneumonia
Medical History
-
Chief Complaint: SOB + palpitations
History of Present Illness:
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
valve replacement + TV repair (07/2023), and lumbosacral + cervical DDD who presented with SOB and palpitations on 11/30/2024. She started to feel unwell this past Saturday (11/28), with nausea and a dry cough which continued. On the morning prior
to arrival, her heart was racing and she felt lightheaded. She was found to be in rapid A-fib with heart rate in the 160�170s, initial BP 112/88 which dropped into the 90s/60s, and she was saturating 92% on 2 L/min. She was afebrile to 98.8 �F.
Initial labs showed leukocytosis to 14.7, 10% bands, with a negative troponin of <0.012, elevated TSH at 62.8 and free T4 WNL at 0.89. COVID-19 antigen was negative. Blood cultures were collected and flu swab was negative. Initial CXR showed
mildly elevated right hemidiaphragm with faint opacification of the right base. She initially was admitted to the IVU for A-fib with RVR. Cardiology and ID were both consulted. She then converted to sinus tachycardia on 12/01. On 12/02, her
Streptococcus pneumonia antigen returned positive, and CT chest was recommended which showed a posterior right upper lobe pneumonia and severe bilateral lobe pneumonia. Also on 12/02, she converted back into rapid A-fib with HR in 150s and Cardizem
drip was resumed however this caused hypotension. Amiodarone drip was then started per cardiology. CXR was obtained showing persistent pneumonia with suspected worsening right lower lobe opacification. Patient now being transferred to the IMU for
further care and Pulmonary services consulted for additional management/recommendations.
When I saw the pt she was on midflow NC at 6L/min saturating 90% with HR 137. She has a cough and is able to bring up her phlegm without an issue. She denies chest pain, JOSEPH, abd pain, N/V/f/c.
PMHx: Paroxysmal A-fib on Eliquis, hypertension, osteopenia, hypothyroidism, duodenal ulcer with outlet obstruction/stricture s/p gastrojejunostomy bypass (2002), lumbosacral + cervical DDD
PSHx: , gastrojejunostomy bypass (2002), emergent mitral valve replacement with Mitris bioprosthesis, TV repair with Tri Ad band (07/[address] Luke)
Past Medical History
Past Medical History: Other (Above as per HPI)
Past Surgical History: Other (Above as per HPI)
Social History
Tobacco: Non-smoker
Alcohol: None
Drug: None
Personal:
Living: With Family
Family History
Family History: Cancer (Sister: Breast cancer), Hypertension (Father) and Other (Father: of thoracic aortic aneurysm; mother: of apparent sepsis; Sister: Thyroid disease)
Allergies / Home Medications
Allergies
Allergy/AdvReac Type Severity Reaction Status Date / Time
No Known Allergies Allergy Unverified 03/14/24 17:00
Home Medications
�Medication �Instructions �Recorded �Confirmed �Last Taken �Type
levothyroxine 100 mcg tablet 100 mcg PO DAILY Thyroid 10/21/21 11/30/24 11/29/24 History
empagliflozin 10 mg tablet 10 mg PO DAILY Heart Failure #30 07/28/23 11/30/24 11/30/24 08:00 Rx
(Jardiance) tabs
cetirizine 10 mg tablet (Zyrtec) 10 mg PO DAILYPRN PRN seasonal 11/13/23 11/30/24 03/13/24 History
allergy
cholecalciferol (vitamin D3) 50 3 unit PO DAILY Supplement 11/13/23 11/30/24 11/29/24 13:00 History
mcg (2,000 unit) tablet (Vitamin
D3)
metoprolol tartrate 25 mg tablet 25 mg PO DAILY@1200 Heart 03/14/24 11/30/24 11/29/24 13:00 History
disease/condition
potassium chloride 20 mEq 20 meq PO Q48H@1900 Electrolyte 03/14/24 11/30/24 11/29/24 19:00 History
tablet,extended release(part/cryst) Repletion
acetaminophen 650 mg 1,300 mg PO TIDPRN PRN mild pain 11/30/24 11/30/24 11/29/24 History
tablet,extended release (Tylenol 8
Hour)
apixaban 5 mg tablet (Eliquis) 5 mg PO BID@1200,2200 11/30/24 11/30/24 11/30/24 History
calcium carbonate 500 mg PO DAILY 11/30/24 11/30/24 11/29/24 13:00 History
diphenhydramine HCl 25 mg capsule 25 mg PO HSPRN PRN allergies/sleep 11/30/24 11/30/24 Unknown History
(Benadryl)
furosemide 20 mg tablet (Lasix) 20 mg PO Q48H 11/30/24 11/30/24 11/27/24 History
loperamide 2 mg tablet 2 mg PO TIDPRN PRN diarrhea 11/30/24 11/30/24 11/27/24 History
pantoprazole 40 mg tablet,delayed 40 mg PO DAILY GI prophylaxis 11/30/24 11/30/24 11/29/24 08:00 History
release
simethicone 80 mg chewable tablet 80 mg PO TIDPRN PRN gas pains 11/30/24 11/30/24 Unknown History
Review of Systems
-
History Source: Patient
All other systems: Negative unless noted
Vitals / Labs / Diagnostic Testing
Vital Signs
Temp Pulse Resp BP Pulse Ox
97.3 F 99 20 121/87 89
12/02/24 15:48 12/02/24 14:15 12/02/24 10:48 12/02/24 14:07 12/02/24 10:48
Lab Data
12/02/24 02:13
12/02/24 02:13
Microbiology
12/02/24 11:36 Urine Legionella Urinary Antigen - Final
Negative for Legionella pneumophila Serogroup 1 antigen.
A negative result does not rule out the possiblity of
Legionella infection due to other serogroups or species of
Legionella. Clinical correlation is recommended.
12/02/24 11:36 Urine Streptococcus pneumoniae Antigen (M - Final
Streptococcus pneumoniae
12/01/24 10:29 Blood/Venous Blood Culture - Preliminary
No Growth in 24 hours- Final report to follow
12/01/24 09:40 Blood/Venous Blood Culture - Preliminary
No Growth in 24 hours- Final report to follow
12/01/24 12:10 Nasal Swab Influenza Types A & B ([facility]) - Final
Negative for Influenza A & B, NAAT
Negative results must be combined with clinical observations
and patient history.
Nucleic Acid Amplification test (NAAT)performed on the
[employer] platform.
Diagnostic Testing:
Physical Exam
-
HEENT: Normocephalic and Anicteric
Cardiovascular: Irregular Rhythm (irregularly irregular) and Peripheral Edema (negative)
Respiratory: Wheeze (negative), Rales (right hemithorax), Rhonchi (right base) and Accessory Resp Muscle Use (mild)
GI: Soft, Non Distended, Non Tender and Normal Bowel Sounds
Neurology: AO x 3 and Tremors (negative)
Skin: Warm and Dry
General: Respiratory Distress (negative), Comfortable, Fever (negative) and Chills (negative)
Assessment
-
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
emergent mitral valve replacement + TV repair (07/2023), and lumbosacral + cervical DDD who presented with SOB and palpitations on 11/30/2024. She started to feel unwell this past Saturday (11/28), with nausea and a dry cough which continued. On the
morning prior to arrival, her heart was racing and she felt lightheaded. She was found to be in rapid A-fib with heart rate in the 160�170s, initial BP 112/88 which dropped into the 90s/60s, and she was saturating 92% on 2 L/min. She was afebrile
to 98.8 �F. Initial labs showed leukocytosis to 14.7, 10% bands, with a negative troponin of <0.012, elevated TSH at 62.8 and free T4 WNL at 0.89. COVID-19 antigen was negative. Blood cultures were collected and flu swab was negative. Initial
CXR showed mildly elevated right hemidiaphragm with faint opacification of the right base. She initially was admitted to the IVU for A-fib with RVR. Cardiology and ID were both consulted. She then converted to sinus tachycardia on 12/01. On 12/02,
her Streptococcus pneumonia antigen returned positive, and CT chest was recommended which showed a posterior right upper lobe pneumonia and severe bilateral lobe pneumonia. Also on 12/02, she converted back into rapid A-fib with HR in 150s and
Cardizem drip was resumed however this caused hypotension. Amiodarone drip was then started per cardiology. CXR was obtained showing persistent pneumonia with suspected worsening right lower lobe opacification. Patient now being transferred to
the IMU for further care and Pulmonary services consulted for additional management/recommendations.
Chronic conditions REFUSE COLLECTOR: Paroxysmal A-fib on Eliquis, hypertension, osteopenia, hypothyroidism, duodenal ulcer with outlet obstruction/stricture s/p gastrojejunostomy bypass (2002), lumbosacral + cervical DDD
Impression:
#CAP involving posterior right upper lobe + right lower lobe likely due to Streptococcus pneumoniae given positive S. pneumoniae urine antigen
#Leukocytosis with bandemia due to above with sepsis without shock
#A-fib with RVR (has history of A-fib, on Eliquis at home)
#Metabolic acidosis with appropriate respiratory compensation
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
#Moderate TR s/p TV repair
#PUD
#History of hypertension
#Subclinical hypothyroidism with TSH 62.8 and free T4 0.89
Plan:
- Patient reverted back to rapid A-fib today and Cardizem drip was started, which was then switched to amiodarone gtt per cardiology due to hypotension
- CT chest obtained this morning shows a posterior right upper lobe and severe right lower lobe consolidation consistent with pneumonia with a small parapneumonic right-sided effusion; also nonspecific mediastinal lymphadenopathy, likely reactive
at this point
- Patient became increasingly hypoxic this afternoon. Stat CXR shows similar location of right-sided pneumonia, possibly increased opacification in the right base
- Continue with supplemental oxygen and maintain SpO2 >90-94%, she may benefit from high flow nasal cannula given its increased PEEP; for now, raise midflow NC flow rate
- If WOB increases, then would start BiPAP
- Low threshold to transfer to ICU for intubation if she continues to clinically deteriorate
- Continue with antibiotics as per ID, currently on ceftriaxone + doxycycline
- Blood gas obtained showing metabolic acidosis with appropriate respiratory compensation and hypoxia with increased A-a gradient
- Suspect that her acidosis is due to lactate
- Continue aspiration precautions
- prn nebulized bronchodilators - not currently bronchospastic
- Continue heart rate control with amiodarone gtt, goal HR<110
- Her TSH was highly elevated to 62.8 on admission, however free T4 was WNL
- Given how elevated her TSH was, would repeat TFTs in 24-48 hrs hopefully once she stabilizes. Would be careful increasing dose of LT4 now as this could worsen her rapid A fib
- Repeat BMP now and check lactate
- Maintain MAP>65
- Replete electrolytes with K>4, Mg>2
- Maintain euglycemia with goal BG 140-180
- Trend H/H and transfuse if needed to keep Hb>7g/dL; keep plt>20k, unless there is concern for bleeding then keep plt>50k
- DVT ppx: Eliquis
Pulmonary service will continue to follow along.
Data:
CT Chest with IV contrast 12/02/2024:
Moderate right upper lobe and severe right lower lobe consolidation probably pneumonia. Clinical and laboratory correlation recommended.
Small right pleural effusion.
Developing mild left lower lobe pneumonia versus a pulmonary nodule. Continued surveillance recommended. Repeat chest CT exam in approximately 2 weeks following treatment for pneumonia is recommended.
Mild right lower lobe atelectasis versus scarring
Total time spent today was 79 minutes for this encounter. Time includes reviewing laboratory test/imaging results, reviewing pertinent medical records, obtaining and reviewing medical history, performing an appropriate exam, ordering medications,
tests and procedures. Time also includes documentation of this encounter, coordinating patient care and communicating with other healthcare professionals. Total time does not include separately billed tests performed on this date of service.
[2024-12-02 16:47] LABS: HCO3 14.9 mmol/L (21-28)
--- NOTE | 2024-12-02 17:04 | W.PN.UPDATE ---
Update Note
Progress Note Update
This afternoon around 3.45 pm, we were informed that the patient has been experiencing shortness of breath and saturating 85% on 2L. Her blood pressure was measured to 139/74 at that time. She was ordered a stat chest Xray and ABG. Her supplemental
oxygen was increased. She was consulted to portfolio accountant and upgraded to IMU for a close follow up and management.
--- NOTE | 2024-12-02 17:30 | PTCARENOTE ---
Received patient from IVU in bed. Patient AAOX3 pleasant. Amiodarone drip infusing 0.5mg 16.7mls/hr via right wrist 22G INT. SR with PAC's and PVC's. VS stable. Oriented patient to room. Call concepcion in reach. Will monitor.
--- NOTE | 2024-12-02 17:41 | PTCARENOTE ---
At approximately 1530, pt was noted to be tachypneic, pulse ox on 2L 85%. Lungs coarse with crackles at right base. Dr. Talamantes made aware--CXR ordered and obtained. Resp in to place pt on midflow oxygen, currently on 6L, pulse ox 92%. ABGs
obtained, results to Dr. Meléndez. Pt transferred to IMU, report given to LAYA Milner.
[2024-12-02 18:07] LABS: Lactic Acid 1.5 mmol/L (0.7-2.0)
[2024-12-02] MEDS: KCL 20 MEQ PO (18:10)
[2024-12-02 18:11] LABS: Blood Urea Nitrogen 18 mg/dl (7-17); Carbon Dioxide 15 mmol/L (22-30); Chloride 102 mmol/L (98-107); Estimated Creatinine Clearance 68 ml/min; Glucose 226 mg/dl (70-99); Magnesium 2.1 mg/dl (1.6-2.3); Phosphorus 2.7 mg/dl (2.5-4.5); Potassium 3.7 mmol/L (3.5-5.1); Sodium 134 mmol/L (135-145); eGFR > 60.00
--- NOTE | 2024-12-02 23:05 | PTCARENOTE ---
Assumed care of pt from ana maria ASIF. Pt aaox3. Sinus tach on monitor with PVCs and PACs. Amiodarone gtt infusing. 93% on 13 L NC. Pt OOB to BSC, standby assist during ambulation. Hygiene completed. Pt resting in bed with call concepcion in reach.
[2024-12-03] VITALS (15 sets, daily range): BP systolic 85–111; BP diastolic 57–95; BMI 23.8
[2024-12-03] MEDS: TYLENOL 650 MG PO ×2 (02:02→06:26)
[2024-12-03] MEDS: SYNTHROID 100 MCG PO (05:06)
[2024-12-03 05:11] LABS: Hematocrit 44.2 % (37.0-47.0); Hemoglobin 14.6 g/dL (12.0-16.0); Mean Corpuscular Hgb 29.9 pg (27.0-31.0); Mean Corpuscular Volume 90.6 fL (81.0-99.0); Mean Platelet Volume 10.1 fL (7.4-10.4); Platelet Count 266 10^3/uL (130-400); Red Blood Cell Count 4.88 10^6/uL (4.20-5.40); Red Cell Dist. Width 14.5 % (11.5-14.5); White Blood Cell Count 31.1 10^3/uL (4.8-10.8)
[2024-12-03] MEDS: NSS 250 IV (05:12)
[2024-12-03] MEDS: LOPRESSOR PO (05:13)
[2024-12-03 05:35] LABS: ALT (SGPT) 48 U/L (0-35); AST (SGOT) 85 U/L (14-36); Albumin 2.7 g/dl (3.5-5.0); Alkaline Phosphatase 119 U/L (38-126); Blood Urea Nitrogen 24 mg/dl (7-17); Calcium 8.3 mg/dl (8.4-10.2); Carbon Dioxide 17 mmol/L (22-30); Chloride 106 mmol/L (98-107); Estimated Creatinine Clearance 58 ml/min; Glucose 96 mg/dl (70-99); Magnesium 2.3 mg/dl (1.6-2.3); Phosphorus 2.9 mg/dl (2.5-4.5); Sodium 139 mmol/L (135-145); Total Bilirubin 0.9 mg/dl (0.2-1.3); Total Protein 5.2 g/dl (6.3-8.2); eGFR > 60.00
[2024-12-03] MEDS: LOPRESSOR 25 MG PO ×2 (06:19→20:21)
--- NOTE | 2024-12-03 07:09 | W.PN.HOSP.TC ---
Today's Communication/Plan
-
-Amiodarone gtt switched to PO
-Follow O2 saturation and vitals and wean o2 as able to
-Follow CBC, CMP, K,LFTs
Assessment / Plan
Assessment / Plan
ASSESSMENT & PLAN
#Sepsis
-Chest CT: Moderate right upper lobe and severe right lower lobe consolidation probably pneumonia.Small right pleural effusion.
-Became hypoxic 12/02 pm and needed placed on supplemental oxygen
-Leucocytosis with bandemia -WBC increasing
-Urine test positive for strep pneum antigen
-Blood culture: Prelim: gram positive cocci-- final report pending--single blood cx positive, monitor for persistence given MV replacement, TR repair
-ID and Pulmonology on board
-Continue ceftriaxone and doxycycline
#Anion gap Acute metabolic acidosis
-Anion gap: 17 on 12/02-- decreased to 16 on 12/03-- lactate:1.5 N
-Respiratory compensation with 7.35 ph on ABG on 12/02
#Transaminitis
-Elevated LFTs likely secondary to sepsis vs drug induced
-AST 85 ALT 48 TB 0.9
-Follow up
#Paroxysmal AF with RVR
-Hx of Paroxysmal A Fib (On Eliquis and metoprolol 25 mg)
-Not cardioverted at ER after discussion with cardiology due a possibility missing a dose of Eliquis in last weeks
-Cardiology on board
-Converted to SR/ST with Cardizem gtt at admission and continued with Cardizem gtt- but became hypotensive The patient retuned to Afib following trail of dc of diltiazem gtt on 12/02 am and continued on Cardizem again -cardio switched Cardizem gtt
to amiodarone on 12/02 morning---Cardio switched amiodarone gtt to PO on 12/03
-Continue metoprolol for now while loading amio
-Continue Eliquis
-Echo 12/01: Normal biventricular size and systolic function without regional wall motion abnormality. LVEF 55-60%. #31 mm Mitris bioprosthesis mitral valve replacement with mean gradient of 5
mmHg. No mitral regurgitation. #28 Tri Ad band tricuspid valve repair with mean gradient of 2 mmHg. Trace tricuspid regurgitation. Compared to prior echocardiogram in March 2024, LVEF has improved from 48% to 55-60%. Echocardiogram is
otherwise unchanged.
#Hypokalemia
-K 4 on 12/03
-c/w KCI 20 meq Q48 H/Follow BMP
#Hx of CHF (HFrEF 2023 TTE : LVEF 40s)
- c/w Lasix 20mg q48H
- c/w Jardiance
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
#essential HTN
#PUD
-Hx of GI bleeding (PUD with ulcer resulting in obstruction s/p gastrojejunostomy bypass 2002)
-Hx of melena in 03/2024 underwent EGD (Two non-bleeding superficial ulcers with no stigmata of bleeding were found distal to the gastrojejunal anastomosis in the jejunum)
-Continue PPI
#Hypothyroidism
-Continue levothyroxine
-TSH 62.8 and free T4 0.89
-Amiodarone effect will be considered
#Abdominal pain due gas
-simethicone PRN
DVT Px: CAFETERIA CASHIER Eliquis
Code: Full
Anticipated Discharge: 24 - 48 hours
Subjective/Interval History
-
Date of Service: December 03, 2024
Patient reports feeling much better compared to yesterday. She feels her shortness of breath improved with supplemental oxygen. She has been on 12 L of nasal supplemental oxygen when I saw her in the morning. Denies palpitations, chest pain,
fever, chills, sputum and phlegm.
Objective Data
-
Labs:
Laboratory Results
12/03/24
04:39
WBC 31.1 H
Hgb 14.6
Hct 44.2
Plt Count 266
Sodium 139
Potassium 4.0
Chloride 106
Carbon Dioxide 17 L
BUN 24 H
Creatinine 0.7
Glucose 96
Calcium 8.3 L
Total Bilirubin 0.9
AST 85 H
ALT 48 H
Alkaline Phosphatase 119
Vital Signs:
Vital Signs
Temp Pulse Resp BP Pulse Ox
97.8 F 109 23 100/74 93
12/03/24 03:58 12/03/24 06:19 12/03/24 06:19 12/03/24 06:19 12/03/24 06:19
I&O
12/02/24 12/03/24 12/04/24
06:59 06:59 06:59
Intake Total 480 / 480
Output Total 1275 / 1275 1100 / 1100
Balance -795 / -795 -1100 / -1100
Review of Systems
-
EENT: Reports No Symptoms Reported
Respiratory: Reports Cough (Dry cough)
Abdomen/GI: Reports No Symptoms
Genitourinary: Reports No Symptoms
Musculoskeletal: Reports No Symptoms
Skin: Reports No Symptoms
Neuro: Reports No Symptoms
Physical Exam
-
General: Well Developed, Well Nourished and Comfortable
HEENT: Normocephalic and Atraumatic
Respiratory: Crackles (On right lung)
Cardiac: Regular Rhythm (Patient was seen in sinus rhythm on monitor this a.m. when I saw her ) and S1/S2
GI: Soft, Nontender and Nondistended
Musculoskeletal: No Clubbing, No Cyanosis and No Edema
Skin: Warm
Neuro: Awake, Alert, Oriented, AO x 3 and Nonfocal/Grossly Intact
Psych: Calm
--- NOTE | 2024-12-03 07:16 | PTCARENOTE ---
Pt's bp is 90/63 (MAP 73), hr 110s-160s. Pt appeared to go into afib. EKG obtained which showed aflutter. Pt asymptomatic. ARETHA Pham notified. Rx received for 250 mL bolus.
[2024-12-03 07:44] LABS: % Basophils 0.1 % (0-2); % Monocytes 8.6 % (1.7-9.3); % Neutrophils 87.3 % (42.2-75.2); Absolute Immature Granulocytes 0.6 10^3/uL (0-0.05); Absolute Lymphocytes 0.6 10^3/uL (1.2-3.4); Absolute Monocytes 2.7 10^3/uL (0.1-0.6); Absolute Neutrophils 27.2 10^3/uL (1.4-6.5); Nucleated Red Blood Cells % 0 %
--- NOTE | 2024-12-03 08:54 | W.PN.PUL3 ---
Today's Communication / Plan
-
Antibiotics
PO Amio
Heart rate control with goal <110
Replete K>4, Mg>2
Wean down supplemental O2 flow rate as tolerated
If tachypnea worsens then would start high flow nasal cannula first, and then if no improvement then transition to BiPAP
Low threshold to transfer to ICU if she continues to clinically deteriorate; today she does appear more stable so hopefully she will continue to improve going forward
Aspiration precautions
Up OOB as tolerated
Encouraged incentive spirometer use 10x pe hour for at least 4 hrs a day
Pulmonary service will continue to follow along
Assessment
-
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
emergent mitral valve replacement + TV repair (07/2023), and lumbosacral + cervical DDD who presented with SOB and palpitations on 11/30/2024. She started to feel unwell this past Saturday (11/28), with nausea and a dry cough which continued. On the
morning prior to arrival, her heart was racing and she felt lightheaded. She was found to be in rapid A-fib with heart rate in the 160�170s, initial BP 112/88 which dropped into the 90s/60s, and she was saturating 92% on 2 L/min. She was afebrile
to 98.8 �F. Initial labs showed leukocytosis to 14.7, 10% bands, with a negative troponin of <0.012, elevated TSH at 62.8 and free T4 WNL at 0.89. COVID-19 antigen was negative. Blood cultures were collected and flu swab was negative. Initial
CXR showed mildly elevated right hemidiaphragm with faint opacification of the right base. She initially was admitted to the IVU for A-fib with RVR. Cardiology and ID were both consulted. She then converted to sinus tachycardia on 12/01. On 12/02,
her Streptococcus pneumonia antigen returned positive, and CT chest was recommended which showed a posterior right upper lobe pneumonia and severe bilateral lobe pneumonia. Also on 12/02, she converted back into rapid A-fib with HR in 150s and
Cardizem drip was resumed however this caused hypotension. Amiodarone drip was then started per cardiology. CXR was obtained showing persistent pneumonia with suspected worsening right lower lobe opacification. Patient now being transferred to
the IMU for further care and Pulmonary services consulted for additional management/recommendations.
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
Impression:
#CAP involving posterior right upper lobe + right lower lobe likely due to Streptococcus pneumoniae given positive S. pneumoniae urine antigen
#Leukocytosis with bandemia due to above with sepsis without shock
#A-fib with RVR (has history of A-fib, on Eliquis at home) - now in NSR
#Metabolic acidosis with appropriate respiratory compensation
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
#Moderate TR s/p TV repair
#PUD
#History of hypertension
#Subclinical hypothyroidism with TSH 62.8 and free T4 0.89
Plan:
- Patient reverted back to rapid A-fib on 12/02 and Cardizem drip was started, which was then switched to amiodarone gtt per cardiology due to hypotension
- Pt now weaned off amio gtt and started on PO amio today (12/03)
- CT chest obtained AM of 12/02 showed a posterior right upper lobe and severe right lower lobe consolidation consistent with pneumonia with a small parapneumonic right-sided pleural effusion; also nonspecific mediastinal lymphadenopathy, likely
reactive
- Patient became increasingly hypoxic on afternoon of 12/02. Stat CXR shows similar location of right-sided pneumonia, possibly increased opacification in the right base
- Pt was TRX to IMU on 12/02 where she remains, and is currently on 13L/min via midflow NC; wean down supplemental oxygen to maintain SpO2 >90-94%, she may benefit from high flow nasal cannula given its increased PEEP; for now, continue midflow NC
- If WOB increases, then first try high flow as stated above, and then change to BiPAP if still not improved
- Low threshold to transfer to ICU for intubation if she continues to clinically deteriorate
- Continue with antibiotics as per ID, currently on ceftriaxone + doxycycline
- Blood gas obtained on 12/02 showed metabolic acidosis with appropriate respiratory compensation and hypoxia with increased A-a gradient
- Lactate was WNL at 1.5
- Continue aspiration precautions
- prn nebulized bronchodilators - not currently bronchospastic
- Continue heart rate control, now off amiodarone gtt and on PO amio
- Goal HR<110
- Her TSH was highly elevated to 62.8 on admission, however free T4 was WNL
- Repeat TSH today (12/03) is improved to 36
- Continue to periodically check her TSH until normalized or closer to 10; would be careful increasing dose of LT4 now as this could worsen her rapid A fib
- Maintain MAP>65
- Replete electrolytes with K>4, Mg>2
- Maintain euglycemia with goal BG 140-180
- Trend H/H and transfuse if needed to keep Hb>7g/dL; keep plt>20k, unless there is concern for bleeding then keep plt>50k
- DVT ppx: Eliquis
Pulmonary service will continue to follow along.
Data:
CT Chest with IV contrast 12/02/2024:
Moderate right upper lobe and severe right lower lobe consolidation probably pneumonia. Clinical and laboratory correlation recommended.
Small right pleural effusion.
Developing mild left lower lobe pneumonia versus a pulmonary nodule. Continued surveillance recommended. Repeat chest CT exam in approximately 2 weeks following treatment for pneumonia is recommended.
Mild right lower lobe atelectasis versus scarring
Total time spent today was 36 minutes for this encounter. Time includes reviewing laboratory test/imaging results, reviewing pertinent medical records, obtaining and reviewing medical history, performing an appropriate exam, ordering medications,
tests and procedures. Time also includes documentation of this encounter, coordinating patient care and communicating with other healthcare professionals. Total time does not include separately billed tests performed on this date of service.
Subjective Data
-
Date of Service:
Date of Service: December 03, 2024
Chief Complaint: Pulmonary Follow Up
Subjective:
Patient was seen and evaluated today at bedside. White count worsening today but she is feeling well. Patient's son, Alberto, is at bedside and all questions were answered. IV amiodarone drip changed to oral amiodarone today. Patient's SOB is
improved. Currently on 13 L/min via midflow nasal cannula saturating 98% with heart rate 82 and BP 106/73. Per the RN, she has been converting into NSR and then reverting back to A-fib throughout last night and throughout the today. Patient
currently denies chest pain, JOSEPH, nausea, diarrhea, fevers or chills.
Review of Systems
General: Other (Negative unless mentioned above)
Objective Data
Data Reviewed
Vital Signs / I&O / Oxygen:
Vital Signs
Temp Pulse Resp BP Pulse Ox
97.5 F 109 23 100/74 93
12/03/24 07:39 12/03/24 06:19 12/03/24 06:19 12/03/24 06:19 12/03/24 06:19
Intake and Output
12/02/24 12/03/24 12/04/24
06:59 06:59 06:59
Intake Total 480 / 480
Output Total 1275 / 1275 1100 / 1100
Balance -795 / -795 -1100 / -1100
SaO2 93
Nasal Cannula flow liters per 2
minute
Physical Exam
General: Respiratory Distress (negative), Comfortable, Chills (negative) and Sweats (negative)
HEENT: Normocephalic and Anicteric
Cardiovascular: S1-S2 and Peripheral Edema (negative)
Respiratory: Wheeze (negative), Crackles (Bibasilar), Rhonchi (negative) and Non-Labored Respirations
GI: Soft, Non Distended, Non Tender and Normal Bowel Sounds
Neurology: AO x 3 and Tremors (negative)
Skin: Warm, Dry, Cyanosis (negative) and Jaundice (negative)
Labs/Micro/Reports
Lab Data
12/03/24 04:39
12/03/24 04:39
Laboratory Results
12/02/24
16:33
pH 7.35
pCO2 27 L
pO2 64 L
HCO3 14.9 L*
O2 Delivery Level
Microbiology
12/02/24 11:53 Blood/Venous Blood Culture - Preliminary
Positive culture in progress
12/02/24 11:53 Blood/Venous Gram Stain - Preliminary
12/02/24 11:36 Urine Legionella Urinary Antigen - Final
Negative for Legionella pneumophila Serogroup 1 antigen.
A negative result does not rule out the possiblity of
Legionella infection due to other serogroups or species of
Legionella. Clinical correlation is recommended.
12/02/24 11:36 Urine Streptococcus pneumoniae Antigen (M - Final
Streptococcus pneumoniae
12/01/24 10:29 Blood/Venous Blood Culture - Preliminary
No Growth in 24 hours- Final report to follow
12/01/24 09:40 Blood/Venous Blood Culture - Preliminary
No Growth in 24 hours- Final report to follow
12/01/24 12:10 Nasal Swab Influenza Types A & B ([facility]) - Final
Negative for Influenza A & B, NAAT
Negative results must be combined with clinical observations
and patient history.
Nucleic Acid Amplification test (NAAT)performed on the
[employer] platform.
[2024-12-03] MEDS: PROTONIX 40 MG PO (09:10)
[2024-12-03] MEDS: VIBRAMYCIN 100 MG PO ×2 (09:10→20:21)
[2024-12-03] MEDS: COLACE 100 MG PO ×2 (09:10→20:20)
[2024-12-03] MEDS: FARXIGA 10 MG PO (09:10)
[2024-12-03] MEDS: OSCAL CAL 500 500 MG PO (09:10)
--- NOTE | 2024-12-03 09:16 | W.PN.UPDATE ---
Update Note
Progress Note Update
I saw and evaluated the patient. I reviewed the resident�s note and agree with findings and plan as documented in the resident�s note.
Currently denies SOB. .
Gen: NAD, AAOx3.
Eyes: EOMI, PERRLA, no scleral icterus.
Neck: supple.
CV: tachy, irreg/irreg, +S1/S2, no m/r/g.
Resp: rales in the R hemithorax, no wheezes or rhonchi.
Abd: +BS, soft, NT, ND
Skin: No rashes.
Neuro: continues to remain CN 2-12 intact, non-focal.
Psych: Normal mood and affect.
12/02/24 11:53 Blood/Venous Blood Culture - Preliminary
Positive culture in progress
12/02/24 11:53 Blood/Venous Gram Stain - Preliminary
12/02/24 11:36 Urine Legionella Urinary Antigen - Final
Negative for Legionella pneumophila Serogroup 1 antigen.
A negative result does not rule out the possiblity of
Legionella infection due to other serogroups or species of
Legionella. Clinical correlation is recommended.
12/02/24 11:36 Urine Streptococcus pneumoniae Antigen (M - Final
Streptococcus pneumoniae
12/01/24 10:29 Blood/Venous Blood Culture - Preliminary
No Growth in 24 hours- Final report to follow
12/01/24 09:40 Blood/Venous Blood Culture - Preliminary
No Growth in 24 hours- Final report to follow
12/01/24 12:10 Nasal Swab Influenza Types A & B ([facility]) - Final
Negative for Influenza A & B, NAAT
Negative results must be combined with clinical observations
and patient history.
Nucleic Acid Amplification test (NAAT)performed on the
[employer] platform.
Echo: Normal biventricular size and systolic function without regional wall motion
abnormality. LVEF 55-60%.
#31 mm Mitris bioprosthesis mitral valve replacement with mean gradient of 5
mmHg. No mitral regurgitation.
#28 Tri Ad band tricuspid valve repair with mean gradient of 2 mmHg. Trace
tricuspid regurgitation.
Compared to prior echocardiogram in March 2024, LVEF has improved from 48% to
55-60%. Echocardiogram is otherwise unchanged.
CT chest: Moderate right upper lobe and severe right lower lobe consolidation probably pneumonia. Clinical and laboratory correlation recommended. Small right pleural effusion. Developing mild left lower lobe pneumonia versus a pulmonary nodule.
Continued surveillance recommended. Repeat chest CT exam in approximately 2 weeks following treatment for pneumonia is recommended. Mild right lower lobe atelectasis versus scarring
Afib with RVR:
-Patient possibly missed a dose of Eliquis in the last 2 to 3 weeks and therefore no cardioversion in the ER
-initially was on cardizem gtt. She converted to SR/ST and cardizem gtt was stopped.
-12/02/24AM pt converted back to afib with RVR. BP was dropping and Amio gtt started.
-transition to PO Amio today as per discussion with Dr. Ram
-cont E/BBliquis
-echo above
Sepsis and acute hypoxemic respiratory failure due to acute B/L PNA:
-Leukocytosis with bandemia
-currently on 13L Midflow
-CT chest above
-strep pneumo urinary Ag POS
-cont Rocephin/Doxy as per ID
-follow BCxs
AG met acidosis:
-start NS @ 80cc/hr
-stop lasix
Other problems:
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
h/o SVT
Severe PUD resulting in Gastrojejunostomy 20 years ago: cont PPI
Essential hypertension: cont BB
Hypothyroidism: cont Levoxyl
FULL/Eliquis
Total time spent on today's encounter was 50 minutes which included time spent in counseling the patient/family regarding diagnosis and treatment plan as listed above, goals of care, and symptom management. Case was discussed with nursing staff,
specialists, and care coordinators/case management. All labs and imaging personally reviewed by me. Remainder the time spent in detailed review of previous records, lab data, imaging, and other medical provider documentation.
--- NOTE | 2024-12-03 10:02 | W.PN.CD ---
Today's Communication / Plan
-
stop amiodarone gtt
start amiodarone 400mg bid
decrease metoprolol to bid
Impression / Plan
-
74 y/o pt with history of MR--acute flaile P2 and CHF s/p MVR��31mm Mitris bio-prosthesis, Moderate TR s/p TV repair(28mm Tri Ad band)�,HTN, PSVT and PAF.��
Acute hypoxic respiratory failure 2/2 to pna:
-on high oxygen requirement
-treat as per medicine, pulm and ID
PAF: initially RVR now Sinus Tachycardia
-in Sinus
-now on IV amiodarone will transition to po
-start 400mg po bid
-continue metoprolol for now while loading, will reduce dose
Sepsis 2/2 to PNA
-CT 12/02/24 with Moderate right upper lobe and severe right lower lobe consolidation probably pneumonia. Clinical and laboratory correlation recommended. Small right pleural effusion.
-suspect Strep pneumonia--ID and Pulm following
-single blood cx positive, monitor for persistence given MVreplacement, TR repair
MV replacement:no abnormal flow
TV repair: no abnormal flow
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
-not in CHF
-EF normalized
Will follow, d/w Dr Talamantes.
Subjective;
yesterday afternoon had increased sob and hypoxia. Upgraded to IMU.
-feeling better this am, asking about d/c plan
Data Reviewed:
-
CT scan above
TTE 12/02/24 CONCLUSIONS
Normal biventricular size and systolic function without regional wall motion
abnormality. LVEF 55-60%.
#31 mm Mitris bioprosthesis mitral valve replacement with mean gradient of 5
mmHg. No mitral regurgitation.
#28 Tri Ad band tricuspid valve repair with mean gradient of 2 mmHg. Trace
tricuspid regurgitation.
Compared to prior echocardiogram in March 2024, LVEF has improved from 48% to
55-60%. Echocardiogram is otherwise unchanged.
-
Echocardiogram 03/31/2024 shows normal LV cavity size and thickness with mildly reduced LVEF at 48.5% by Quezada's biplane. Abnormal paradoxical septal motion consistent with postoperative status. Well-seated number 31 mm mitral is bioprosthetic
mitral valve replacement with mean gradient 4 mmHg, status post #28 triad band tricuspid valve repair with trace regurgitation, aortic sclerosis without stenosis. Visually unchanged from 09/18/2023.
-
[facility] 07/22/2022 codominant circulation with no CAD. Moderate to severely elevated filling pressures severe pulmonary hypertension
Physical Exam
Vital Signs/Labs
Vital Signs
Temp Pulse Resp BP Pulse Ox
97.5 F 109 23 100/74 93
12/03/24 07:39 12/03/24 06:19 12/03/24 06:19 12/03/24 06:19 12/03/24 06:19
12/02/24 12/03/24 12/04/24
06:59 06:59 06:59
Actual Weight 131 lb 6.328 oz 134 lb 0.657 oz
12/03/24 04:39
12/03/24 04:39
PT 18.8 Sec (11.4-14.6) H 11/30/24 11:47
INR 1.55 11/30/24 11:47
APTT 38.5 Sec (23.4-35.0) H 11/30/24 11:47
Magnesium 2.3 mg/dl (1.6-2.3) 12/03/24 04:39
Triglycerides 95 mg/dl (10-149) 12/01/24 03:40
LDL Cholesterol, Calc 42 mg/dl 12/01/24 03:40
VLDL Cholesterol, Calc 19 mg/dl (0-30) 12/01/24 03:40
HDL Cholesterol 22 mg/dl 12/01/24 03:40
Free T4 0.89 ng/dl (0.78-2.19) 11/30/24 11:47
LAB Results
11/30/24
11:45
Troponin I < 0.012
Physical Exam
Constitutional: No acute distress
Cardiovascular: Rhythm & rate is regular, Pedal edema is absent, JVD pressure is normal, Systolic murmur absent and Diastolic murmur absent
Respiratory: Respiratory effort normal, Wheeze Absent, Rhonchi Absent and Crackles Present (midlung field)
Neuro/Psych: AO x 3
Data Reviewed
-
Date of Service: December 03, 2024
Medical Decision Making: Review of Case with other Provider (Dr Talamantes transitioning to po amiodarone)
EKG: Other (tele sinus with pacs )
X-Ray/CT/US/MRI/NUC/PET: Image Personally Visualized and interpreted (ct chest with dense rt sided infiltrate with airbronchograms)
Labs: Labs Reviewed by me (+blood culture--gram positive cocci)
[2024-12-03] MEDS: NSS 1000 IV ×2 (11:03→23:31)
[2024-12-03] MEDS: ROCEPHIN 1000 MG IV (11:03)
[2024-12-03] MEDS: STERILE WATER FOR INJECTION 10 ML IV (11:03)
[2024-12-03] MEDS: PACERONE 400 MG PO ×2 (11:03→20:21)
--- NOTE | 2024-12-03 11:17 | PTCARENOTE ---
PO Amio administered and Amio gtt turned off per orders.
[2024-12-03] MEDS: ELIQUIS 5 MG PO ×2 (13:40→20:36)
[2024-12-03] MEDS: ULTRAM 50 MG PO (13:40)
--- NOTE | 2024-12-03 15:06 | W.PN.ID1 ---
Date of Service
Date of Service: December 03, 2024
Today's Communication
Continue abx.
Assessment / Plan
Leukocytosis
Right lower lobe pneumonia
Bacteremia
Positive streptococcal urinary antigen
Paroxysmal A-fib with RVR
HFrEF
Hypothyroidism
HTN
Hx MVR with tricuspid repair
Recommendations:
Continue ceftriaxone.
Discontinue further doxycycline.
Follow white count and temperature curve.
����������������������������������������������������������
Chief Complaint
-: Pneumonia
Subjective / Review of Systems
Review of Systems: No Fever, No Chills, Cough and No Sputum Production
Vital Signs / Physical Exam
Vital Signs
Vital Signs
Temp Pulse Resp BP Pulse Ox
97.5 F 100 14 106/73 98
12/03/24 11:49 12/03/24 14:00 12/03/24 14:00 12/03/24 14:00 12/03/24 14:00
Physical Exam
Constitutional: No Acute Distress, Comfortable, Chronically Ill and Non-toxic
Eyes: Sclera Anicteric
Cardiovascular: Irregular Rate and S1/S2; Negative S3/S4
Pulmonary: Coarse and Non Labored
Gastrointestinal: Soft and Non Tender
Neurological: Awake and Alert
Psychological: Calm
Objective Data
Lab Data
Lab Results
12/03/24 04:39
12/03/24 04:39
PT 18.8 Sec (11.4-14.6) H 11/30/24 11:47
INR 1.55 11/30/24 11:47
APTT 38.5 Sec (23.4-35.0) H 11/30/24 11:47
Estimated Creat Clear 58 ml/min 12/03/24 04:39
Lactic Acid 1.5 mmol/L (0.7-2.0) 12/02/24 17:46
Total Bilirubin 0.9 mg/dl (0.2-1.3) 12/03/24 04:39
AST 85 U/L (14-36) H 12/03/24 04:39
ALT 48 U/L (0-35) H 12/03/24 04:39
Alkaline Phosphatase 119 U/L (38-126) 12/03/24 04:39
Most recent labs reviewed.
Micro Results:
12/02/24 10:40 Blood Culture - Preliminary
Blood/Venous No Growth in 24 hours- Final report to follow
12/01/24 10:29 Blood Culture - Preliminary
Blood/Venous No Growth in 48 hours- Final report to follow
12/01/24 09:40 Blood Culture - Preliminary
Blood/Venous No Growth in 48 hours- Final report to follow
12/02/24 11:53 Blood Culture - Preliminary
Blood/Venous Positive culture in progress
Gram Stain - Preliminary
12/02/24 11:36 Legionella Urinary Antigen - Final
Urine Negative for Legionella pneumophila Serogroup 1 antigen.
A negative result does not rule out the possiblity of
Legionella infection due to other serogroups or species of
Legionella. Clinical correlation is recommended.
Streptococcus pneumoniae Antigen - POSITIVE
Streptococcus pneumoniae
12/01/24 12:10 Influenza Types A & B ([facility]) - Final
Nasal Swab Negative for Influenza A & B, NAAT
Negative results must be combined with clinical observations
and patient history.
Nucleic Acid Amplification test (NAAT)performed on the
[employer] platform.
Imaging:
12/02/24 CT chest: Official report pending, but right lower lobe dense consolidation noted on personal review.
11/30/2024 CXR (portable): Mild elevation of the right hemidiaphragm compared with left. Hazy opacity over the right lower lung. No dense airspace consolidation noted. No effusion. No pneumothorax. Please see full dictation for additional detail.
--- NOTE | 2024-12-03 15:45 | PTCARENOTE ---
Pt's assessment as documented. Aox3. SR with PVC's on tele monitor. Rates controlled at this time. IVF infusing as ordered. Medicated with PRN Tramadol for generalized body aches- see MAR. Updated on plan of care. Ringing appropriately, Call concepcion
within reach.
--- NOTE | 2024-12-03 20:54 | PTCARENOTE ---
Patient aao x3, denies pain. HR irregular, rate in the 80's. Patient on midflow at 10L, pox 99%. Patient refusing pm hygiene and oral care at this time and states, 'I'm just tired'. RN assisted pt to bsc, gait steady. Patient voided moderate amount
of clear, yellow urine. Patient currently resting in bed, call concepcion within reach. Will continue to monitor patient closely.
[2024-12-04] VITALS (13 sets, daily range): BP systolic 100–135; BP diastolic 56–91; BMI 23.8
--- NOTE | 2024-12-04 03:23 | PTCARENOTE ---
Patient in and out of afib overnight, hr increasing to 150's at times, then quickly returning to low 100's. Patient with no c/o at this time. Will continue to monitor.
[2024-12-04] MEDS: SYNTHROID 100 MCG PO (04:02)
[2024-12-04 04:48] LABS: ALT (SGPT) 34 U/L (0-35); AST (SGOT) 52 U/L (14-36); Albumin 2.3 g/dl (3.5-5.0); Alkaline Phosphatase 105 U/L (38-126); Blood Urea Nitrogen 30 mg/dl (7-17); Carbon Dioxide 20 mmol/L (22-30); Chloride 107 mmol/L (98-107); Estimated Creatinine Clearance 58 ml/min; Glucose 94 mg/dl (70-99); Magnesium 2.4 mg/dl (1.6-2.3); Potassium 3.7 mmol/L (3.5-5.1); Sodium 138 mmol/L (135-145); Total Bilirubin 0.5 mg/dl (0.2-1.3); Total Protein 4.5 g/dl (6.3-8.2); eGFR > 60.00
[2024-12-04 04:49] LABS: Hematocrit 37.3 % (37.0-47.0); Hemoglobin 12.5 g/dL (12.0-16.0); Mean Corp Hgb Conc. 33.5 g/dL (33.0-37.0); Mean Corpuscular Hgb 30.5 pg (27.0-31.0); Platelet Count 264 10^3/uL (130-400); Red Cell Dist. Width 14.4 % (11.5-14.5); White Blood Cell Count 38.7 10^3/uL (4.8-10.8)
--- NOTE | 2024-12-04 07:18 | W.PN.HOSP.TC ---
Today's Communication/Plan
-
-Continue ceftriaxone
-Amiodarone po
-Wean oxygen as able to while following HR closely with a goal HR<110
-Follow CMP, CBC, temperature curve
Assessment / Plan
Assessment / Plan
ASSESSMENT & PLAN
#Sepsis
-Chest CT: Moderate right upper lobe and severe right lower lobe consolidation probably pneumonia.Small right pleural effusion.
-Became hypoxic 12/02 pm and needed placed on supplemental oxygen
-Persistent Leucocytosis
-Urine test positive for strep pneum antigen
-Blood culture: Prelim: gram positive cocci-- final report pending--single blood cx positive, monitor for persistence given MV replacement, TR repair
-ID and Pulmonology on board
-Continue ceftriaxone
-Doxycycline dc ed
#Anion gap Acute metabolic acidosis
-Improving
-Anion gap: 17 on 12/02-- decreased to 16 on 12/03-- lactate:1.5 N- decreased to 11 on 12/04: WNL
-Respiratory compensation with 7.35 ph on ABG on 12/02
-Continue NS at 80 ML/H
-Hold lasix
#Transaminitis
-Elevated LFTs likely secondary to sepsis vs drug induced
-Trending down
-Follow up
#Paroxysmal AF with RVR
-Hx of Paroxysmal A Fib (On Eliquis and metoprolol 25 mg)
-Not cardioverted at ER after discussion with cardiology due a possibility missing a dose of Eliquis in last weeks
-Cardiology on board
-Converted to SR/ST with Cardizem gtt at admission and continued with Cardizem gtt- but became hypotensive The patient retuned to Afib following trail of dc of diltiazem gtt on 12/02 am and continued on Cardizem again -cardio switched Cardizem gtt
to amiodarone on 12/02 morning---Cardio switched amiodarone gtt to PO on 12/03
-Continue metoprolol for now while loading amio
-Continue Eliquis
-Echo 12/01: Normal biventricular size and systolic function without regional wall motion abnormality. LVEF 55-60%. #31 mm Mitris bioprosthesis mitral valve replacement with mean gradient of 5
mmHg. No mitral regurgitation. #28 Tri Ad band tricuspid valve repair with mean gradient of 2 mmHg. Trace tricuspid regurgitation. Compared to prior echocardiogram in March 2024, LVEF has improved from 48% to 55-60%. Echocardiogram is
otherwise unchanged.
#Hypokalemia
-K 4 on 12/03
-c/w KCI 20 meq Q48 H/Follow BMP
#Hx of CHF (HFrEF 2023 TTE : LVEF 40s)
- c/w Lasix 20mg q48H
- c/w Jardiance
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
#essential HTN
#PUD
-Hx of GI bleeding (PUD with ulcer resulting in obstruction s/p gastrojejunostomy bypass 2002)
-Hx of melena in 03/2024 underwent EGD (Two non-bleeding superficial ulcers with no stigmata of bleeding were found distal to the gastrojejunal anastomosis in the jejunum)
-Continue PPI
#Hypothyroidism
-Continue levothyroxine
-Amiodarone effect will be considered
-TSH 36 on 12/03/24
#Abdominal pain due gas
-simethicone PRN
DVT Px: [employer] Eliquis
Code: Full
Anticipated Discharge: 24 - 48 hours
Subjective/Interval History
-
Date of Service: December 04, 2024
Patient reports feeing some sleepy considering likely side effect of tramadol. Otherwise, feeling better with breathing, denies chest pain and palpitations, fever and chills.
Objective Data
-
Labs:
Laboratory Results
12/04/24
04:14
WBC 38.7 H
Hgb 12.5
Hct 37.3
Plt Count 264
Sodium 138
Potassium 3.7
Chloride 107
Carbon Dioxide 20 L
BUN 30 H
Creatinine 0.7
Glucose 94
Calcium 8.0 L
Total Bilirubin 0.5
AST 52 H
ALT 34
Alkaline Phosphatase 105
Vital Signs:
Vital Signs
Temp Pulse Resp BP Pulse Ox
97.4 F 144 10 102/56 99
12/04/24 07:00 12/04/24 06:32 12/04/24 06:32 12/04/24 06:32 12/04/24 02:00
I&O
12/03/24 12/04/24 12/05/24
06:59 06:59 06:59
Intake Total 1200 / 1200
Output Total 1100 / 1100
Balance -1100 / -1100 1200 / 1200
Review of Systems
-
History Source: Patient
Constitutional: Reports No Symptoms
Physical Exam
-
General: Well Developed, Well Nourished, Comfortable and Conversant
HEENT: Normocephalic, Atraumatic and Oxygen (On 10 L nasal oxygen )
Respiratory: Crackles (on the right lung )
Cardiac: Regular Rhythm (Patient was seen in sinus rhythm on monitor this a.m. when I saw her ), S1/S2, Irregular Rhythm (episodes of Afib ) and Tachycardic
GI: Soft, Nontender and Nondistended
Musculoskeletal: No Clubbing and No Cyanosis
Skin: Warm
Neuro: Awake, Alert, Oriented and AO x 3
Psych: Calm
[2024-12-04 07:45] LABS: Absolute Neutrophils -Man Diff 35.6 10^3/uL (1.4-6.5); Band Neutrophils 11 % (0-3); Lymphocytes 1 % (20-51); Monocytes 7 % (2-9); Platelets Checked Yes; Segmented Neutrophils 81 % (42-75)
[2024-12-04 07:46] LABS: Acanthocytes 1+; Anisocytosis 1+; Hypochromasia 1+; Normal RBC Morphology No; Polychromasia 1+; Total Cells Counted 100
--- NOTE | 2024-12-04 08:46 | W.PN.PUL3 ---
Today's Communication / Plan
-
Antibiotics
PO Amio
Heart rate control with goal <110
Replete K>4, Mg>2
Wean down supplemental O2 flow rate as tolerated
If tachypnea worsens then would start high flow nasal cannula, and then if no improvement then transition to BiPAP
Low threshold to transfer to ICU if she clinically deteriorates; today her O2 requirements are improving
Aspiration precautions
Up OOB as tolerated
Encouraged incentive spirometer use 10x pe hour for at least 4 hrs a day
Pulmonary service will continue to follow along
Assessment
-
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
emergent mitral valve replacement + TV repair (07/2023), and lumbosacral + cervical DDD who presented with SOB and palpitations on 11/30/2024. She started to feel unwell this past Saturday (11/28), with nausea and a dry cough which continued. On the
morning prior to arrival, her heart was racing and she felt lightheaded. She was found to be in rapid A-fib with heart rate in the 160�170s, initial BP 112/88 which dropped into the 90s/60s, and she was saturating 92% on 2 L/min. She was afebrile
to 98.8 �F. Initial labs showed leukocytosis to 14.7, 10% bands, with a negative troponin of <0.012, elevated TSH at 62.8 and free T4 WNL at 0.89. COVID-19 antigen was negative. Blood cultures were collected and flu swab was negative. Initial
CXR showed mildly elevated right hemidiaphragm with faint opacification of the right base. She initially was admitted to the IVU for A-fib with RVR. Cardiology and ID were both consulted. She then converted to sinus tachycardia on 12/01. On 12/02,
her Streptococcus pneumonia antigen returned positive, and CT chest was recommended which showed a posterior right upper lobe pneumonia and severe bilateral lobe pneumonia. Also on 12/02, she converted back into rapid A-fib with HR in 150s and
Cardizem drip was resumed however this caused hypotension. Amiodarone drip was then started per cardiology. CXR was obtained showing persistent pneumonia with suspected worsening right lower lobe opacification. Patient now being transferred to
the IMU for further care and Pulmonary services consulted for additional management/recommendations.
Chronic conditions SCRAPER HAND: Paroxysmal A-fib on Eliquis, hypertension, osteopenia, hypothyroidism, duodenal ulcer with outlet obstruction/stricture s/p gastrojejunostomy bypass (2002), lumbosacral + cervical DDD
Impression:
#CAP involving posterior right upper lobe + right lower lobe likely due to Streptococcus pneumoniae given positive S. pneumoniae urine antigen
#Leukocytosis with bandemia due to above with sepsis without shock
#A-fib with RVR (has history of A-fib, on Eliquis at home) - now rate controlled
#Metabolic acidosis with appropriate respiratory compensation
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
#Moderate TR s/p TV repair
#PUD
#History of hypertension
#Subclinical hypothyroidism with TSH 62.8 and free T4 0.89
Plan:
- Patient reverted back to rapid A-fib on 12/02 and Cardizem drip was started, which was then switched to amiodarone gtt per cardiology due to hypotension
- Pt now weaned off amio gtt and started on PO amio on 12/03
- CT chest obtained AM of 12/02 showed a posterior right upper lobe and severe right lower lobe consolidation consistent with pneumonia with a small parapneumonic right-sided pleural effusion; also nonspecific mediastinal lymphadenopathy, likely
reactive
- Patient became increasingly hypoxic on afternoon of 12/02. Stat CXR showed similar location of right-sided pneumonia, possibly increased opacification in the right base
- Pt was TRX to IMU on 12/02 where she remains, and is currently on 13L/min via midflow NC; wean down supplemental oxygen to maintain SpO2 >90-94%, she may benefit from high flow nasal cannula given its increased PEEP; for now, continue midflow NC
as her O2 requirements are improving as of 12/04
- If WOB increases, then first try high flow as stated above, and then change to BiPAP if still not improved
- Low threshold to transfer to ICU for intubation if she continues to clinically deteriorate
- Continue with antibiotics as per ID, currently on ceftriaxone + doxycycline
- Blood gas obtained on 12/02 showed metabolic acidosis with appropriate respiratory compensation and hypoxia with increased A-a gradient
- Lactate was WNL at 1.5
- Continue aspiration precautions
- prn nebulized bronchodilators - not currently bronchospastic
- Continue heart rate control, now off amiodarone gtt and on PO amio
- Goal HR<110
- Her TSH was highly elevated to 62.8 on admission, however free T4 was WNL
- Repeat TSH on 12/03 improved to 36
- Continue to periodically check her TSH until normalized or closer to 10; would be careful increasing dose of LT4 now as this could worsen her rapid A fib
- Maintain MAP>65
- Replete electrolytes with K>4, Mg>2
- Maintain euglycemia with goal BG 140-180
- Trend H/H and transfuse if needed to keep Hb>7g/dL; keep plt>20k, unless there is concern for bleeding then keep plt>50k
- DVT ppx: Eliquis
Pulmonary service will continue to follow along.
Data:
CT Chest with IV contrast 12/02/2024:
Moderate right upper lobe and severe right lower lobe consolidation probably pneumonia. Clinical and laboratory correlation recommended.
Small right pleural effusion.
Developing mild left lower lobe pneumonia versus a pulmonary nodule. Continued surveillance recommended. Repeat chest CT exam in approximately 2 weeks following treatment for pneumonia is recommended.
Mild right lower lobe atelectasis versus scarring
Total time spent today was 41 minutes for this encounter. Time includes reviewing laboratory test/imaging results, reviewing pertinent medical records, obtaining and reviewing medical history, performing an appropriate exam, ordering medications,
tests and procedures. Time also includes documentation of this encounter, coordinating patient care and communicating with other healthcare professionals. Total time does not include separately billed tests performed on this date of service.
Subjective Data
-
Date of Service:
Date of Service: December 04, 2024
Chief Complaint: Pulmonary Follow Up
Subjective:
Patient was seen and evaluated today at bedside. Feels tired today, and she attributes this to getting tramadol. Currently on 8 L/min nasal cannula. She feels slightly short of breath with a mild dry cough. Heart rate 101, BP 100/57 and
saturating 99%. She denies chest pain, JOSEPH, abdominal pain, nausea, diarrhea, fevers or chills.
Review of Systems
General: Other (Negative unless mentioned above)
Objective Data
Data Reviewed
Vital Signs / I&O / Oxygen:
Vital Signs
Temp Pulse Resp BP Pulse Ox
97.4 F 102 32 118/80 99
12/04/24 07:00 12/04/24 08:00 12/04/24 08:00 12/04/24 08:00 12/04/24 02:00
Intake and Output
12/03/24 12/04/24 12/05/24
06:59 06:59 06:59
Intake Total 1200 / 1200
Output Total 1100 / 1100
Balance -1100 / -1100 1200 / 1200
SaO2 99
Nasal Cannula flow liters per 2
minute
Physical Exam
General: Respiratory Distress (negative), Comfortable, Chills (negative) and Sweats (negative)
HEENT: Normocephalic and Anicteric
Cardiovascular: Irregular Rhythm (Irregularly irregular) and Peripheral Edema (negative)
Respiratory: Wheeze (negative), Crackles (Bibasilar + RUL), Rhonchi (negative) and Non-Labored Respirations
GI: Soft, Non Distended, Non Tender and Normal Bowel Sounds
Neurology: AO x 3 and Tremors (negative)
Skin: Warm, Dry, Cyanosis (negative) and Jaundice (negative)
Labs/Micro/Reports
Lab Data
12/04/24 04:14
12/04/24 04:14
Microbiology
12/01/24 09:40 Blood/Venous Blood Culture - Preliminary
No Growth in 72 hours- Final report to follow
12/02/24 10:40 Blood/Venous Blood Culture - Preliminary
No Growth in 24 hours- Final report to follow
12/01/24 10:29 Blood/Venous Blood Culture - Preliminary
No Growth in 48 hours- Final report to follow
12/02/24 11:53 Blood/Venous Blood Culture - Preliminary
Positive culture in progress
12/02/24 11:53 Blood/Venous Gram Stain - Preliminary
12/02/24 11:36 Urine Legionella Urinary Antigen - Final
Negative for Legionella pneumophila Serogroup 1 antigen.
A negative result does not rule out the possiblity of
Legionella infection due to other serogroups or species of
Legionella. Clinical correlation is recommended.
12/02/24 11:36 Urine Streptococcus pneumoniae Antigen (M - Final
Streptococcus pneumoniae
12/01/24 12:10 Nasal Swab Influenza Types A & B ([facility]) - Final
Negative for Influenza A & B, NAAT
Negative results must be combined with clinical observations
and patient history.
Nucleic Acid Amplification test (NAAT)performed on the
[employer] platform.
[2024-12-04] MEDS: LOPRESSOR 25 MG PO (09:09)
[2024-12-04] MEDS: COLACE 100 MG PO (09:09)
[2024-12-04] MEDS: OSCAL CAL 500 500 MG PO (09:09)
[2024-12-04] MEDS: PROTONIX 40 MG PO (09:09)
[2024-12-04] MEDS: FARXIGA 10 MG PO (09:09)
[2024-12-04] MEDS: PACERONE 400 MG PO ×2 (09:09→20:44)
[2024-12-04] MEDS: VIBRAMYCIN 100 MG PO ×2 (09:09→20:44)
--- NOTE | 2024-12-04 10:00 | W.PN.UPDATE ---
Update Note
Progress Note Update
I saw and evaluated the patient. I reviewed the resident�s note and agree with findings and plan as documented in the resident�s note.
Currently denies SOB. .
Gen: NAD, AAOx3.
Eyes: EOMI, PERRLA, no scleral icterus.
Neck: supple.
CV: tachy, RRR, +S1/S2, no m/r/g.
Resp: dec BS and mild rales in the R hemithorax, no wheezes or rhonchi.
Abd: +BS, soft, NT, ND
Skin: No rashes.
Neuro: continues to remain CN 2-12 intact, non-focal.
Psych: Normal mood and affect.
12/01/24 09:40 Blood/Venous Blood Culture - Preliminary
No Growth in 72 hours- Final report to follow
12/02/24 10:40 Blood/Venous Blood Culture - Preliminary
No Growth in 24 hours- Final report to follow
12/01/24 10:29 Blood/Venous Blood Culture - Preliminary
No Growth in 48 hours- Final report to follow
12/02/24 11:53 Blood/Venous Blood Culture - Preliminary
Positive culture in progress
12/02/24 11:53 Blood/Venous Gram Stain - Preliminary
12/02/24 11:36 Urine Legionella Urinary Antigen - Final
Negative for Legionella pneumophila Serogroup 1 antigen.
A negative result does not rule out the possiblity of
Legionella infection due to other serogroups or species of
Legionella. Clinical correlation is recommended.
12/02/24 11:36 Urine Streptococcus pneumoniae Antigen (M - Final
Streptococcus pneumoniae
12/01/24 12:10 Nasal Swab Influenza Types A & B ([facility]) - Final
Negative for Influenza A & B, NAAT
Negative results must be combined with clinical observations
and patient history.
Nucleic Acid Amplification test (NAAT)performed on the
[employer] platform.
Echo: Normal biventricular size and systolic function without regional wall motion
abnormality. LVEF 55-60%.
#31 mm Mitris bioprosthesis mitral valve replacement with mean gradient of 5
mmHg. No mitral regurgitation.
#28 Tri Ad band tricuspid valve repair with mean gradient of 2 mmHg. Trace
tricuspid regurgitation.
Compared to prior echocardiogram in March 2024, LVEF has improved from 48% to
55-60%. Echocardiogram is otherwise unchanged.
CT chest: Moderate right upper lobe and severe right lower lobe consolidation probably pneumonia. Clinical and laboratory correlation recommended. Small right pleural effusion. Developing mild left lower lobe pneumonia versus a pulmonary nodule.
Continued surveillance recommended. Repeat chest CT exam in approximately 2 weeks following treatment for pneumonia is recommended. Mild right lower lobe atelectasis versus scarring
Afib with RVR:
-Patient possibly missed a dose of Eliquis in the last 2 to 3 weeks and therefore no cardioversion in the ER
-initially was on cardizem gtt. She converted to SR/ST and cardizem gtt was stopped.
-12/02/24 pt converted back to afib with RVR. BP was dropping and Amio gtt started.
-transition to PO Amio today as per discussion with Dr. Ram
-cont Eliquis/BB
-echo above
-discussed with cards
Sepsis and acute hypoxemic respiratory failure due to acute B/L PNA:
-Leukocytosis (worsening) with bandemia (improving)
-was on 13L Midflow, now down to 10L midflow
-CT chest above
-strep pneumo urinary Ag POS
-cont Rocephin/Doxy as per ID
-follow BCxs
AG met acidosis:
-improving with NS @ 80cc/hr
Other problems:
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
h/o SVT
Severe PUD resulting in Gastrojejunostomy 20 years ago: cont PPI
Essential hypertension: cont BB
Hypothyroidism: cont Levoxyl
FULL/Eliquis
Total time spent on today's encounter was 52 minutes which included time spent in counseling the patient/family regarding diagnosis and treatment plan as listed above, goals of care, and symptom management. Case was discussed with nursing staff,
specialists, and care coordinators/case management. All labs and imaging personally reviewed by me. Remainder the time spent in detailed review of previous records, lab data, imaging, and other medical provider documentation.
--- NOTE | 2024-12-04 10:31 | W.PN.CD ---
Today's Communication / Plan
-
- Would continue amiodarone 400 mg p.o. twice daily while inpatient.
-Transition to amiodarone 200 mg p.o. twice a day for 14 days as an outpatient.
-Then start 200 mg daily
-continue metoprolol for now while loading, will reduce dose to 12.5 twice a day given low normal blood pressure at times.
- Check 1 more blood pressure to ensure clearance given mitral valve prosthesis
- No further cardiac recommendations at this time. Please call with questions. I will sign off.
Impression / Plan
-
74 y/o pt with history of MR--acute flaile P2 and CHF s/p MVR��31mm Mitris bio-prosthesis, Moderate TR s/p TV repair(28mm Tri Ad band)�,HTN, PSVT and PAF.��
Acute hypoxic respiratory failure 2/2 to pna:
-on high oxygen requirement but improving, now down to 10 L
-treat as per medicine, pulm and ID
PAF: initially RVR now Sinus Tachycardia
-in Sinus with PVCs
- Would continue amiodarone 400 mg p.o. twice daily while inpatient.
-Transition to amiodarone 200 mg p.o. twice a day for 14 days as an outpatient.
-Then start 200 mg daily
-Will discuss option of PVI once recovered.
-continue metoprolol for now while loading, will reduce dose to 12.5 twice a day given low normal blood pressure at times.
Sepsis 2/2 to PNA
-CT 12/02/24 with Moderate right upper lobe and severe right lower lobe consolidation probably pneumonia. Clinical and laboratory correlation recommended. Small right pleural effusion.
-suspect Strep pneumonia--ID and Pulm following
-single blood cx positive, will check 1 more blood pressure to ensure she clears given history of prostatic mitral valve and tricuspid repair
MV replacement:no abnormal flow
TV repair: no abnormal flow
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
-not in CHF
-EF normalized
Will follow, d/w Dr Talamantes.
Subjective;
She is feeling better, thinks she is less short of breath asking about discharge
Data Reviewed:
-
CT scan above
TTE 12/02/24 CONCLUSIONS
Normal biventricular size and systolic function without regional wall motion
abnormality. LVEF 55-60%.
#31 mm Mitris bioprosthesis mitral valve replacement with mean gradient of 5
mmHg. No mitral regurgitation.
#28 Tri Ad band tricuspid valve repair with mean gradient of 2 mmHg. Trace
tricuspid regurgitation.
Compared to prior echocardiogram in March 2024, LVEF has improved from 48% to
55-60%. Echocardiogram is otherwise unchanged.
-
Echocardiogram 03/31/2024 shows normal LV cavity size and thickness with mildly reduced LVEF at 48.5% by Quezada's biplane. Abnormal paradoxical septal motion consistent with postoperative status. Well-seated number 31 mm mitral is bioprosthetic
mitral valve replacement with mean gradient 4 mmHg, status post #28 triad band tricuspid valve repair with trace regurgitation, aortic sclerosis without stenosis. Visually unchanged from 09/18/2023.
-
[facility] 07/22/2022 codominant circulation with no CAD. Moderate to severely elevated filling pressures severe pulmonary hypertension
Physical Exam
Vital Signs/Labs
Vital Signs
Temp Pulse Resp BP Pulse Ox
97.4 F 102 32 118/80 99
12/04/24 07:00 12/04/24 08:00 12/04/24 08:00 12/04/24 08:00 12/04/24 02:00
12/03/24 12/04/24 12/05/24
06:59 06:59 06:59
Actual Weight 134 lb 0.657 oz 134 lb 4.184 oz
12/04/24 04:14
12/04/24 04:14
PT 18.8 Sec (11.4-14.6) H 11/30/24 11:47
INR 1.55 11/30/24 11:47
APTT 38.5 Sec (23.4-35.0) H 11/30/24 11:47
Magnesium 2.4 mg/dl (1.6-2.3) H 12/04/24 04:14
Triglycerides 95 mg/dl (10-149) 12/01/24 03:40
LDL Cholesterol, Calc 42 mg/dl 12/01/24 03:40
VLDL Cholesterol, Calc 19 mg/dl (0-30) 12/01/24 03:40
HDL Cholesterol 22 mg/dl 12/01/24 03:40
TSH 36.00 uIU/ml (0.47-4.68) H 12/03/24 04:39
Free T4 0.89 ng/dl (0.78-2.19) 11/30/24 11:47
Physical Exam
Constitutional: No acute distress
Cardiovascular: Rhythm & rate is regular, Pedal edema is absent, JVD pressure is normal, Systolic murmur absent and Diastolic murmur absent
Respiratory: Respiratory effort normal, Lungs clear to auscul., Wheeze Absent, Rhonchi Absent and Crackles Present
Neuro/Psych: AO x 3
Data Reviewed
-
Date of Service: December 04, 2024
Medical Decision Making: Review of Case with other Provider (Reviewed amiodarone dosing with Dr. Talamantes will sign off)
EKG: Other (Telemetry with sinus rhythm with PVCs.)
[2024-12-04] MEDS: ROCEPHIN 1000 MG IV (11:13)
[2024-12-04] MEDS: STERILE WATER FOR INJECTION 10 ML IV (11:14)
[2024-12-04] MEDS: ELIQUIS 5 MG PO ×2 (11:14→21:09)
--- NOTE | 2024-12-04 11:24 | W.PN.ID1 ---
Date of Service
Date of Service: December 04, 2024
Today's Communication
Continue antibiotics.
Assessment / Plan
Leukocytosis
Right lower lobe pneumonia
Bacteremia
Positive streptococcal urinary antigen
Paroxysmal A-fib with RVR
HFrEF
Hypothyroidism
HTN
Hx MVR with tricuspid repair
Recommendations:
Continue ceftriaxone (d#3)
Await further ID and susceptibility of positive blood cultures.
Follow white count and temperature curve.
����������������������������������������������������������
Chief Complaint
-: Pneumonia and Bacteremia
Subjective / Review of Systems
Review of Systems: No Fever, No Chills and Cough
Vital Signs / Physical Exam
Vital Signs
Vital Signs
Temp Pulse Resp BP Pulse Ox
97.5 F 102 32 118/80 99
12/04/24 11:00 12/04/24 08:00 12/04/24 08:00 12/04/24 08:00 12/04/24 02:00
Physical Exam
Constitutional: No Acute Distress, Comfortable, Chronically Ill and Non-toxic
Eyes: Sclera Anicteric
Cardiovascular: Regular Rate and S1/S2; Negative S3/S4
Pulmonary: Coarse and Non Labored
Gastrointestinal: Soft and Non Tender
Skin: Negative Rash
Neurological: Awake and Alert
Psychological: Calm
Objective Data
Lab Data
Lab Results
12/04/24 04:14
12/04/24 04:14
PT 18.8 Sec (11.4-14.6) H 11/30/24 11:47
INR 1.55 11/30/24 11:47
APTT 38.5 Sec (23.4-35.0) H 11/30/24 11:47
Estimated Creat Clear 58 ml/min 12/04/24 04:14
Lactic Acid 1.5 mmol/L (0.7-2.0) 12/02/24 17:46
Total Bilirubin 0.5 mg/dl (0.2-1.3) 12/04/24 04:14
AST 52 U/L (14-36) H 12/04/24 04:14
ALT 34 U/L (0-35) 12/04/24 04:14
Alkaline Phosphatase 105 U/L (38-126) 12/04/24 04:14
Most recent labs reviewed.
Micro Results:
12/02/24 10:40 Blood Culture - Preliminary
Blood/Venous No Growth in 48 hours- Final report to follow
12/01/24 10:29 Blood Culture - Preliminary
Blood/Venous No Growth in 72 hours- Final report to follow
12/01/24 09:40 Blood Culture - Preliminary
Blood/Venous No Growth in 72 hours- Final report to follow
12/02/24 11:53 Blood Culture - Preliminary
Blood/Venous Positive culture in progress
Gram Stain - GPC's
12/02/24 11:36 Legionella Urinary Antigen - Final
Urine Negative for Legionella pneumophila Serogroup 1 antigen.
A negative result does not rule out the possiblity of
Legionella infection due to other serogroups or species of
Legionella. Clinical correlation is recommended.
Streptococcus pneumoniae Antigen (M - Final
Streptococcus pneumoniae
12/01/24 12:10 Influenza Types A & B ([facility]) - Final
Nasal Swab Negative for Influenza A & B, NAAT
Negative results must be combined with clinical observations
and patient history.
Nucleic Acid Amplification test (NAAT)performed on the
[employer] platform.
Imaging:
12/02/24 CT chest: Official report pending, but right lower lobe dense consolidation noted on personal review.
11/30/2024 CXR (portable): Mild elevation of the right hemidiaphragm compared with left. Hazy opacity over the right lower lung. No dense airspace consolidation noted. No effusion. No pneumothorax. Please see full dictation for additional detail.
[2024-12-04] MEDS: NSS 1000 IV ×2 (12:12→23:18)
[2024-12-04] MEDS: TYLENOL 650 MG PO ×2 (13:44→22:15)
--- NOTE | 2024-12-04 16:11 | PTCARENOTE ---
Pt's assessment as documented. Aox3, drowsy. SR/ ST with PAC's or afib on tele monitor. IVF infusing as ordered. Medicated with PRN Tylenol for generalized body aches- see MAR. Updated on plan of care. Ringing appropriately, Call concepcion within reach.
--- NOTE | 2024-12-04 16:24 | CM ---
Chart reviewed and gustavo is currently on 8 liters of oxygen, plan is to home with spouse when stable, will follow with progress.
Plan; Home when stable, will follow.
[2024-12-04] MEDS: KCL 20 MEQ PO (18:23)
[2024-12-04] MEDS: LOPRESSOR 12.5 MG PO (20:44)
[2024-12-04] MEDS: COLACE PO (20:46)
[2024-12-05] VITALS (9 sets, daily range): BP systolic 98–135; BP diastolic 62–99; BMI 24.2
--- NOTE | 2024-12-05 03:10 | PTCARENOTE ---
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 Pt was Asymptomatic during this time. Pt scheduled medications given, over time Pt HR starting to maintain in the low 100's. pt
converting back into SR with PACs and PVCs. Pt able to make needs known. Call concepcion within reach. Assessment care and vitals as charted.
[2024-12-05] MEDS: SYNTHROID 100 MCG PO (04:23)
[2024-12-05 05:18] LABS: Hematocrit 35.7 % (37.0-47.0); Hemoglobin 11.9 g/dL (12.0-16.0); Mean Corp Hgb Conc. 33.3 g/dL (33.0-37.0); Mean Corpuscular Hgb 30.2 pg (27.0-31.0); Mean Corpuscular Volume 90.6 fL (81.0-99.0); Mean Platelet Volume 9.9 fL (7.4-10.4); Platelet Count 242 10^3/uL (130-400); Red Blood Cell Count 3.94 10^6/uL (4.20-5.40); Red Cell Dist. Width 14.5 % (11.5-14.5); White Blood Cell Count 23.9 10^3/uL (4.8-10.8)
[2024-12-05 05:20] LABS: ALT (SGPT) 26 U/L (0-35); AST (SGOT) 39 U/L (14-36); Albumin 2.3 g/dl (3.5-5.0); Alkaline Phosphatase 115 U/L (38-126); Blood Urea Nitrogen 23 mg/dl (7-17); Carbon Dioxide 24 mmol/L (22-30); Chloride 109 mmol/L (98-107); Estimated Creatinine Clearance 68 ml/min; Glucose 81 mg/dl (70-99); Magnesium 2.5 mg/dl (1.6-2.3); Potassium 3.8 mmol/L (3.5-5.1); Sodium 142 mmol/L (135-145); Total Bilirubin 0.6 mg/dl (0.2-1.3); Total Protein 4.6 g/dl (6.3-8.2); eGFR > 60.00
[2024-12-05] MEDS: FARXIGA 10 MG PO (08:50)
[2024-12-05] MEDS: COLACE PO (08:50)
[2024-12-05] MEDS: LOPRESSOR 12.5 MG PO ×2 (08:51→20:32)
[2024-12-05] MEDS: PROTONIX 40 MG PO (08:51)
[2024-12-05] MEDS: VIBRAMYCIN 100 MG PO ×2 (08:51→20:30)
[2024-12-05] MEDS: OSCAL CAL 500 500 MG PO (08:51)
[2024-12-05] MEDS: PACERONE 400 MG PO ×2 (08:51→20:32)
--- NOTE | 2024-12-05 08:53 | W.PN.ID1 ---
Date of Service
Date of Service: December 05, 2024
Today's Communication
Continue ceftriaxone
Assessment / Plan
Leukocytosis
Right lower lobe pneumonia
Bacteremia with Streptococcus pneumonia
Positive streptococcal urinary antigen
Paroxysmal A-fib with RVR
HFrEF
Hypothyroidism
HTN
Hx MVR with tricuspid repair
Recommendations:
Continue ceftriaxone (d#4)
Follow white count and temperature curve.
Continue supportive measures.
����������������������������������������������������������
Chief Complaint
-: Pneumonia and Bacteremia
Subjective / Review of Systems
Patient seen and examined. Reports some earlier nausea, but that has since passed. No shortness of breath. No cough.
Review of Systems: No Fever and No Chills
Vital Signs / Physical Exam
Vital Signs
Vital Signs
Temp Pulse Resp BP Pulse Ox
97.7 F 94 21 123/80 99
12/05/24 03:00 12/05/24 06:00 12/05/24 06:00 12/05/24 06:00 12/05/24 06:00
Physical Exam
Constitutional: No Acute Distress, Comfortable, Chronically Ill and Non-toxic
Eyes: Sclera Anicteric
Cardiovascular: Irregular Rate (tachy) and S1/S2; Negative S3/S4
Pulmonary: Coarse and Non Labored
Gastrointestinal: Soft and Non Tender
Skin: Negative Rash
Neurological: Awake and Alert
Psychological: Calm
Objective Data
Lab Data
Lab Results
12/05/24 04:33
12/05/24 04:33
PT 18.8 Sec (11.4-14.6) H 11/30/24 11:47
INR 1.55 11/30/24 11:47
APTT 38.5 Sec (23.4-35.0) H 11/30/24 11:47
Estimated Creat Clear 68 ml/min 12/05/24 04:33
Lactic Acid 1.5 mmol/L (0.7-2.0) 12/02/24 17:46
Total Bilirubin 0.6 mg/dl (0.2-1.3) 12/05/24 04:33
AST 39 U/L (14-36) H 12/05/24 04:33
ALT 26 U/L (0-35) 12/05/24 04:33
Alkaline Phosphatase 115 U/L (38-126) 12/05/24 04:33
Most recent labs reviewed.
Micro Results:
12/04/24 12:04 Blood Culture - Pending
Blood/Venous
12/02/24 11:53 Blood Culture - Preliminary
Blood/Venous Streptococcus pneumoniae
Gram Stain - Preliminary
12/02/24 10:40 Blood Culture - Preliminary
Blood/Venous No Growth in 48 hours- Final report to follow
12/01/24 10:29 Blood Culture - Preliminary
Blood/Venous No Growth in 72 hours- Final report to follow
12/01/24 09:40 Blood Culture - Preliminary
Blood/Venous No Growth in 72 hours- Final report to follow
12/02/24 11:36 Legionella Urinary Antigen - Final
Urine Negative for Legionella pneumophila Serogroup 1 antigen.
A negative result does not rule out the possiblity of
Legionella infection due to other serogroups or species of
Legionella. Clinical correlation is recommended.
Streptococcus pneumoniae Antigen (M - Final
Streptococcus pneumoniae
12/01/24 12:10 Influenza Types A & B ([facility]) - Final
Nasal Swab Negative for Influenza A & B, NAAT
Negative results must be combined with clinical observations
and patient history.
Nucleic Acid Amplification test (NAAT)performed on the
[employer] platform.
Imaging:
12/02/24 CT chest: Official report pending, but right lower lobe dense consolidation noted on personal review.
11/30/2024 CXR (portable): Mild elevation of the right hemidiaphragm compared with left. Hazy opacity over the right lower lung. No dense airspace consolidation noted. No effusion. No pneumothorax. Please see full dictation for additional detail.
[2024-12-05] MEDS: TYLENOL 650 MG PO ×2 (08:56→18:16)
--- NOTE | 2024-12-05 09:00 | PTCARENOTE ---
Patient received from health program specialist. Patient resting comfortably in bed. AAO, VSS. No events noted overnight. Currently on 8L Midflow, will attempt to wean as tolerated. Some complaints of pain at this time in lower back. Continuing IV fluids.
Continuing ABX. No further testing scheduled at this time. Call concepcion in reach.
[2024-12-05 09:06] LABS: % Basophils 0.5 % (0-2); % Eosinophils 0.1 % (0-6); % Immature Granulocytes 4.2 % (0-0.5); % Lymphocytes 3.6 % (20.5-51.1); % Monocytes 7.3 % (1.7-9.3); % Neutrophils 84.3 % (42.2-75.2); Absolute Basophils 0.1 10^3/uL (0-0.2); Absolute Lymphocytes 0.9 10^3/uL (1.2-3.4); Absolute Monocytes 1.8 10^3/uL (0.1-0.6); Absolute Neutrophils 20.2 10^3/uL (1.4-6.5); Nucleated Red Blood Cells % 0 %
--- NOTE | 2024-12-05 10:15 | W.PN.HOSP.TC ---
Today's Communication/Plan
-
see plan
Assessment / Plan
Assessment / Plan
Gen: remains NAD, AAOx3.
Eyes: EOMI, PERRLA, no scleral icterus.
Neck: supple.
CV: tachy, reg rhythm, +S1/S2, no m/r/g.
Resp: CTAB anteriorly
Abd: +BS, soft, NT, ND
Skin: No rashes.
Neuro: CN 2-12 intact, non-focal.
Psych: Normal mood and affect.
12/01/24 09:40 Blood/Venous Blood Culture - Preliminary
No Growth in 4 days- Final report to follow
12/02/24 11:53 Blood/Venous Blood Culture - Preliminary
Streptococcus pneumoniae
12/02/24 11:53 Blood/Venous Gram Stain - Preliminary
12/02/24 10:40 Blood/Venous Blood Culture - Preliminary
No Growth in 48 hours- Final report to follow
12/01/24 10:29 Blood/Venous Blood Culture - Preliminary
No Growth in 72 hours- Final report to follow
12/02/24 11:36 Urine Legionella Urinary Antigen - Final
Negative for Legionella pneumophila Serogroup 1 antigen.
A negative result does not rule out the possiblity of
Legionella infection due to other serogroups or species of
Legionella. Clinical correlation is recommended.
12/02/24 11:36 Urine Streptococcus pneumoniae Antigen (M - Final
Streptococcus pneumoniae
12/01/24 12:10 Nasal Swab Influenza Types A & B ([facility]) - Final
Negative for Influenza A & B, NAAT
Negative results must be combined with clinical observations
and patient history.
Nucleic Acid Amplification test (NAAT)performed on the
[employer] platform.
Echo: Normal biventricular size and systolic function without regional wall motion
abnormality. LVEF 55-60%.
#31 mm Mitris bioprosthesis mitral valve replacement with mean gradient of 5
mmHg. No mitral regurgitation.
#28 Tri Ad band tricuspid valve repair with mean gradient of 2 mmHg. Trace
tricuspid regurgitation.
Compared to prior echocardiogram in March 2024, LVEF has improved from 48% to
55-60%. Echocardiogram is otherwise unchanged.
CT chest: Moderate right upper lobe and severe right lower lobe consolidation probably pneumonia. Clinical and laboratory correlation recommended. Small right pleural effusion. Developing mild left lower lobe pneumonia versus a pulmonary nodule.
Continued surveillance recommended. Repeat chest CT exam in approximately 2 weeks following treatment for pneumonia is recommended. Mild right lower lobe atelectasis versus scarring
Afib with RVR:
-Patient possibly missed a dose of Eliquis in the last 2 to 3 weeks and therefore no cardioversion in the ER
-initially was on cardizem gtt. She converted to SR/ST and cardizem gtt was stopped.
-12/02/24AM pt converted back to afib with RVR. BP was dropping and Amio gtt started.
-transitioned to PO Amio 12/04/24
-cont Eliquis/BB
-echo above
-cards following
Sepsis and acute hypoxemic respiratory failure due to acute B/L PNA:
-Leukocytosis with bandemia (improving)
-was on 13L Midflow, now down to 6L midflow
-CT chest above
-strep pneumo urinary Ag POS
-cont Rocephin/Doxy as per ID
-follow BCxs
AG met acidosis:
-resolved with NS @ 80cc/hr
Other problems:
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
h/o SVT
Severe PUD resulting in Gastrojejunostomy 20 years ago: cont PPI
Essential hypertension: cont BB
Hypothyroidism: cont Levoxyl
FULL/Eliquis
Total time spent on today's encounter was 50 minutes which included time spent in counseling the patient/family regarding diagnosis and treatment plan as listed above, goals of care, and symptom management. Case was discussed with nursing staff,
specialists, and care coordinators/case management. All labs and imaging personally reviewed by me. Remainder the time spent in detailed review of previous records, lab data, imaging, and other medical provider documentation.
Anticipated Discharge: > 48 hours
Subjective/Interval History
-
Date of Service: December 05, 2024
Patient reports that she continues to improve day by day stating she feels much better than yesterday.
Objective Data
-
Labs:
Laboratory Results
12/05/24
04:33
WBC 23.9 H
Hgb 11.9 L
Hct 35.7 L
Plt Count 242
Sodium 142
Potassium 3.8
Chloride 109 H
Carbon Dioxide 24
BUN 23 H
Creatinine 0.5 L
Glucose 81
Calcium 8.0 L
Total Bilirubin 0.6
AST 39 H
ALT 26
Alkaline Phosphatase 115
Vital Signs:
Vital Signs
Temp Pulse Resp BP Pulse Ox
97.3 F 100 21 120/71 97
12/05/24 07:05 12/05/24 08:51 12/05/24 06:00 12/05/24 08:51 12/05/24 09:40
I&O
12/04/24 12/05/24 12/06/24
06:59 06:59 06:59
Intake Total 1200 / 1200 1180 / 1180
Balance 1200 / 1200 1180 / 1180
[2024-12-05] MEDS: ROCEPHIN 1000 MG IV (12:47)
[2024-12-05] MEDS: STERILE WATER FOR INJECTION 10 ML IV (12:47)
[2024-12-05] MEDS: ELIQUIS 5 MG PO ×2 (12:47→20:30)
[2024-12-05] MEDS: NSS 1000 IV (12:47)
--- NOTE | 2024-12-05 15:20 | W.PN.PUL3 ---
Today's Communication / Plan
-
Antibiotics per ID
PO Amio per cardiology
Heart rate control with goal <110
Replete K>4, Mg>2
Wean down midflow NC flow rate as tolerated
If tachypnea worsens then would start high flow nasal cannula, and then if no improvement then transition to BiPAP
Low threshold to transfer to ICU if she clinically deteriorates; her O2 requirements have been improving sicne 12/04
Aspiration precautions
Up OOB as tolerated
Encouraged incentive spirometer use 10x pe hour for at least 4 hrs a day
Pulmonary service will continue to follow along
Assessment
-
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
emergent mitral valve replacement + TV repair (07/2023), and lumbosacral + cervical DDD who presented with SOB and palpitations on 11/30/2024. She started to feel unwell this past Saturday (11/28), with nausea and a dry cough which continued. On the
morning prior to arrival, her heart was racing and she felt lightheaded. She was found to be in rapid A-fib with heart rate in the 160�170s, initial BP 112/88 which dropped into the 90s/60s, and she was saturating 92% on 2 L/min. She was afebrile
to 98.8 �F. Initial labs showed leukocytosis to 14.7, 10% bands, with a negative troponin of <0.012, elevated TSH at 62.8 and free T4 WNL at 0.89. COVID-19 antigen was negative. Blood cultures were collected and flu swab was negative. Initial
CXR showed mildly elevated right hemidiaphragm with faint opacification of the right base. She initially was admitted to the IVU for A-fib with RVR. Cardiology and ID were both consulted. She then converted to sinus tachycardia on 12/01. On 12/02,
her Streptococcus pneumonia antigen returned positive, and CT chest was recommended which showed a posterior right upper lobe pneumonia and severe bilateral lobe pneumonia. Also on 12/02, she converted back into rapid A-fib with HR in 150s and
Cardizem drip was resumed however this caused hypotension. Amiodarone drip was then started per cardiology. CXR was obtained showing persistent pneumonia with suspected worsening right lower lobe opacification. Patient now being transferred to
the IMU for further care and Pulmonary services consulted for additional management/recommendations.
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
Impression:
#CAP involving posterior right upper lobe + right lower lobe likely due to Streptococcus pneumoniae given positive S. pneumoniae urine antigen
#Streptococcal pneumonia bacteremia (via BCx drawn on 12/02/2024)
#Leukocytosis with bandemia due to above with sepsis without shock
#A-fib with RVR (has history of A-fib, on Eliquis at home) - now rate controlled and she goes in and out of A-fib and NSR
#Metabolic acidosis with appropriate respiratory compensation � acidosis now resolved as of 12/05
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
#Moderate TR s/p TV repair
#PUD
#History of hypertension
#Subclinical hypothyroidism with TSH 62.8 and free T4 0.89
Plan:
- Patient reverted back to rapid A-fib on 12/02 and Cardizem drip was started, which was then switched to amiodarone gtt per cardiology due to hypotension
- Pt now weaned off amio gtt and started on PO amio on 12/03
- CT chest obtained AM of 12/02 showed a posterior right upper lobe and severe right lower lobe consolidation consistent with pneumonia with a small parapneumonic right-sided pleural effusion; also nonspecific mediastinal lymphadenopathy, likely
reactive
- Patient became increasingly hypoxic on afternoon of 12/02. Stat CXR showed similar location of right-sided pneumonia, possibly increased opacification in the right base
- Pt was TRX to IMU on 12/02 where she remains
- She is currently on 6L/min via midflow which is improved from 12/02 when she was requiring 13L/min via midflow NC; wean down supplemental oxygen to maintain SpO2 >90-94%
- If she deteriorates, then transition to high flow nasal cannula given its increased PEEP
- If WOB increases, then first try high flow as stated above, and then change to BiPAP if still not improved
- Low threshold to transfer to ICU for intubation if she continues to clinically deteriorate - seems like she is continuing to improve and does not need ICU at this time
- Continue with antibiotics as per ID, currently on ceftriaxone + doxycycline
- Blood culture drawn on 12/02 has grown Streptococcus pneumonia � insufficient growth hence unable to perform susceptibilities, per micro lab
- Surveillance blood culture from 12/04 shows NGTD
- Blood gas obtained on 12/02 showed metabolic acidosis with appropriate respiratory compensation and hypoxia with increased A-a gradient
- Lactate was WNL at 1.5
- Her acidosis is now resolved as per chemistry from 12/05
- Continue aspiration precautions
- prn nebulized bronchodilators - not currently bronchospastic
- Continue heart rate control, now off amiodarone gtt and on PO amio
- Goal HR<110
- Her TSH was highly elevated to 62.8 on admission, however free T4 was WNL
- Repeat TSH on 12/03 improved to 36
- Continue to periodically check her TSH until normalized or closer to 10; would be careful increasing dose of LT4 now as this could worsen her rapid A fib
- Maintain MAP>65
- Replete electrolytes with K>4, Mg>2
- Maintain euglycemia with goal BG 140-180
- Trend H/H and transfuse if needed to keep Hb>7g/dL; keep plt>20k, unless there is concern for bleeding then keep plt>50k
- DVT ppx: Eliquis
Pulmonary service will continue to follow along.
Data:
CT Chest with IV contrast 12/02/2024:
Moderate right upper lobe and severe right lower lobe consolidation probably pneumonia. Clinical and laboratory correlation recommended.
Small right pleural effusion.
Developing mild left lower lobe pneumonia versus a pulmonary nodule. Continued surveillance recommended. Repeat chest CT exam in approximately 2 weeks following treatment for pneumonia is recommended.
Mild right lower lobe atelectasis versus scarring
Total time spent today was 36 minutes for this encounter. Time includes reviewing laboratory test/imaging results, reviewing pertinent medical records, obtaining and reviewing medical history, performing an appropriate exam, ordering medications,
tests and procedures. Time also includes documentation of this encounter, coordinating patient care and communicating with other healthcare professionals. Total time does not include separately billed tests performed on this date of service.
Subjective Data
-
Date of Service:
Date of Service: December 05, 2024
Chief Complaint: Pulmonary Follow Up
Subjective:
Patient was seen and evaluated today at bedside (late note entry). Patient's , Alan, present at bedside. Patient feels tired today. Currently on 6 L/min via midflow nasal cannula, saturating 99%, heart rate 97 and BP 115/99. She is
actually starting to feel better with her breathing. Denies chest pain, JOSEPH, nausea, fevers or chills.
Review of Systems
General: Other (Negative unless mentioned above)
Objective Data
Data Reviewed
Vital Signs / I&O / Oxygen:
Vital Signs
Temp Pulse Resp BP Pulse Ox
97.3 F 97 28 120/71 97
12/05/24 07:05 12/05/24 10:00 12/05/24 10:00 12/05/24 08:51 12/05/24 09:40
Intake and Output
12/04/24 12/05/24 12/06/24
06:59 06:59 06:59
Intake Total 1200 / 1200 1180 / 1180
Balance 1200 / 1200 1180 / 1180
SaO2 97
Nasal Cannula flow liters per 2
minute
Physical Exam
General: Respiratory Distress (negative), Comfortable, Chills (negative) and Sweats (negative)
HEENT: Normocephalic and Anicteric
Cardiovascular: Irregular Rhythm (Irregularly irregular) and Peripheral Edema (negative)
Respiratory: Wheeze (negative), Crackles (Bilateral), Rhonchi (negative) and Non-Labored Respirations
GI: Soft, Non Distended, Non Tender and Normal Bowel Sounds
Neurology: AO x 3 and Tremors (negative)
Skin: Warm, Dry, Cyanosis (negative) and Jaundice (negative)
Labs/Micro/Reports
Lab Data
12/05/24 04:33
12/05/24 04:33
Microbiology
12/02/24 10:40 Blood/Venous Blood Culture - Preliminary
No Growth in 72 hours- Final report to follow
12/01/24 10:29 Blood/Venous Blood Culture - Preliminary
No Growth in 4 days- Final report to follow
12/01/24 09:40 Blood/Venous Blood Culture - Preliminary
No Growth in 4 days- Final report to follow
12/02/24 11:53 Blood/Venous Blood Culture - Preliminary
Streptococcus pneumoniae
12/02/24 11:53 Blood/Venous Gram Stain - Preliminary
12/02/24 11:36 Urine Legionella Urinary Antigen - Final
Negative for Legionella pneumophila Serogroup 1 antigen.
A negative result does not rule out the possiblity of
Legionella infection due to other serogroups or species of
Legionella. Clinical correlation is recommended.
12/02/24 11:36 Urine Streptococcus pneumoniae Antigen (M - Final
Streptococcus pneumoniae
[2024-12-05] MEDS: CARDIZEM 10 MG IV (16:24)
--- NOTE | 2024-12-05 17:04 | W.PN.UPDATE ---
Update Note
Progress Note Update
Was notified by RN that patient currently A-fib with RVR.
Patient seen and examined at bedside, she is asymptomatic.
Ordered Cardizem 10 mg IV and patient converted to sinus rhythm with rate 94.
Cardiology signed off, I notified notified cardiology see the patient again tomorrow.
--- NOTE | 2024-12-05 17:12 | PTCARENOTE ---
1610: Patient with sudden spike in HR to the 190's sustaining from 120's to 140's with occasional increases to 160's-170's. Patient was in Normal Sinus Rhythm. EKG done. Patient completely asymptomatic and does not state feeling her heart racing
in her chest which brought her in to the ED. Cross cover hospitalist made aware and ordered a 1x dose of 10mg IV Cardizem.
1700: Patient remains asymptomatic and now in Sinus Rhythm in the 90's. Hospitalist instructed to reach out if patient remains tachycardic.
[2024-12-05] MEDS: COLACE 100 MG PO (20:30)
[2024-12-06] VITALS (13 sets, daily range): BP systolic 100–135; BP diastolic 58–110; BMI 24.4
--- NOTE | 2024-12-06 00:41 | PTCARENOTE ---
Pt HR remaining in low 10o's to 120's with movement. Pt now on 6L midflow spo2 98%, reparations even unlabored. Assessment care and vitals as charted. Call concepcion within reach.
[2024-12-06] MEDS: NSS 1000 IV (01:19)
[2024-12-06] MEDS: TYLENOL 650 MG PO ×2 (03:02→14:41)
[2024-12-06] MEDS: SYNTHROID 100 MCG PO (04:29)
[2024-12-06 05:20] LABS: Hematocrit 34.9 % (37.0-47.0); Hemoglobin 11.5 g/dL (12.0-16.0); Mean Corpuscular Hgb 30.7 pg (27.0-31.0); Mean Corpuscular Volume 93.3 fL (81.0-99.0); Mean Platelet Volume 9.7 fL (7.4-10.4); Platelet Count 249 10^3/uL (130-400); Red Blood Cell Count 3.74 10^6/uL (4.20-5.40); Red Cell Dist. Width 14.5 % (11.5-14.5); White Blood Cell Count 15.3 10^3/uL (4.8-10.8)
[2024-12-06 05:43] LABS: Blood Urea Nitrogen 16 mg/dl (7-17); Carbon Dioxide 25 mmol/L (22-30); Chloride 110 mmol/L (98-107); Estimated Creatinine Clearance 68 ml/min; Glucose 76 mg/dl (70-99); Magnesium 2.3 mg/dl (1.6-2.3); Potassium 3.7 mmol/L (3.5-5.1); Sodium 144 mmol/L (135-145); eGFR > 60.00
[2024-12-06] MEDS: PACERONE 400 MG PO ×2 (08:12→19:49)
[2024-12-06] MEDS: FARXIGA 10 MG PO (08:13)
[2024-12-06] MEDS: PROTONIX 40 MG PO (08:13)
[2024-12-06] MEDS: OSCAL CAL 500 500 MG PO (08:13)
[2024-12-06] MEDS: VIBRAMYCIN 100 MG PO ×2 (08:13→19:49)
[2024-12-06] MEDS: COLACE 100 MG PO ×2 (08:13→19:50)
[2024-12-06] MEDS: LOPRESSOR 12.5 MG PO ×2 (08:13→19:48)
--- NOTE | 2024-12-06 09:58 | W.PN.HOSP.TC ---
Today's Communication/Plan
-
see plan
Assessment / Plan
Assessment / Plan
Gen: remains NAD, AAOx3.
Eyes: EOMI, PERRLA, no scleral icterus.
Neck: supple.
CV: tachy, irreg/irreg, +S1/S2, no m/r/g.
Resp: dec BS R base, rales in R base and midlung field
Abd: remains +BS, soft, NT, ND
Skin: No rashes.
Neuro: CN 2-12 intact, non-focal.
Psych: Normal mood and affect.
12/01/24 09:40 Blood/Venous Blood Culture - Final
No Growth - Final Report
12/04/24 12:04 Blood/Venous Blood Culture - Preliminary
No Growth in 24 hours- Final report to follow
12/02/24 11:53 Blood/Venous Blood Culture - Preliminary
Streptococcus pneumoniae
12/02/24 11:53 Blood/Venous Gram Stain - Preliminary
12/02/24 10:40 Blood/Venous Blood Culture - Preliminary
No Growth in 72 hours- Final report to follow
12/01/24 10:29 Blood/Venous Blood Culture - Preliminary
No Growth in 4 days- Final report to follow
12/02/24 11:36 Urine Legionella Urinary Antigen - Final
Negative for Legionella pneumophila Serogroup 1 antigen.
A negative result does not rule out the possiblity of
Legionella infection due to other serogroups or species of
Legionella. Clinical correlation is recommended.
12/02/24 11:36 Urine Streptococcus pneumoniae Antigen (M - Final
Streptococcus pneumoniae
12/01/24 12:10 Nasal Swab Influenza Types A & B ([facility]) - Final
Negative for Influenza A & B, NAAT
Negative results must be combined with clinical observations
and patient history.
Nucleic Acid Amplification test (NAAT)performed on the
[employer] platform.
Echo: Normal biventricular size and systolic function without regional wall motion
abnormality. LVEF 55-60%.
#31 mm Mitris bioprosthesis mitral valve replacement with mean gradient of 5
mmHg. No mitral regurgitation.
#28 Tri Ad band tricuspid valve repair with mean gradient of 2 mmHg. Trace
tricuspid regurgitation.
Compared to prior echocardiogram in March 2024, LVEF has improved from 48% to
55-60%. Echocardiogram is otherwise unchanged.
CT chest: Moderate right upper lobe and severe right lower lobe consolidation probably pneumonia. Clinical and laboratory correlation recommended. Small right pleural effusion. Developing mild left lower lobe pneumonia versus a pulmonary nodule.
Continued surveillance recommended. Repeat chest CT exam in approximately 2 weeks following treatment for pneumonia is recommended. Mild right lower lobe atelectasis versus scarring
Afib with RVR:
-Patient possibly missed a dose of Eliquis in the last 2 to 3 weeks and therefore no cardioversion in the ER
-initially was on cardizem gtt. She converted to SR/ST and cardizem gtt was stopped.
-12/02/24AM pt converted back to afib with RVR. BP was dropping and Amio gtt started.
-transitioned to PO Amio 12/04/24
-cont Eliquis/BB
-echo above
-cards following
-note, afib with RVR 12/04/24, converted to SR with IV cardizem bolus
Sepsis and acute hypoxemic respiratory failure due to acute B/L PNA:
-Leukocytosis with bandemia (improving)
-was on 13L Midflow, now down to 6L midflow
-CT chest above
-strep pneumo urinary Ag POS
-cont Rocephin/Doxy as per ID
-follow BCxs
AG met acidosis:
-resolved with NS @ 80cc/hr
Other problems:
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
h/o SVT
Severe PUD resulting in Gastrojejunostomy 20 years ago: cont PPI
Essential hypertension: cont BB
Hypothyroidism: cont Levoxyl
FULL/Eliquis
Total time spent on today's encounter was 51 minutes which included time spent in counseling the patient/family regarding diagnosis and treatment plan as listed above, goals of care, and symptom management. Case was discussed with nursing staff,
specialists, and care coordinators/case management. All labs and imaging personally reviewed by me. Remainder the time spent in detailed review of previous records, lab data, imaging, and other medical provider documentation.
Anticipated Discharge: 24 - 48 hours
Subjective/Interval History
-
Date of Service: December 06, 2024
No new complaints. States she continues to improved daily.
Objective Data
-
Labs:
Laboratory Results
12/06/24
05:02
WBC 15.3 H
Hgb 11.5 L
Hct 34.9 L
Plt Count 249
Sodium 144
Potassium 3.7
Chloride 110 H
Carbon Dioxide 25
BUN 16
Creatinine 0.4 L
Glucose 76
Calcium 8.0 L
Vital Signs:
Vital Signs
Temp Pulse Resp BP Pulse Ox
98.0 F 112 24 103/80 99
12/06/24 07:23 12/06/24 08:09 12/06/24 08:09 12/06/24 08:09 12/06/24 08:19
I&O
12/05/24 12/06/24 12/07/24
06:59 06:59 06:59
Intake Total 1180 / 1180 1979
Balance 1180 / 1180 1979
--- NOTE | 2024-12-06 10:08 | W.PN.ID1 ---
Date of Service
Date of Service: December 06, 2024
Today's Communication
Continue ceftriaxone for today.
Assessment / Plan
Leukocytosis
Right lower lobe pneumonia
Bacteremia with Streptococcus pneumonia
Positive streptococcal urinary antigen
Paroxysmal A-fib with RVR
- Currently back in A-fib
HFrEF
Hypothyroidism
HTN
Hx MVR with tricuspid repair
Recommendations:
White count continues to improve.
Continue ceftriaxone (d#5)
Follow white count and temperature curve.
Continue supportive measures.
����������������������������������������������������������
Chief Complaint
-: Pneumonia and Bacteremia
Subjective / Review of Systems
Patient seen and examined.
Vital Signs / Physical Exam
Vital Signs
Vital Signs
Temp Pulse Resp BP Pulse Ox
98.0 F 112 24 103/80 99
12/06/24 07:23 12/06/24 08:09 12/06/24 08:09 12/06/24 08:09 12/06/24 08:19
Physical Exam
Constitutional: No Acute Distress, Comfortable, Chronically Ill and Non-toxic
Eyes: Sclera Anicteric
Cardiovascular: Irregular Rate (tachy) and S1/S2; Negative S3/S4
Pulmonary: Coarse and Non Labored
Gastrointestinal: Soft and Non Tender
Skin: Negative Rash
Neurological: Awake and Alert
Psychological: Calm
Objective Data
Lab Data
Lab Results
12/06/24 05:02
12/06/24 05:02
PT 18.8 Sec (11.4-14.6) H 11/30/24 11:47
INR 1.55 11/30/24 11:47
APTT 38.5 Sec (23.4-35.0) H 11/30/24 11:47
Estimated Creat Clear 68 ml/min 12/06/24 05:02
Lactic Acid 1.5 mmol/L (0.7-2.0) 12/02/24 17:46
Total Bilirubin 0.6 mg/dl (0.2-1.3) 12/05/24 04:33
AST 39 U/L (14-36) H 12/05/24 04:33
ALT 26 U/L (0-35) 12/05/24 04:33
Alkaline Phosphatase 115 U/L (38-126) 12/05/24 04:33
Most recent labs reviewed.
Micro Results:
12/01/24 09:40 Blood Culture - Final
Blood/Venous No Growth - Final Report
12/04/24 12:04 Blood Culture - Preliminary
Blood/Venous No Growth in 24 hours- Final report to follow
12/02/24 11:53 Blood Culture - Preliminary
Blood/Venous Streptococcus pneumoniae
Gram Stain - Preliminary
12/02/24 10:40 Blood Culture - Preliminary
Blood/Venous No Growth in 72 hours- Final report to follow
12/01/24 10:29 Blood Culture - Preliminary
Blood/Venous No Growth in 4 days- Final report to follow
12/02/24 11:36 Legionella Urinary Antigen - Final
Urine Negative for Legionella pneumophila Serogroup 1 antigen.
A negative result does not rule out the possiblity of
Legionella infection due to other serogroups or species of
Legionella. Clinical correlation is recommended.
Streptococcus pneumoniae Antigen (M - Final
Streptococcus pneumoniae
12/01/24 12:10 Influenza Types A & B ([facility]) - Final
Nasal Swab Negative for Influenza A & B, NAAT
Negative results must be combined with clinical observations
and patient history.
Nucleic Acid Amplification test (NAAT)performed on the
[employer] platform.
Imaging:
12/02/24 CT chest: Official report pending, but right lower lobe dense consolidation noted on personal review.
11/30/2024 CXR (portable): Mild elevation of the right hemidiaphragm compared with left. Hazy opacity over the right lower lung. No dense airspace consolidation noted. No effusion. No pneumothorax. Please see full dictation for additional detail.
--- NOTE | 2024-12-06 11:03 | W.PN.CD ---
Today's Communication / Plan
-
Amio:
- Amiodarone 400 mg p.o. twice daily while inpatient.
- At discharge amiodarone 200 mg p.o. twice a day for 14 days then => Amio 200 one time daily
Afib
- Dr. Ram will discuss chronic management as outpatient, PVI and if manager long term care Amio warranted
At discharge move metoprolol to metoprolol ER 25 mg one time a day
She should see Dr. Ram or one of our pharmacy director in 2-3 weeks to assess rhythm tolerance to Amio and arrange amio surveillance
Cardiology will sign off
Impression / Plan
-
74 y/o pt with history of MR--acute flaile P2 and CHF s/p MVR��31mm Mitris bio-prosthesis, Moderate TR s/p TV repair(28mm Tri Ad band)�,HTN, PSVT and PAF.��
Acute hypoxic respiratory failure 2/2 to pna:
-improved
PAF: initially RVR now Sinus Tachycardia
-in Sinus with PVCs. Had a short paroxysm of AFib on 12/05/2024 and we were asked to see again
-Would continue amiodarone 400 mg p.o. twice daily while inpatient => at discharge 200 mg p.o. twice a day for 14 days then 200 mg daily
-Will discuss option of PVI once recovered.
-Low dose metoprolol
Sepsis 2/2 to PNA
-CT 12/02/24 with Moderate right upper lobe and severe right lower lobe consolidation probably pneumonia. Clinical and laboratory correlation recommended. Small right pleural effusion.
-suspect Strep pneumonia--ID and Pulm following
-single blood cx positive, 1 more blood culture was negative (at risk for endocarditis given mitral valve replacement and tricuspid repair)
MV replacement:no abnormal flow
TV repair: no abnormal flow
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
-not in HF
-EF normalized
Subjective:
She is feeling better, thinks she is less short of breath asking about discharge
Data:
-
CT scan above
TTE 12/02/24 CONCLUSIONS
Normal biventricular size and systolic function without regional wall motion
abnormality. LVEF 55-60%.
#31 mm Mitris bioprosthesis mitral valve replacement with mean gradient of 5
mmHg. No mitral regurgitation.
#28 Tri Ad band tricuspid valve repair with mean gradient of 2 mmHg. Trace
tricuspid regurgitation.
Compared to prior echocardiogram in March 2024, LVEF has improved from 48% to
55-60%. Echocardiogram is otherwise unchanged.
Echocardiogram 03/31/2024 shows normal LV cavity size and thickness with mildly reduced LVEF at 48.5% by Quezada's biplane. Abnormal paradoxical septal motion consistent with postoperative status. Well-seated number 31 mm mitral is bioprosthetic
mitral valve replacement with mean gradient 4 mmHg, status post #28 triad band tricuspid valve repair with trace regurgitation, aortic sclerosis without stenosis. Visually unchanged from 09/18/2023.
[facility] 07/22/2022 codominant circulation with no CAD. Moderate to severely elevated filling pressures severe pulmonary hypertension
Physical Exam
Vital Signs/Labs
Vital Signs
Temp Pulse Resp BP Pulse Ox
98.0 F 112 24 103/80 99
12/06/24 07:23 12/06/24 08:09 12/06/24 08:09 12/06/24 08:09 12/06/24 08:19
12/05/24 12/06/24 12/07/24
06:59 06:59 06:59
Actual Weight 61.9 kg 62.4 kg
12/06/24 05:02
12/06/24 05:02
PT 18.8 Sec (11.4-14.6) H 11/30/24 11:47
INR 1.55 11/30/24 11:47
APTT 38.5 Sec (23.4-35.0) H 11/30/24 11:47
Magnesium 2.3 mg/dl (1.6-2.3) 12/06/24 05:02
Triglycerides 95 mg/dl (10-149) 12/01/24 03:40
LDL Cholesterol, Calc 42 mg/dl 12/01/24 03:40
VLDL Cholesterol, Calc 19 mg/dl (0-30) 12/01/24 03:40
HDL Cholesterol 22 mg/dl 12/01/24 03:40
TSH 36.00 uIU/ml (0.47-4.68) H 12/03/24 04:39
Free T4 0.89 ng/dl (0.78-2.19) 11/30/24 11:47
Physical Exam
Constitutional: No acute distress
EENT: Anicteric
Cardiovascular: Rhythm & rate is regular and Pedal edema is absent
Respiratory: Respiratory effort normal and Lungs clear to auscul.
GI: Soft and Distention absent
Neuro/Psych: AO x 3
Data Reviewed
-
Date of Service: December 06, 2024
[2024-12-06] MEDS: ELIQUIS 5 MG PO ×2 (13:00→19:50)
[2024-12-06] MEDS: ROCEPHIN 1000 MG IV (13:00)
[2024-12-06] MEDS: STERILE WATER FOR INJECTION 10 ML IV (13:00)
--- NOTE | 2024-12-06 15:34 | W.PN.PUL3 ---
Today's Communication / Plan
-
Antibiotics per ID
PO Amio per cardiology
Heart rate control with goal <110
Replete K>4, Mg>2
Now on room air as of 12/06
Aspiration precautions
Up OOB as tolerated
Encouraged incentive spirometer use 10x per hour for at least 4 hrs a day
Patient doing remarkably well. Now on room air breathing comfortably without SOB or cough. Recommend checking ambulatory pulse oximetry prior to discharge. Outpatient pulmonary office follow-up will be arranged.
No additional recommendations at this time. Pulmonary service will now sign off. Please reconsult if there are any additional questions/concerns, or if patient's respiratory status deteriorates.
Assessment
-
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
emergent mitral valve replacement + TV repair (07/2023), and lumbosacral + cervical DDD who presented with SOB and palpitations on 11/30/2024. She started to feel unwell this past Saturday (11/28), with nausea and a dry cough which continued. On the
morning prior to arrival, her heart was racing and she felt lightheaded. She was found to be in rapid A-fib with heart rate in the 160�170s, initial BP 112/88 which dropped into the 90s/60s, and she was saturating 92% on 2 L/min. She was afebrile
to 98.8 �F. Initial labs showed leukocytosis to 14.7, 10% bands, with a negative troponin of <0.012, elevated TSH at 62.8 and free T4 WNL at 0.89. COVID-19 antigen was negative. Blood cultures were collected and flu swab was negative. Initial
CXR showed mildly elevated right hemidiaphragm with faint opacification of the right base. She initially was admitted to the IVU for A-fib with RVR. Cardiology and ID were both consulted. She then converted to sinus tachycardia on 12/01. On 12/02,
her Streptococcus pneumonia antigen returned positive, and CT chest was recommended which showed a posterior right upper lobe pneumonia and severe bilateral lobe pneumonia. Also on 12/02, she converted back into rapid A-fib with HR in 150s and
Cardizem drip was resumed however this caused hypotension. Amiodarone drip was then started per cardiology. CXR was obtained showing persistent pneumonia with suspected worsening right lower lobe opacification. Patient now being transferred to
the IMU for further care and Pulmonary services consulted for additional management/recommendations.
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
Impression:
#CAP involving posterior right upper lobe + right lower lobe likely due to Streptococcus pneumoniae given positive S. pneumoniae urine antigen
#Acute respiratory failure with hypoxia due to above - hypoxia markedly improved as of 12/27
#Streptococcal pneumonia bacteremia (via BCx drawn on 12/02/2024)
#Leukocytosis with bandemia due to above with sepsis without shock
#A-fib with RVR (has history of A-fib, on Eliquis at home) - now rate controlled and she goes in and out of A-fib and NSR
#Metabolic acidosis with appropriate respiratory compensation � acidosis now resolved as of 12/05
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
#Moderate TR s/p TV repair
#PUD
#History of hypertension
#Subclinical hypothyroidism with TSH 62.8 and free T4 0.89
Plan:
- Patient reverted back to rapid A-fib on 12/02 and Cardizem drip was started, which was then switched to amiodarone gtt per cardiology due to hypotension
- Pt now weaned off amio gtt and started on PO amio on 12/03
- CT chest obtained AM of 12/02 showed a posterior right upper lobe and severe right lower lobe consolidation consistent with pneumonia with a small parapneumonic right-sided pleural effusion; also nonspecific mediastinal lymphadenopathy, likely
reactive
- Patient became increasingly hypoxic on afternoon of 12/02. Stat CXR showed similar location of right-sided pneumonia, possibly increased opacification in the right base
- Pt was TRX to IMU on 12/02 where she remains
- As of 12/05, she was requiring 6L/min via midflow which had improved from 12/02 when she was requiring 13L/min via midflow NC; as of 12/06, she is now on room air and breathing comfortably. maintain SpO2 >90-94%
- Would still check an ambulatory pulse oximetry prior to discharge given that her resting SaO2 is <96% on room air at rest
- Continue with antibiotics as per ID, currently on ceftriaxone + doxycycline
- Blood culture drawn on 12/02 has grown Streptococcus pneumonia � insufficient growth hence unable to perform susceptibilities, per micro lab
- Surveillance blood culture from 12/04 shows NGTD
- Blood gas obtained on 12/02 showed metabolic acidosis with appropriate respiratory compensation and hypoxia with increased A-a gradient
- Lactate was WNL at 1.5
- Her acidosis is resolved as per chemistry from 12/05
- Continue aspiration precautions
- prn nebulized bronchodilators - not currently bronchospastic
- Continue heart rate control, now off amiodarone gtt and on PO amio
- Goal HR<110
- Her TSH was highly elevated to 62.8 on admission, however free T4 was WNL
- Repeat TSH on 12/03 improved to 36
- Continue to periodically check her TSH until normalized or closer to 10; would be careful increasing dose of LT4 now as this could worsen her rapid A fib; TFTs can be rechecked as an outpt
- Maintain MAP>65
- Replete electrolytes with K>4, Mg>2
- Maintain euglycemia with goal BG 140-180
- Trend H/H and transfuse if needed to keep Hb>7g/dL; keep plt>20k, unless there is concern for bleeding then keep plt>50k
- DVT ppx: Eliquis
Patient doing remarkably well. Now on room air breathing comfortably without SOB or cough. Recommend checking ambulatory pulse oximetry prior to discharge. Outpatient pulmonary office follow-up will be arranged. No additional recommendations at
this time. Pulmonary service will now sign off. Thank you for allowing us to be involved in the care of this patient. Please reconsult if there are any additional questions/concerns, or if patient's respiratory status deteriorates.
Data:
CT Chest with IV contrast 12/02/2024:
Moderate right upper lobe and severe right lower lobe consolidation probably pneumonia. Clinical and laboratory correlation recommended.
Small right pleural effusion.
Developing mild left lower lobe pneumonia versus a pulmonary nodule. Continued surveillance recommended. Repeat chest CT exam in approximately 2 weeks following treatment for pneumonia is recommended.
Mild right lower lobe atelectasis versus scarring
Total time spent today was 28 minutes for this encounter. Time includes reviewing laboratory test/imaging results, reviewing pertinent medical records, obtaining and reviewing medical history, performing an appropriate exam, ordering medications,
tests and procedures. Time also includes documentation of this encounter, coordinating patient care and communicating with other healthcare professionals. Total time does not include separately billed tests performed on this date of service.
Subjective Data
-
Date of Service:
Date of Service: December 06, 2024
Chief Complaint: Pulmonary Follow Up
Subjective:
Patient seen earlier today (late note entry). Currently on room air and she is breathing well. She denies shortness of breath or cough. She is sitting in a chair in no acute distress. BP 129/78, heart rate 101 and saturating 95%. She is hoping
to be discharged home by tomorrow. Currently denies chest pain, JOSEPH, abdominal pain, nausea, diarrhea, fevers or chills.
Review of Systems
General: Other (Negative unless mentioned above)
Objective Data
Data Reviewed
Vital Signs / I&O / Oxygen:
Vital Signs
Temp Pulse Resp BP Pulse Ox
98.0 F 112 24 103/80 99
12/06/24 07:23 12/06/24 08:09 12/06/24 08:09 12/06/24 08:09 12/06/24 08:19
Intake and Output
12/05/24 12/06/24 12/07/24
06:59 06:59 06:59
Intake Total 1180 / 1180 1979
Balance 1180 / 1180 1979
SaO2 99
Nasal Cannula flow liters per 6
minute
Physical Exam
General: Respiratory Distress (negative), Comfortable, Chills (negative) and Sweats (negative)
HEENT: Normocephalic and Anicteric
Cardiovascular: S1-S2 and Peripheral Edema (negative)
Respiratory: Wheeze (negative), Rhonchi (negative), Non-Labored Respirations and Other (Coarse breath sounds heard bilaterally)
GI: Soft, Non Distended, Non Tender and Normal Bowel Sounds
Neurology: AO x 3 and Tremors (negative)
Skin: Warm, Dry, Cyanosis (negative) and Jaundice (negative)
Labs/Micro/Reports
Lab Data
12/06/24 05:02
12/06/24 05:02
Microbiology
12/01/24 09:40 Blood/Venous Blood Culture - Final
No Growth - Final Report
12/04/24 12:04 Blood/Venous Blood Culture - Preliminary
No Growth in 24 hours- Final report to follow
12/02/24 11:53 Blood/Venous Blood Culture - Preliminary
Streptococcus pneumoniae
12/02/24 11:53 Blood/Venous Gram Stain - Preliminary
12/02/24 10:40 Blood/Venous Blood Culture - Preliminary
No Growth in 72 hours- Final report to follow
12/01/24 10:29 Blood/Venous Blood Culture - Preliminary
No Growth in 4 days- Final report to follow
--- NOTE | 2024-12-06 18:00 | PTCARENOTE ---
Weaned off o2 today- comfortable sao2 94% at rest. Encouraged and demonstrating C/DB techniques. Pleasant, OOB to chair for 2 meals today. Tylenol given x1 this shift for right back pain with good relief. Tele with multi arrhythmias SR/ST short
bursts PAF PACs/PVCs couplets. Rates 90s-110.
[2024-12-06] MEDS: KCL 20 MEQ PO (19:50)
--- NOTE | 2024-12-06 20:53 | PTCARENOTE ---
administered patient's PO evening medications. PO potassium was cut in half per patients request. Patient choked on half of PO potassium and vomited after. Patient vomited up other PO meds that were given prior. INSTRUMENT TECHNICIAN made aware. orders placed.
Patient is feeling better but does not want to take PO potassium again. speech consult placed.
[2024-12-06] MEDS: COMPAZINE 10 MG IV (21:11)
--- NOTE | 2024-12-06 22:51 | PTCARENOTE ---
patient desating into low 80s while sleeping on room air. 2L NC placed on patient for overnight.
[2024-12-07] VITALS: BP 106/70
[2024-12-07] MEDS: TYLENOL 650 MG PO ×2 (01:33→09:28)
[2024-12-07 02:00] VITALS: BP 142/86
[2024-12-07] MEDS: SYNTHROID 100 MCG PO (05:36)
[2024-12-07 05:38] VITALS: BMI 24.1
[2024-12-07] MEDS: LOPRESSOR 12.5 MG PO (09:16)
[2024-12-07] MEDS: OSCAL CAL 500 500 MG PO (09:16)
[2024-12-07] MEDS: VIBRAMYCIN 100 MG PO (09:16)
[2024-12-07] MEDS: PROTONIX 40 MG PO (09:16)
[2024-12-07] MEDS: PACERONE 400 MG PO (09:17)
[2024-12-07] MEDS: FARXIGA 10 MG PO (09:17)
[2024-12-07] MEDS: COLACE PO ×2 (09:17→09:20)
--- NOTE | 2024-12-07 10:57 | W.PN.HOSP.TC ---
Addendum entered and electronically signed by Torrey Talamantes MD 12/07/24 12:30:
Total time spent on d/c = 35 min. This included today's physical exam, progress note, review of laboratory and diagnostic data, preparation of discharge documents and prescriptions, and discussions about the pt's hospital course and discharge plan
with the patient and other medical laboratory scientist involved in the patient's care.
Original Note:
Today's Communication/Plan
-
see plan
Assessment / Plan
Assessment / Plan
Gen: Continues to remain NAD, AAOx3.
Eyes: EOMI, PERRLA, no scleral icterus.
Neck: supple.
CV: Remains tachy, irreg/irreg, +S1/S2, no m/r/g.
Resp: dec BS R base
Abd: +BS, soft, NT, ND
Skin: No rashes.
Neuro: CN 2-12 intact, non-focal.
Psych: Normal mood and affect.
12/02/24 10:40 Blood/Venous Blood Culture - Final
No Growth - Final Report
12/04/24 12:04 Blood/Venous Blood Culture - Preliminary
No Growth in 48 hours- Final report to follow
12/01/24 10:29 Blood/Venous Blood Culture - Final
No Growth - Final Report
12/01/24 09:40 Blood/Venous Blood Culture - Final
No Growth - Final Report
12/02/24 11:53 Blood/Venous Blood Culture - Preliminary
Streptococcus pneumoniae
12/02/24 11:53 Blood/Venous Gram Stain - Preliminary
12/02/24 11:36 Urine Legionella Urinary Antigen - Final
Negative for Legionella pneumophila Serogroup 1 antigen.
A negative result does not rule out the possiblity of
Legionella infection due to other serogroups or species of
Legionella. Clinical correlation is recommended.
12/02/24 11:36 Urine Streptococcus pneumoniae Antigen (M - Final
Streptococcus pneumoniae
12/01/24 12:10 Nasal Swab Influenza Types A & B ([facility]) - Final
Negative for Influenza A & B, NAAT
Negative results must be combined with clinical observations
and patient history.
Nucleic Acid Amplification test (NAAT)performed on the
[employer] platform.
Echo: Normal biventricular size and systolic function without regional wall motion
abnormality. LVEF 55-60%.
#31 mm Mitris bioprosthesis mitral valve replacement with mean gradient of 5
mmHg. No mitral regurgitation.
#28 Tri Ad band tricuspid valve repair with mean gradient of 2 mmHg. Trace
tricuspid regurgitation.
Compared to prior echocardiogram in March 2024, LVEF has improved from 48% to
55-60%. Echocardiogram is otherwise unchanged.
CT chest: Moderate right upper lobe and severe right lower lobe consolidation probably pneumonia. Clinical and laboratory correlation recommended. Small right pleural effusion. Developing mild left lower lobe pneumonia versus a pulmonary nodule.
Continued surveillance recommended. Repeat chest CT exam in approximately 2 weeks following treatment for pneumonia is recommended. Mild right lower lobe atelectasis versus scarring
Afib with RVR:
-Patient possibly missed a dose of Eliquis in the last 2 to 3 weeks and therefore no cardioversion in the ER
-initially was on cardizem gtt. She converted to SR/ST and cardizem gtt was stopped.
-12/02/24AM pt converted back to afib with RVR. BP was dropping and Amio gtt started.
-transitioned to PO Amio 12/04/24
-cont Eliquis/BB
-echo above
-cards following
-note, afib with RVR 12/04/24, converted to SR with IV cardizem bolus. Was in and out of afib. Final cards recs from 12/06/24 noted.
Sepsis/bacteremia and acute hypoxemic respiratory failure due to acute B/L PNA:
-Leukocytosis with bandemia (improving)
-was on 13L Midflow, now weaned to RA
-CT chest above
-strep pneumo urinary Ag POS
-cont Rocephin/Doxy as per ID
-1 of 2 BCxs with strep pneumoniae
AG met acidosis:
-resolved with NS @ 80cc/hr
Other problems:
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
h/o SVT
Severe PUD resulting in Gastrojejunostomy 20 years ago: cont PPI
Essential hypertension: cont BB
Hypothyroidism: cont Levoxyl
FULL/Eliquis
PT/OT/speech, home O2 eval, goal for d/c today
Anticipated Discharge: Today
Subjective/Interval History
-
Date of Service: December 07, 2024
Denies shortness of breath.
Objective Data
-
Vital Signs:
Vital Signs
Temp Pulse Resp BP Pulse Ox
97.9 F 97 36 142/86 96
12/07/24 07:55 12/07/24 08:00 12/07/24 08:00 12/07/24 02:00 12/07/24 08:00
I&O
12/06/24 12/07/24 12/08/24
06:59 06:59 06:59
Intake Total 1979
Output Total 250 / 250
Balance 1979 -250 / -250
--- NOTE | 2024-12-07 11:17 | W.PN.ID1 ---
Date of Service
Date of Service: December 07, 2024
Today's Communication
Continue antibiotics. See below�
Assessment / Plan
Leukocytosis
Right lower lobe pneumonia
Bacteremia with Streptococcus pneumonia
Positive streptococcal urinary antigen
Paroxysmal A-fib with RVR
- Currently back in A-fib
HFrEF
Hypothyroidism
HTN
Hx MVR with tricuspid repair
Recommendations:
White count continues to improve.
Continue ceftriaxone (d#6). At D/C, can transition to oral cefdinir 300 mg twice daily, to continue through 12/15/24.
Follow white count and temperature curve.
Continue supportive measures.
����������������������������������������������������������
Chief Complaint
-: Pneumonia and Bacteremia
Subjective / Review of Systems
Review of Systems: No Fever
Vital Signs / Physical Exam
Vital Signs
Vital Signs
Temp Pulse Resp BP Pulse Ox
97.9 F 97 36 142/86 96
12/07/24 07:55 12/07/24 08:00 12/07/24 08:00 12/07/24 02:00 12/07/24 08:00
Physical Exam
Constitutional: No Acute Distress, Comfortable, Chronically Ill and Non-toxic
Cardiovascular: Irregular Rate (tachy) and S1/S2; Negative S3/S4
Pulmonary: Coarse and Non Labored
Gastrointestinal: Soft and Non Tender
Skin: Negative Rash or Jaundice
Psychological: Calm
Objective Data
Lab Data
PT 18.8 Sec (11.4-14.6) H 11/30/24 11:47
INR 1.55 11/30/24 11:47
APTT 38.5 Sec (23.4-35.0) H 11/30/24 11:47
Estimated Creat Clear 68 ml/min 12/06/24 05:02
Lactic Acid 1.5 mmol/L (0.7-2.0) 12/02/24 17:46
Total Bilirubin 0.6 mg/dl (0.2-1.3) 12/05/24 04:33
AST 39 U/L (14-36) H 12/05/24 04:33
ALT 26 U/L (0-35) 12/05/24 04:33
Alkaline Phosphatase 115 U/L (38-126) 12/05/24 04:33
Most recent labs reviewed.
Micro Results:
12/02/24 10:40 Blood Culture - Final
Blood/Venous No Growth - Final Report
12/04/24 12:04 Blood Culture - Preliminary
Blood/Venous No Growth in 48 hours- Final report to follow
12/01/24 10:29 Blood Culture - Final
Blood/Venous No Growth - Final Report
12/01/24 09:40 Blood Culture - Final
Blood/Venous No Growth - Final Report
12/02/24 11:53 Blood Culture - Preliminary
Blood/Venous Streptococcus pneumoniae
Gram Stain - Preliminary
12/02/24 11:36 Legionella Urinary Antigen - Final
Urine Negative for Legionella pneumophila Serogroup 1 antigen.
A negative result does not rule out the possiblity of
Legionella infection due to other serogroups or species of
Legionella. Clinical correlation is recommended.
Streptococcus pneumoniae Antigen (M - Final
Streptococcus pneumoniae
12/01/24 12:10 Influenza Types A & B ([facility]) - Final
Nasal Swab Negative for Influenza A & B, NAAT
Negative results must be combined with clinical observations
and patient history.
Nucleic Acid Amplification test (NAAT)performed on the
[employer] platform.
Imaging:
12/02/24 CT chest: Official report pending, but right lower lobe dense consolidation noted on personal review.
11/30/2024 CXR (portable): Mild elevation of the right hemidiaphragm compared with left. Hazy opacity over the right lower lung. No dense airspace consolidation noted. No effusion. No pneumothorax. Please see full dictation for additional detail.
--- NOTE | 2024-12-07 12:05 | CM ---
Addendum entered by Vinita Kelly RN 12/07/24 16:03:
PT/OT orders added today - they recommend HH.
Spoke with patient who agrees to HH for PT only. She chooses [facility] that she had previously. Patient sees her PCP every 3 months - last in Aug.
Referral to GEOVAN[facility] Farley.
[facility] today [facility].
Original Note:
Patient with Dx Afib with RVR, Sepsis/bacteremia, acute B/L PNA. Home O2 Assessment today. Receiving IV & PO Abx. Per nurse assessment; self activity.
Met with patient who stated she feels ready for d/c to home today. IMM completed. Offered Home Health for SN and patient declined. Her will provide transport home.
No CM d/c needs identified.
Plan home today.
[2024-12-07 12:18] LABS: Blood Urea Nitrogen 11 mg/dl (7-17); Calcium 8.2 mg/dl (8.4-10.2); Carbon Dioxide 21 mmol/L (22-30); Chloride 107 mmol/L (98-107); Estimated Creatinine Clearance 68 ml/min; Glucose 106 mg/dl (70-99); Potassium 3.5 mmol/L (3.5-5.1); Sodium 142 mmol/L (135-145); eGFR > 60.00
[2024-12-07 12:18] LABS: Hematocrit 37.2 % (37.0-47.0); Hemoglobin 12.4 g/dL (12.0-16.0); Mean Corp Hgb Conc. 33.3 g/dL (33.0-37.0); Mean Corpuscular Hgb 30.6 pg (27.0-31.0); Mean Corpuscular Volume 91.9 fL (81.0-99.0); Mean Platelet Volume 9.6 fL (7.4-10.4); Platelet Count 282 10^3/uL (130-400); Red Blood Cell Count 4.05 10^6/uL (4.20-5.40); Red Cell Dist. Width 14.4 % (11.5-14.5); White Blood Cell Count 24.6 10^3/uL (4.8-10.8)
[2024-12-07 12:53] VITALS: BP 139/87
[2024-12-07] MEDS: STERILE WATER FOR INJECTION 10 ML IV (12:58)
[2024-12-07] MEDS: ROCEPHIN 1000 MG IV (12:58)
[2024-12-07] MEDS: ELIQUIS 5 MG PO (12:59)
[2024-12-07 13:10] VITALS: BP 139/87; PULSE 106; PULSE 117; O2SAT 93; O2SAT 94
--- NOTE | 2024-12-07 14:51 | W.DCSUMMARY ---
Discharge Summary
Discharge Data
Date of Admission: 11/30/24
Date of Discharge: 12/07/24
-
Pending Results: No
Hospital Course
Primary diagnoses:
Sepsis and acute hypoxemic respiratory failure due to acute streptococcus pneumoniae bilateral pneumonia with bacteremia
Atrial fibrillation with a rapid ventricular response
Anion gap metabolic acidosis
Leukocytosis with bandemia
Secondary diagnoses:
Acute mitral regurgitation due to flail P2 s/p MVR with 31mm Mitris bio-prosthesis
Moderate tricuspid regurgitation s/p RV repair (28 mm Tri Ad band)
h/o supraventricular tachycardia
Severe peptic ulcer disease resulting in Gastrojejunostomy 20 years ago: cont PPI
Essential hypertension
Hypothyroidism
Consultants:
Cardiology
Infectious disease
Pulmonary
Imaging:
Echo: Normal biventricular size and systolic function without regional wall motion
abnormality. LVEF 55-60%.
#31 mm Mitris bioprosthesis mitral valve replacement with mean gradient of 5
mmHg. No mitral regurgitation.
#28 Tri Ad band tricuspid valve repair with mean gradient of 2 mmHg. Trace
tricuspid regurgitation.
Compared to prior echocardiogram in March 2024, LVEF has improved from 48% to
55-60%. Echocardiogram is otherwise unchanged.
CT chest: Moderate right upper lobe and severe right lower lobe consolidation probably pneumonia. Clinical and laboratory correlation recommended. Small right pleural effusion. Developing mild left lower lobe pneumonia versus a pulmonary nodule.
Continued surveillance recommended. Repeat chest CT exam in approximately 2 weeks following treatment for pneumonia is recommended. Mild right lower lobe atelectasis versus scarring.
74-year-old female who initially presented with chief complaints of shortness of breath and palpitations as outlined in the H&P done on admission. Hospital course per problem list:
Afib with RVR: The patient possibly missed a dose of Eliquis in the last 2 to 3 weeks and therefore no cardioversion was done in the ER. She was initially was on cardizem gtt. She converted to SR/ST and cardizem gtt was stopped. On 12/02/24AM the
patient converted back to afib with RVR. Her blood pressure was dropping and Amio gtt was started. She was transitioned to PO Amio on 12/04/24. Echocardiogram above. Patient was seen in consultation by cardiology. Cardiology initially signed off
but was then reconsulted when the patient had afib with RVR on 12/04/24 and converted to SR with IV cardizem bolus. Patient was discharged on amiodarone taper.
Sepsis and acute hypoxemic respiratory failure due to acute streptococcus pneumoniae bilateral pneumonia with bacteremia: The patient had leukocytosis with bandemia. Imaging above. The patient required oxygen support and was up to 13L Midflow.
She was able to be weaned to RA by the time of discharge. She had a home O2 eval at the time of discharge and did not require home oxygen. Her strep pneumonia urinary antigen was positive. She had 1 of 2 blood cultures that was positive for strep
pneumoniae. She was on Rocephin and doxycycline. She is being discharged on Omnicef through 12/15/24.
Discharge Plan
-
Patient Disposition: Home (Routine Discharge)
Discharge Diagnosis/Procedures: Sepsis and bacteremia and acute hypoxemic respiratory failure due to acute bilateral pneumonia
Condition: Good
Diet: Low Cholesterol
Activity: As tolerated
Driving Restrictions: As prior to admission
Referrals:
Herbie Mccarty MD [Active] - in two to three weeks
Gordon Lara MD [Family Provider] - in less than 1 week
Prescriptions:
New
metoprolol tartrate 25 mg Tablet
12.5 mg PO BID Qty: 30 0RF
amiodarone 200 mg tablet
200 mg PO BID Qty: 28 0RF
amiodarone 200 mg tablet
200 mg PO DAILY Qty: 30 0RF
Rx Instructions:
Start 12/21/24
cefdinir 300 mg capsule
300 mg PO BID Qty: 17 0RF
Continued
levothyroxine 100 MCG tablet
100 mcg PO DAILY
Jardiance 10 mg Tablet
10 mg PO DAILY Qty: 30 3RF
cetirizine [Zyrtec] 10 mg Tablet
10 mg PO DAILYPRN PRN (Reason: seasonal allergy)
cholecalciferol (vitamin D3) [Vitamin D3] 50 mcg (2,000 unit) Tablet
3 unit PO DAILY
potassium chloride 20 mEq tablet,ER particles/crystals
20 meq PO Q48H@1900
pantoprazole 40 mg tablet,delayed release (DR/EC)
40 mg PO DAILY
loperamide 2 mg Tablet
2 mg PO TIDPRN PRN (Reason: diarrhea)
acetaminophen [Tylenol 8 Hour] 650 mg Tablet Extended Release
1,300 mg PO TIDPRN PRN (Reason: mild pain)
calcium carbonate 500 mg calcium (1,250 mg) Tablet
500 mg PO DAILY
diphenhydramine HCl [Benadryl] 25 mg Capsule
25 mg PO HSPRN PRN (Reason: allergies/sleep)
simethicone 80 mg Tablet,Chewable
80 mg PO TIDPRN PRN (Reason: gas pains)
Eliquis 5 mg Tablet
5 mg PO BID@1200,2200
Discontinued
metoprolol tartrate 25 mg tablet
25 mg PO DAILY@1200
furosemide [Lasix] 20 mg Tablet
20 mg PO Q48H
Discharge Orders:
Discharge Patient (As Directed); Ordered 12/07/24
Ordered By: Torrey Talamantes
Care Plan Goals
Care Plan Goals:
Problem: Readiness for enhanced knowledge related to diagnosis and treatment plan
Goal: Understand your diagnosis and treatment plan needs, including medications if applicable.
Instructions: Know your diagnosis, underlying causes and treatment plan options, including medications if applicable. Consult with your health care team to learn about your diagnosis and treatment plan, including medications if applicable.
Discharge Date and Time
Print Language: WOLOF
--- NOTE | 2024-12-07 16:14 | VNURNOTE ---
Home Health Liaison spoke with patient to discuss [facility] nurse/therapy, visits, schedule and homebound status. Patient is agreeable and understands that visits at home will be 2-3 x per week to assess and teach medical management. She is agreeable to
a few VN visits at home. Patient is aware that [facility] will contact them for start of care in 1-2 days after discharge from .
[facility] referral completed in [facility] Port.
== END 2024-12-07 15:35 | disposition home health service (06) | DRG 308 ==
LOC: IMU 15:52
PROVIDERS: Emergency Medicine; Nurse Practitioner Family; Registered Nurse; Student in an Organized Health Care Education/Training Program; ADMITTING PHYSICIAN Internal Medicine; ATTENDING PHYSICIAN Internal Medicine; CONSULT PHYSICIAN Internal Medicine Critical Care Medicine; EMERGENCY PHYSICIAN Emergency Medicine; FAMILY PHYSICIAN Internal Medicine; OTHER PHYSICIAN Internal Medicine Infectious Disease; OTHER PHYSICIAN Nurse Practitioner Acute Care
DX: I48.0 Paroxysmal atrial fibrillation (principal); A41.9 Sepsis, unspecified organism; J18.9 Pneumonia, unspecified organism; J96.01 Acute respiratory failure with hypoxia; E87.20 Acidosis, unspecified; I50.22 Chronic systolic (congestive) heart failure; I47.10 Supraventricular tachycardia, unspecified; B95.3 Streptococcus pneumoniae as the cause of diseases classified elsewhere; Z95.3 Presence of xenogenic heart valve; Z87.11 Personal history of peptic ulcer disease; I11.0 Hypertensive heart disease with heart failure; E03.8 Other specified hypothyroidism; D50.9 Iron deficiency anemia, unspecified; M85.80 Other specified disorders of bone density and structure, unspecified site; Z80.3 Family history of malignant neoplasm of breast; Z79.890 Hormone replacement therapy; I49.3 Ventricular premature depolarization; Z79.01 Long term (current) use of anticoagulants; Z79.84 Long term (current) use of oral hypoglycemic drugs; Z82.49 Family history of ischemic heart disease and other diseases of the circulatory system; Z98.84 Bariatric surgery status; Z11.52 Encounter for screening for COVID-19
CPT/HCPCS: 36600; 71045; 71260; 80048; 80053; 80061; 82805; 83605; 83735; 84100; 84439; 84443; 84484; 85025; 85027; 85610; 85730; 87040; 87077; 87205; 87449; 87502; 87811; 87899; 92610; 93005; 93306; 96361; 96374; 97116; 97162; 97166; 99291; Q9967

== ENCOUNTER → 2025-01-22 10:56 | Outpatient (REF) | payer OTHER, SELFPAY | LOC: HWRAD 10:56 | PROVIDERS: ATTENDING PHYSICIAN Internal Medicine | DX: I48.0 Paroxysmal atrial fibrillation (principal); J18.9 Pneumonia, unspecified organism | CPT/HCPCS: 71046 ==

== ENCOUNTER → 2025-04-09 12:48 | Outpatient (REF) | payer OTHER, SELFPAY | LOC: HWRCS 12:48 | PROVIDERS: ATTENDING PHYSICIAN Internal Medicine Cardiovascular Disease; FAMILY PHYSICIAN Internal Medicine | DX: Z95.2 Presence of prosthetic heart valve (principal); I07.1 Rheumatic tricuspid insufficiency; Z98.890 Other specified postprocedural states | CPT/HCPCS: 93306 ==